=== PATIENT | male | born 1970 | race Caucasian/White ===

== ENCOUNTER 2023-07-06 17:24 | Inpatient (IN) | payer OTHER ==
[2023-07-06] MEDS ORDERED: Zofran 4 MG/2 ML VIAL IV ONE (18:36)
[2023-07-06] MEDS ORDERED: MORPHINE SULFATE 4 MG INJ IV ONE (18:36)
[2023-07-06] MEDS ORDERED: MORPHINE SULFATE 4 MG INJ ONE (18:43)
[2023-07-06] MEDS ORDERED: Zofran 4 MG/2 ML VIAL ONE (18:43)
--- NOTE | 2023-07-06 18:44 | ERPHSYRPT ---
- History of Present Illness Time Seen by Provider: 07/06/23 17:28 Source: patient Exam Limitations: no limitations Patient Subjective Stated Complaint: Left lower leg pain Triage Nursing Assessment: Patient brought into ED per EMS and transferred to bed with assist of 3. Patient A+O X 3. Patient's skin pink, warm and dry. Patient complains of left lower leg pain 06/29. Patient's left lower leg noted to be red, swollen and warm. Patient states his left lower leg started getting red and he saw Dr. Corbin on Monday and prescribed Levaquin 5000mg PO. Patient states his left lower leg with worse today and he is unable to stand. Physician History: 52 years old male with history of type 1 diabetes mellitus, hypertension, bilateral lower extremity chronic swelling presented in the ER with increasing swelling and pain with redness left lower extremity. Patient reported he slid few days ago and hit his left knee and next day he was seen at primary care office, was given shot of antibiotic and placed on Levaquin. Since then pain and swelling is progressively worsening moderate to severe sharp and hurts to ambulate. No knee swelling. Denies any fever or chills. Reports having similar symptoms few years back. Timing/Duration: day(s) (3), constant, gradual onset, worse Quality: painful Severity: moderate Location: extremities Associated Symptoms: rash, swelling/mass/lumps Allergies/Adverse Reactions: No Known Drug Allergies Allergy (Verified 07/06/23 17:25) Home Medications: Aspirin 325 mg PO DAILY 07/16/14 [History] Furosemide [Lasix] 40 mg PO DAILY 07/16/14 [History] Insulin Glargine [Lantus Insulin] 36 BID 07/16/14 [History] Insulin Lispro [Humalog] 26 TID 07/16/14 [History] lisinopriL [Lisinopril] 20 mg PO DAILY 07/16/14 [History] Hx Tetanus, Diphtheria Vaccination/Date Given: Yes Hx Influenza Vaccination/Date Given: No Hx Pneumococcal Vaccination/Date Given: No Immunizations Up to Date: Yes Travel Risk - International Travel Have you traveled outside of the country in past 3 weeks: No - Coronavirus Screening Are you exhibiting any of the following symptoms?: No Close contact with a COVID-19 positive Pt in past 14-21 Days: No - Vaccine Status Have you recieved a Covid-19 vaccination: Yes Veneer Marker: Unknown - Vaccination Dates Date of 2cond Vaccination (if applicable): na Dates if Unknown: na - Review of Systems Constitutional: No Symptoms Eyes: No Symptoms Ears, Nose, & Throat: No Symptoms Respiratory: No Symptoms Cardiac: No Symptoms Abdominal/Gastrointestinal: No Symptoms Genitourinary Symptoms: No Symptoms Musculoskeletal: Fall, Injury Skin: Cellulitis, Skin Lesions Neurological: No Symptoms Endocrine: No Symptoms Hematologic/Lymphatic: No Symptoms Immunological/Allergic: No Symptoms - Past Medical History Pertinent Past Medical History: Yes Neurological History: No Pertinent History ENT History: No Pertinent History Cardiac History: Coronary Artery Disease Respiratory History: No Pertinent History Endocrine Medical History: Diabetes Type II Musculoskeletal History: Other History: No Pertinent History Psycho-Social History: No Pertinent History Male Reproductive Disorders: No Pertinent History Other Medical History: PT HAS VASCULAR INSUFFICENCY BILAT LOWER LEGS AND HAS BEEN REFERRED TO [facility] FOR SURGERY - Past Surgical History Past Surgical History: Yes Other Surgical History: R EYE - Social History Smoking Status: Never smoker Exposure to second hand smoke: No Drug Use: none Patient Lives Alone: Yes - Nursing Vital Signs Nursing Vital Signs: Initial Vital Signs Temperature 98.2 F 07/06/23 17:26 Pulse Rate 102 H 07/06/23 17:26 Respiratory Rate 18 07/06/23 17:26 Blood Pressure 118/59 07/06/23 17:26 O2 Sat by Pulse Oximetry 95 07/06/23 17:26 Pain Scale Pain Intensity 9 - Physical Exam General Appearance: no apparent distress, alert Ears, Nose, Throat Exam: normal ENT inspection Neck Exam: normal inspection, full range of motion Respiratory Exam: normal breath sounds, lungs clear Cardiovascular Exam: regular rate/rhythm, normal heart sounds Gastrointestinal/Abdomen Exam: soft, normal bowel sounds, No tenderness Back Exam: normal inspection, normal range of motion Extremity Exam: ravi's sign, inflammation (Left lower extremity swellin g/redness, warm tender to touch.), swelling, tenderness Neurologic Exam: alert, oriented x 3, cooperative, 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 nml as tested Skin Exam: normal color SpO2 Interpretation: normal SpO2: 97 O2 Delivery: Room Air Ordered Tests: Active Orders 24 hr Category Date Time Status VENOUS UNILAT/LIMITED EXTREMIT [US] Stat Exams 07/06/23 19:12 Taken BLOOD CULTURE Stat Lab 07/06/23 19:20 Received CBC W DIFF Stat Lab 07/06/23 18:36 Completed CMP Stat Lab 07/06/23 19:20 Completed Lactic Acid Stat Lab 07/06/23 19:22 Completed PROCALCITONIN Stat Lab 07/06/23 19:20 Completed Medication Summary Generic Name Dose Route Start Last Admin Trade Name Meghna PRN Reason Stop Dose Admin Piperacillin Sod/Tazobactam 100 mls @ 200 mls/hr 07/06/23 20:18 Sod 3.375 gm/ Sodium Chloride IV 07/06/23 20:47 STAT ONE Vancomycin HCl 2 gm in 400 mls @ 133.333 mls/hr 07/06/23 20:19 Vancomycin 2 Gram/400 Ml Bag IV 07/06/23 23:18 STAT ONE Discontinued Medications Generic Name Dose Route Start Last Admin Trade Name Freq PRN Reason Stop Dose Admin Sodium Chloride Confirm 07/06/23 20:32 Sodium Chloride 100ml Mini-Bag Plus Administered 07/06/23 20:33 Dose 100 mls @ ud IV .STK-MED ONE Morphine Sulfate 4 mg 07/06/23 18:36 07/06/23 18:47 Morphine Sulfate 4 Mg/Ml Injection IV 07/06/23 18:37 4 mg STAT ONE Administration Morphine Sulfate Confirm 07/06/23 18:43 Morphine Sulfate 4 Mg/Ml Injection Administered 07/06/23 18:44 Dose 4 mg .ROUTE .STK-MED ONE Ondansetron HCl 4 mg 07/06/23 18:36 07/06/23 18:45 Ondansetron Hcl 4 Mg/2 Ml Vial IV 07/06/23 18:37 4 mg STAT ONE Administration Ondansetron HCl Confirm 07/06/23 18:43 Ondansetron Hcl 4 Mg/2 Ml Vial Administered 07/06/23 18:44 Dose 4 mg .ROUTE .STK-MED ONE Piperacillin Sod/Tazobactam Sod Confirm 07/06/23 20:32 Piperacillin/Tazobactam Sodium 3.375 Gm Vial Administered 07/06/23 20:33 Dose 3.375 gm IV .STK-MED ONE Lab/Rad Data: Laboratory Result Diagrams 07/06/23 18:36 07/06/23 19:20 Laboratory Results 07/06/23 07/06/23 07/06/23 Range/Units 19:22 19:20 19:20 WBC (4.0-10.5) x10^3/uL RBC (4.1-5.6) x10^6/uL Hgb (12.5-18.0) g/dL Hct (42-50) % MCV (78-100) fL MCH (26-32) pg MCHC (32-36) g/dL RDW (11.5-14.0) % Plt Count (150-450) x10^3/uL MPV (7.5-11.0) fL Gran % (36.0-66.0) % Immature Gran % (Auto) (0.00-0.4) % Nucleat RBC Rel Count (0.00-0.1) % Eos # (Auto) (0-0.5) x10^3/uL Immature Gran # (Auto) (0.00-0.03) x10^3u/L Absolute Lymphs (auto) (1.0-4.6) x10^3/uL Absolute Monos (auto) (0.0-1.3) x10^3/uL Absolute Nucleated RBC (0.00-0.01) x10^3u/L Lymphocytes % (24.0-44.0) % Monocytes % (0.0-12.0) % Eosinophils % (0.00-5.0) % Basophils % (0.0-0.4) % Absolute Granulocytes (1.4-6.9) x10^3/uL Basophils # (0-0.4) x10^3/uL Sodium 138 (137-145) mmol/L Potassium 4.2 (3.5-5.1) mmol/L Chloride 104 (98-107) mmol/L Carbon Dioxide 31 H (22-30) mmol/L Anion Gap 6.8 (5-15) MEQ/L BUN 17 (9-20) mg/dL Creatinine 1.07 (0.66-1.25) mg/dL Estimated GFR > 60.0 ML/MIN Glucose 121 H (74-106) mg/dL Lactic Acid 1.1 (0.4-2.0) Calcium 7.8 L (8.4-10.2) mg/dL Total Bilirubin 1.40 H (0.2-1.3) mg/dL AST 32 (17-59) U/L ALT 34 (0-50) U/L Alkaline Phosphatase 131 H (38-126) U/L Serum Total Protein 6.4 (6.3-8.2) g/dL Albumin 3.4 L (3.5-5.0) g/dL Procalcitonin 0.070 (0.030-0.080) ng/mL 07/06/23 Range/Units 18:36 WBC 9.0 (4.0-10.5) x10^3/uL RBC 4.86 (4.1-5.6) x10^6/uL Hgb 13.0 (12.5-18.0) g/dL Hct 42.0 (42-50) % MCV 86.4 (78-100) fL MCH 26.7 (26-32) pg MCHC 31.0 L (32-36) g/dL RDW 16.6 H (11.5-14.0) % Plt Count 234 (150-450) x10^3/uL MPV 9.9 (7.5-11.0) fL Gran % 72.0 H (36.0-66.0) % Immature Gran % (Auto) 0.2 (0.00-0.4) % Nucleat RBC Rel Count 0.0 (0.00-0.1) % Eos # (Auto) 0.09 (0-0.5) x10^3/uL Immature Gran # (Auto) 0.02 (0.00-0.03) x10^3u/L Absolute Lymphs (auto) 1.64 (1.0-4.6) x10^3/uL Absolute Monos (auto) 0.74 (0.0-1.3) x10^3/uL Absolute Nucleated RBC 0.00 (0.00-0.01) x10^3u/L Lymphocytes % 18.2 L (24.0-44.0) % Monocytes % 8.2 (0.0-12.0) % Eosinophils % 1.0 (0.00-5.0) % Basophils % 0.4 (0.0-0.4) % Absolute Granulocytes 6.47 (1.4-6.9) x10^3/uL Basophils # 0.04 (0-0.4) x10^3/uL Sodium (137-145) mmol/L Potassium (3.5-5.1) mmol/L Chloride (98-107) mmol/L Carbon Dioxide (22-30) mmol/L Anion Gap (5-15) MEQ/L BUN (9-20) mg/dL Creatinine (0.66-1.25) mg/dL Estimated GFR ML/MIN Glucose (74-106) mg/dL Lactic Acid (0.4-2.0) Calcium (8.4-10.2) mg/dL Total Bilirubin (0.2-1.3) mg/dL AST (17-59) U/L ALT (0-50) U/L Alkaline Phosphatase (38-126) U/L Serum Total Protein (6.3-8.2) g/dL Albumin (3.5-5.0) g/dL Procalcitonin (0.030-0.080) ng/mL - Progress Progress: improved, pain not gone completely, re-examined Progress Note: 07/06/23 18:44 52 years old male with history of type 1 diabetes mellitus, hypertension, bilateral lower extremity chronic swelling presented in the ER with increasing swelling and pain with redness left lower extremity. Patient reported he slid few days ago and hit his left knee and next day he was seen at primary care office, was given shot of antibiotic and placed on Levaquin. Since then pain and swelling is progressively worsening moderate to severe sharp and hurts to ambulate. No knee swelling. Denies any fever or chills. Reports having similar symptoms few years back. Patient has left lower leg swelling redness. Warm and tender to touch. Positive Homans' sign. Distal neurovascular intact. We will do symptomatic treatment for pain and will obtain culture, patient has outpatient treatment failure, will be started on broad-spectrum antibiotics and admission. 07/06/23 20:36 Patient has normal white count and lactate. Obtain ultrasound venous left lower extremity which is negative for occlusive DVT per preliminary read.. Official report is pending. Patient is started on broad-spectrum antibiotics Zosyn and vancomycin. Patient has outpatient treatment failure, would benefit with IV antibiotic and admission. I have discussed with Dr. Juarez, reviewed history, work-up and patient is accepted for admission. Discussed with : Other Will see patient in: hospital (observation) Counseled pt/family regarding: lab results, diagnosis, rad results Medical Desision Making - Discussion of managment Care discussed with:: hospitalist (Dr. Juarez 8:29 PM) Reviewed:: Test results Agreed on:: Treatment plan, place in obs Will see patient: in hospital - Diagnostic Testing Diagnostic test were ordered, analyzed, and reviewed by me: Yes Radiological Interpretation: Reviewed by me - Risk of complications The pt has a high risk of morbidity or mortality based on: Decision regarding hospitilization or escalation of hosp level of care - Departure Departure Disposition: Observation Clinical Impression: Cellulitis of left lower extremity Condition: Stable Critical Care Time: No Referrals: SHILPA CORBIN MD [Primary Care Provider] - Follow up/PCP as directed
[2023-07-06 19:38] LABS: Absolute Neutrophil Ct (ANC) 6.47 x10^3/uL (1.4-6.9); BASOPHIL % 0.4 % (0.0-0.4); Basophil (Absolute #) 0.04 x10^3/uL (0-0.4); Eosinophil (Absolute #) 0.09 x10^3/uL (0-0.5); IMMATURE GRAN # 0.02 x10^3u/L (0.00-0.03); IMMATURE GRAN % 0.2 % (0.00-0.4); Lymphocyte (Absolute #) 1.64 x10^3/uL (1.0-4.6); Lymphocytes % 18.2 % (24.0-44.0); Mean Cell Volume 86.4 fL (78-100); Mean Corpuscular Hemoglobin 26.7 pg (26-32); Mean Platelet Volume 9.9 fL (7.5-11.0); Monocyte (Absolute #) 0.74 x10^3/uL (0.0-1.3); Monocytes % 8.2 % (0.0-12.0); Platelet Count 234 x10^3/uL (150-450); Red Blood Count 4.86 x10^6/uL (4.1-5.6); Red Cell Distribution Width 16.6 % (11.5-14.0)
[2023-07-06 19:48] LABS: ALBUMIN 3.4 g/dL (3.5-5.0); ALKALINE PHOSPHATASE 131 U/L (38-126); ANION GAP 6.8 MEQ/L (5-15); BLOOD UREA NITROGEN 17 mg/dL (9-20); CHLORIDE 104 mmol/L (98-107); Calcium 7.8 mg/dL (8.4-10.2); Carbon Dioxide 31 mmol/L (22-30); Creatinine 1 1.07 mg/dL (0.66-1.25); EST GLOMERULAR FILTRATION RATE > 60.0 ML/MIN; Glucose 121 mg/dL (74-106); Potassium 4.2 mmol/L (3.5-5.1); SGOT/AST 32 U/L (17-59); SGPT/ALT 34 U/L (0-50); SODIUM 138 mmol/L (137-145); Total Protein 6.4 g/dL (6.3-8.2)
[2023-07-06] MEDS ORDERED: PIPERACILLIN/TAZOBACTAM 3.375 GM in Sodium Chloride 100ML MINI-BAG PLUS 100 ML IV ONE (20:18)
[2023-07-06] MEDS ORDERED: VANCOMYCIN 2 GRAM/400 ML BAG 2 GM/400 ML PIGGYBACK IV ONE ×2 (20:19→21:30)
[2023-07-06] MEDS ORDERED: PIPERACILLIN/TAZOBACTAM IV ONE (20:32)
[2023-07-06] MEDS ORDERED: Sodium Chloride 100ML MINI-BAG PLUS 100 ML IV ONE (20:32)
[2023-07-07] MEDS ORDERED: VANCOMYCIN 1 GRAM/200 ML BAG 1 GM/200 ML PIGGYBACK IV SCH (00:45)
--- NOTE | 2023-07-07 00:55 | PCM.HP ---
History of Present Illness - Chief Complaint Chief Complaint: Left lower extremity cellulitis Date: 07/07/23 History of Present Illness: Mr. Haddad is a 52 year-old male with DM1, HTN, and PVD who presents with cellulitis. He admits to hitting his left knee on some gravel while playing touch football 5 days ago, and due to subsequent pain, redness, and swelling he pursued medical care with his PCP - he was prescribed outpatient levaquin. He presents today with worsening pain, redness, and swelling to his left lower extremity, and upon arrival to [facility], his laboratory data and imaging were fairly unremarkable - doppler US was negative. On my examination, he is resting comfortably denying any current fevers, chills, nausea, vomiting, diarrhea, syncope, presyncope, visual changes, orthopnea, PND, odynophagia, dysphagia, chest pain, shortness of breath, belly pain, dysuria, hematuria, melena, hematochezia, or neurological changes. All other systems were reviewed and were negative. - Review of Systems Constitutional: Other ( PER HPI) Medications & Allergies Home Medications: Home Medication List Aspirin 325 mg PO DAILY 07/16/14 [History Confirmed 07/16/14] Furosemide [Lasix] 40 mg PO DAILY 07/16/14 [History Confirmed 07/16/14] Insulin Glargine [Lantus Insulin] 36 BID 07/16/14 [History Confirmed 07/16/14] Insulin Lispro [Humalog] 26 TID 07/16/14 [History Confirmed 07/16/14] lisinopriL [Lisinopril] 20 mg PO DAILY 07/16/14 [History Confirmed 07/16/14] Allergies/Adverse Reactions: Allergies Allergy/AdvReac Type Severity Reaction Status Date / Time No Known Drug Allergies Allergy Verified 07/06/23 17:25 - Past Medical History Past Medical History: Yes Neurological History: No Pertinent History ENT History: No Pertinent History Cardiac History: Coronary Artery Disease Respiratory History: No Pertinent History Endocrine Medical History: Diabetes Type I Musculoskelatal History: Other History: No Pertinent History Pyscho-Social History: No Pertinent History Male Reproductive Disorders: No Pertinent History Comment: PT HAS VASCULAR INSUFFICENCY BILAT LOWER LEGS AND HAS BEEN REFERRED TO [facility] FOR SURGERY - Past Surgical History Past Surgical History: Yes Neuro Surgical History: No Pertinent History Cardiac History: No Pertinent History Respiratory Surgery: No Pertinent History GI Surgical History: No Pertinent History Genitourinary Surgical Hx: No Pertinent History Musculskeletal Surgical Hx: No Pertinent History Male Surgical History: No Pertinent History Other Surgical History: artificial R EYE - Social History Smoking Status: Never smoker Exposure to second hand smoke: No Alcohol: None Drug Use: none - Physical Exam Vital Signs: Vital Signs - 24 hr Temp Pulse Resp BP BP Pulse Ox 07/06/23 22:19 98.2 F 90 22 118/59 90 L 07/06/23 21:30 90 22 104/69 99 07/06/23 21:00 88 17 127/74 92 L 07/06/23 20:40 97 07/06/23 20:30 85 22 124/90 98 07/06/23 20:00 85 17 108/65 98 07/06/23 19:30 85 22 111/53 97 07/06/23 19:00 91 H 20 127/83 95 07/06/23 18:37 93 H 19 106/59 96 07/06/23 18:30 95 H 14 119/75 97 07/06/23 18:00 94 H 17 119/69 95 07/06/23 17:30 94 H 13 118/59 92 L 07/06/23 17:26 98.2 F 102 H 18 118/59 95 General Appearance: no apparent distress, alert Neurologic Exam: alert, oriented x 3, cooperative, normal mood/affect, nml cerebellar function, nml station & gait, sensation nml, No motor deficits Eye Exam: PERRL/EOMI, eyes nml inspection Ears, Nose, Throat Exam: normal ENT inspection, TMs normal, pharynx normal, moist mucous membranes Neck Exam: normal inspection, non-tender, supple, full range of motion Respiratory Exam: normal breath sounds, lungs clear, No respiratory distress Cardiovascular Exam: regular rate/rhythm, normal heart sounds, normal peripheral pulses Gastrointestinal/Abdomen Exam: soft, normal bowel sounds, No tenderness, No mass Back Exam: normal inspection, normal range of motion, No CVA tenderness, No v ertebral tenderness Extremity Exam: swelling, tenderness Skin Exam: rash Lymphatic Exam: No adenopathy Results - Labs Lab/Micro Results: Lab Results-Last 24 Hours 08/17/23 08/17/23 08/17/23 Range/Units 18:36 19:20 19:20 WBC 9.0 (4.0-10.5) x10^3/uL RBC 4.86 (4.1-5.6) x10^6/uL Hgb 13.0 (12.5-18.0) g/dL Hct 42.0 (42-50) % MCV 86.4 (78-100) fL MCH 26.7 (26-32) pg MCHC 31.0 L (32-36) g/dL RDW 16.6 H (11.5-14.0) % Plt Count 234 (150-450) x10^3/uL MPV 9.9 (7.5-11.0) fL Gran % 72.0 H (36.0-66.0) % Immature Gran % (Auto) 0.2 (0.00-0.4) % Nucleat RBC Rel Count 0.0 (0.00-0.1) % Eos # (Auto) 0.09 (0-0.5) x10^3/uL Immature Gran # (Auto) 0.02 (0.00-0.03) x10^3u/L Absolute Lymphs (auto) 1.64 (1.0-4.6) x10^3/uL Absolute Monos (auto) 0.74 (0.0-1.3) x10^3/uL Absolute Nucleated RBC 0.00 (0.00-0.01) x10^3u/L Lymphocytes % 18.2 L (24.0-44.0) % Monocytes % 8.2 (0.0-12.0) % Eosinophils % 1.0 (0.00-5.0) % Basophils % 0.4 (0.0-0.4) % Absolute Granulocytes 6.47 (1.4-6.9) x10^3/uL Basophils # 0.04 (0-0.4) x10^3/uL Sodium 138 (137-145) mmol/L Potassium 4.2 (3.5-5.1) mmol/L Chloride 104 (98-107) mmol/L Carbon Dioxide 31 H (22-30) mmol/L Anion Gap 6.8 (5-15) MEQ/L BUN 17 (9-20) mg/dL Creatinine 1.07 (0.66-1.25) mg/dL Estimated GFR > 60.0 ML/MIN Glucose 121 H (74-106) mg/dL Lactic Acid (0.4-2.0) Calcium 7.8 L (8.4-10.2) mg/dL Total Bilirubin 1.40 H (0.2-1.3) mg/dL AST 32 (17-59) U/L ALT 34 (0-50) U/L Alkaline Phosphatase 131 H (38-126) U/L Serum Total Protein 6.4 (6.3-8.2) g/dL Albumin 3.4 L (3.5-5.0) g/dL Procalcitonin 0.070 (0.030-0.080) ng/mL 07/06/23 Range/Units 19:22 WBC (4.0-10.5) x10^3/uL RBC (4.1-5.6) x10^6/uL Hgb (12.5-18.0) g/dL Hct (42-50) % MCV (78-100) fL MCH (26-32) pg MCHC (32-36) g/dL RDW (11.5-14.0) % Plt Count (150-450) x10^3/uL MPV (7.5-11.0) fL Gran % (36.0-66.0) % Immature Gran % (Auto) (0.00-0.4) % Nucleat RBC Rel Count (0.00-0.1) % Eos # (Auto) (0-0.5) x10^3/uL Immature Gran # (Auto) (0.00-0.03) x10^3u/L Absolute Lymphs (auto) (1.0-4.6) x10^3/uL Absolute Monos (auto) (0.0-1.3) x10^3/uL Absolute Nucleated RBC (0.00-0.01) x10^3u/L Lymphocytes % (24.0-44.0) % Monocytes % (0.0-12.0) % Eosinophils % (0.00-5.0) % Basophils % (0.0-0.4) % Absolute Granulocytes (1.4-6.9) x10^3/uL Basophils # (0-0.4) x10^3/uL Sodium (137-145) mmol/L Potassium (3.5-5.1) mmol/L Chloride (98-107) mmol/L Carbon Dioxide (22-30) mmol/L Anion Gap (5-15) MEQ/L BUN (9-20) mg/dL Creatinine (0.66-1.25) mg/dL Estimated GFR ML/MIN Glucose (74-106) mg/dL Lactic Acid 1.1 (0.4-2.0) Calcium (8.4-10.2) mg/dL Total Bilirubin (0.2-1.3) mg/dL AST (17-59) U/L ALT (0-50) U/L Alkaline Phosphatase (38-126) U/L Serum Total Protein (6.3-8.2) g/dL Albumin (3.5-5.0) g/dL Procalcitonin (0.030-0.080) ng/mL - Radiology Impressions Radiology Exams & Impressions: Radiology Procedures Category Date Time Status VENOUS UNILAT/LIMITED EXTREMIT [US] Stat Exams 07/06/23 19:12 Taken Assessment/Plan (1) Cellulitis of left lower extremity Current Visit: Yes Status: Acute Assessment & Plan: ASSESSMENT 1. Cellulitis 2. Type I Diabetes Mellitus 3. Hypertension 4. Peripheral Vascular Disease 5. Obesity PLAN 1. Broad Abx x 48 hours; cultures pending 2. US doppler negative for DVT 3. Gentle fluids x 1 L - hold lasix 4. Pain control with tylenol and morphine 5. Elevation of leg 6. Wound Care Lovenox The entirety of this encounter was done via telemedicine Everton Juarez MD Pulmonary and Critical Care Medicine Code(s): L03.116 - CELLULITIS OF LEFT LOWER LIMB Telemedicine Encounter - Telemedicine Encounter Telemedicine Encounter: The entirety of this encounter was performed via Telemedicine"
[2023-07-07] MEDS: Lactated Ringers 1,000 ML IV SCH ×2 (01:23→13:28)
[2023-07-07] MEDS ORDERED: PIPERACILLIN/TAZOBACTAM IV ONE ×2 (04:50→05:49)
[2023-07-07] MEDS ORDERED: Sodium Chloride 100ML MINI-BAG PLUS 100 ML IV ONE ×2 (04:51→05:50)
[2023-07-07 05:14] LABS: Absolute Neutrophil Ct (ANC) 7.32 x10^3/uL (1.4-6.9); BASOPHIL % 0.6 % (0.0-0.4); Basophil (Absolute #) 0.06 x10^3/uL (0-0.4); Eosinophil % 1.2 % (0.00-5.0); Eosinophil (Absolute #) 0.12 x10^3/uL (0-0.5); Hematocrit 43.4 % (42-50); Hemoglobin 13.1 g/dL (12.5-18.0); IMMATURE GRAN # 0.04 x10^3u/L (0.00-0.03); IMMATURE GRAN % 0.4 % (0.00-0.4); Lymphocyte (Absolute #) 1.74 x10^3/uL (1.0-4.6); Lymphocytes % 17.2 % (24.0-44.0); Mean Cell Volume 88.6 fL (78-100); Mean Corpuscular Hemoglobin 26.7 pg (26-32); Mean Corpuscular Hgb Concent. 30.2 g/dL (32-36); Mean Platelet Volume 10.2 fL (7.5-11.0); Monocyte (Absolute #) 0.81 x10^3/uL (0.0-1.3); Neutrophil % 72.6 % (36.0-66.0); Platelet Count 230 x10^3/uL (150-450); Red Cell Distribution Width 16.9 % (11.5-14.0); White Blood Count 10.1 x10^3/uL (4.0-10.5)
[2023-07-07] MEDS: MORPHINE SULFATE 2 MG INJ IV PRN ×3 (05:27→21:55)
[2023-07-07 05:38] LABS: ALBUMIN 3.5 g/dL (3.5-5.0); ALKALINE PHOSPHATASE 136 U/L (38-126); ANION GAP 10.1 MEQ/L (5-15); BLOOD UREA NITROGEN 17 mg/dL (9-20); CHLORIDE 101 mmol/L (98-107); Calcium 7.9 mg/dL (8.4-10.2); Carbon Dioxide 29 mmol/L (22-30); Creatinine 1 1.16 mg/dL (0.66-1.25); EST GLOMERULAR FILTRATION RATE > 60.0 ML/MIN; Glucose 174 mg/dL (74-106); Potassium 4.1 mmol/L (3.5-5.1); SGOT/AST 32 U/L (17-59); SGPT/ALT 34 U/L (0-50); SODIUM 136 mmol/L (137-145); Total Protein 6.4 g/dL (6.3-8.2)
[2023-07-07] MEDS: PIPERACILLIN/TAZOBACTAM 4.5 GM in Sodium Chloride 100ML MINI-BAG PLUS 100 ML IV SCH ×3 (05:51→21:43)
[2023-07-07] MEDS ORDERED: Lantus Insulin SQ SCH ×2 (08:00→22:00)
[2023-07-07] MEDS ORDERED: HUMALOG SQ SCH ×3 (08:00→22:00)
--- NOTE | 2023-07-07 08:45 | XRAY ---
Indication: Left leg pain and swelling. Two-dimensional sonogram and color Doppler imaging of the major venous vessels of the left performed. Comparison: None Cycle Specialist notes limited exam due to patient body habitus. No obvious thrombus seen in the examined deep venous vessels of the left leg including greater saphenous vein. Veins demonstrate normal compressibility. Venous waveforms are normal with and without augmentation. Impression: Left leg grossly negative for DVT. Comment: Preliminary report was given.
[2023-07-07] MEDS ORDERED: NON-FORMULARY ITEM (Aspirin [Aspirin] 325 MG Tablet) PO SCH (10:00)
[2023-07-07] MEDS ORDERED: LASIX 20 MG PO PRN (10:09)
[2023-07-07] MEDS ORDERED: NON-FORMULARY ITEM (Insulin Lispro 100 UNIT/ML Ml) SQ SCH (11:30)
[2023-07-07] MEDS: Ecotrin 325 MG PO SCH (11:45)
[2023-07-07] MEDS: Zestril 20 MG PO SCH (11:45)
[2023-07-07] MEDS: ENOXAPARIN SODIUM SQ SCH (11:46)
[2023-07-07] MEDS: HUMALOG SQ SCH ×2 (12:21→17:25)
[2023-07-07] MEDS: ceLEXa 20 MG PO SCH (12:22)
[2023-07-07] MEDS: LASIX 20 MG PO SCH (12:22)
[2023-07-07] MEDS: TYLENOL 325 MG PO PRN (14:39)
[2023-07-07] MEDS: VANCOMYCIN 2 GRAM/400 ML BAG 2 GM/400 ML PIGGYBACK IV SCH (15:49)
[2023-07-07] MEDS: Lantus Insulin SQ SCH (21:52)
[2023-07-07] MEDS ORDERED: NON-FORMULARY ITEM (Insulin Glargine,Hum.Rec.Anlog [Basaglar Kwikpen U-100] 100 UNIT/ML In SQ SCH (22:00)
[2023-07-08] MEDS: VANCOMYCIN 2 GRAM/400 ML BAG 2 GM/400 ML PIGGYBACK IV SCH ×2 (01:39→13:46)
[2023-07-08] MEDS: Lactated Ringers 1,000 ML IV SCH ×2 (01:39→08:15)
[2023-07-08] MEDS: PIPERACILLIN/TAZOBACTAM 4.5 GM in Sodium Chloride 100ML MINI-BAG PLUS 100 ML IV SCH ×3 (05:15→21:30)
[2023-07-08 05:35] LABS: Absolute Neutrophil Ct (ANC) 6.52 x10^3/uL (1.4-6.9); BASOPHIL % 0.6 % (0.0-0.4); Basophil (Absolute #) 0.05 x10^3/uL (0-0.4); Eosinophil % 2.1 % (0.00-5.0); Eosinophil (Absolute #) 0.19 x10^3/uL (0-0.5); Hematocrit 42.6 % (42-50); Hemoglobin 12.9 g/dL (12.5-18.0); IMMATURE GRAN # 0.04 x10^3u/L (0.00-0.03); IMMATURE GRAN % 0.4 % (0.00-0.4); Lymphocytes % 14.3 % (24.0-44.0); Mean Cell Volume 88.2 fL (78-100); Mean Corpuscular Hemoglobin 26.7 pg (26-32); Mean Corpuscular Hgb Concent. 30.3 g/dL (32-36); Mean Platelet Volume 9.8 fL (7.5-11.0); Monocyte (Absolute #) 0.98 x10^3/uL (0.0-1.3); Monocytes % 10.8 % (0.0-12.0); Neutrophil % 71.8 % (36.0-66.0); Platelet Count 252 x10^3/uL (150-450); Red Blood Count 4.83 x10^6/uL (4.1-5.6); Red Cell Distribution Width 16.9 % (11.5-14.0); White Blood Count 9.1 x10^3/uL (4.0-10.5)
[2023-07-08 05:51] LABS: ALBUMIN 3.3 g/dL (3.5-5.0); ALKALINE PHOSPHATASE 127 U/L (38-126); ANION GAP 9.2 MEQ/L (5-15); BLOOD UREA NITROGEN 17 mg/dL (9-20); CHLORIDE 103 mmol/L (98-107); Calcium 8.1 mg/dL (8.4-10.2); Carbon Dioxide 30 mmol/L (22-30); Creatinine 1 1.24 mg/dL (0.66-1.25); EST GLOMERULAR FILTRATION RATE > 60.0 ML/MIN; Glucose 86 mg/dL (74-106); SGOT/AST 26 U/L (17-59); SGPT/ALT 30 U/L (0-50); SODIUM 138 mmol/L (137-145); Total Protein 6.4 g/dL (6.3-8.2)
--- NOTE | 2023-07-08 07:59 | PCM.NOTE ---
Date and Time: 07/08/23 0033 Subjective Assessment: Mr. Haddad is a 52 year-old male with DM1, HTN, and PVD who presents with cellulitis. He admits to hitting his left knee on some gravel while playing touch football 5 days ago, he has had subsequent pain, redness, and swelling of LLE and he pursued medical care with his PCP - he was prescribed outpatient levaquin. He presented 07/07/23 with worsening pain, redness, and swelling to his left lower extremity. Doppler US obtained and was negative. Today his left ankle is swollen and he is c/o increased pain and edema. Erythema has improved. Discussed with pt his home dose of Lasix for clarification. He reported he takes 1 tab jeramie day and 1 tab at bedtime on average. He sometimes takes 2 tabs at bedtime depending on how edematous his legs are. His lasix was put in on admit orders as PRN at HS. I will change to 40mg at bedtime since he has increased edema. I aslo gave an 40 MG for the daytime dose as well today. Will obtain and XR of the left ankle since pain has increased overnight. LR IV fluids were stopped. Overnight his oxygen dropped into the 90's and 2 LNC was placed on pt. When awake it is no longer needed. Discussed his possible risk for sleep apnea and that he should have an OP sleep study after D/C. He denies further c/o at this time. <KAMERON CARTAGENA - Last Filed: 07/08/23 11:37> Date and Time: 07/08/23 1317 <MICHAEL MANJARREZ - Last Filed: 07/08/23 13:18> - Review of Systems Constitutional: No Fever, No Chills Eyes: No Symptoms Ears, Nose, & Throat: No Symptoms Respiratory: No Cough, No Short Of Breath Cardiac: No Chest Pain, No Edema, No Syncope Abdominal/Gastrointestinal: No Abdominal Pain, No Nausea, No Vomiting, No Diarrhea Genitourinary Symptoms: No Dysuria Musculoskeletal: Joint Pain (left ankle), Joint Swelling (Left ankle), No Back Pain, No Neck Pain Skin: Cellulitis (LLE), Skin Lesions (lesion on left knee from fall playing football [employer]. ), No Rash Neurological: No Dizziness, No Focal Weakness, No Sensory Changes Psychological: No Symptoms Endocrine: No Symptoms Hematologic/Lymphatic: No Symptoms Immunological/Allergic: No Symptoms <KAMERON CARTAGENA - Last Filed: 07/08/23 11:37> Objective Exam General Appearance: no apparent distress, alert, obese Neurologic Exam: alert, oriented x 3, cooperative, normal mood/affect, nml cerebellar function, sensation nml, abnormal gait (due to edema of LLE), No mot or deficits Skin Exam: normal color, warm, dry, other (Erythema and edema of LLE, appears to be improving.) Eye Exam: PERRL, EOMI, eyes nml inspection Ears, Nose, Throat Exam: normal ENT inspection, pharynx normal, moist mucous membranes Neck Exam: normal inspection, non-tender, supple, full range of motion Respiratory Exam: normal breath sounds, lungs clear, No respiratory distress Cardiovascular Exam: regular rate/rhythm, normal heart sounds Gastrointestinal/Abdomen Exam: soft, No tenderness, No mass Extremity Exam: normal range of motion, limited range of motion (LLE), tenderness (LLE), other (Left ankle pain and edema) Back Exam: normal inspection, normal range of motion, No CVA tenderness, No vertebral tenderness Male Genitalia Exam: deferred Rectal Exam: deferred <KAMERON CARTAGENA - Last Filed: 07/08/23 11:37> OBJECTIVE DATA Vital Signs: Vital Signs - 24 hr Temp Pulse Resp BP Pulse Ox 07/08/23 07:24 97.3 F 95 H 18 137/70 90 L 07/08/23 03:35 97.9 F 85 19 119/86 95 07/08/23 00:00 98.7 F 89 20 137/63 95 07/07/23 20:00 98.6 F 95 H 20 119/55 94 L 07/07/23 16:00 96.7 F 95 H 19 123/73 98 07/07/23 11:32 96.6 F 97 H 16 136/72 94 L Pain Assessment - Last Documented Pain Intensity 8 Pain Scale Used 0-10 Pain Scale Intake and Output: Intake & Output 07/05/23 07/06/23 07/07/23 07/08/23 11:59 11:59 11:59 11:59 Intake Total 1706 5728 Output Total 1150 Balance 1707 1618 Weight 161.5 kg Lab Results: Lab Results-Last 24 Hours 07/07/23 07/07/23 07/07/23 Range/Units 11:17 14:41 16:30 WBC (4.0-10.5) x10^3/uL RBC (4.1-5.6) x10^6/uL Hgb (12.5-18.0) g/dL Hct (42-50) % MCV (78-100) fL MCH (26-32) pg MCHC (32-36) g/dL RDW (11.5-14.0) % Plt Count (150-450) x10^3/uL MPV (7.5-11.0) fL Gran % (36.0-66.0) % Immature Gran % (Auto) (0.00-0.4) % Nucleat RBC Rel Count (0.00-0.1) % Eos # (Auto) (0-0.5) x10^3/uL Immature Gran # (Auto) (0.00-0.03) x10^3u/L Absolute Lymphs (auto) (1.0-4.6) x10^3/uL Absolute Monos (auto) (0.0-1.3) x10^3/uL Absolute Nucleated RBC (0.00-0.01) x10^3u/L Lymphocytes % (24.0-44.0) % Monocytes % (0.0-12.0) % Eosinophils % (0.00-5.0) % Basophils % (0.0-0.4) % Absolute Granulocytes (1.4-6.9) x10^3/uL Basophils # (0-0.4) x10^3/uL Sodium (137-145) mmol/L Potassium (3.5-5.1) mmol/L Chloride (98-107) mmol/L Carbon Dioxide (22-30) mmol/L Anion Gap (5-15) MEQ/L BUN (9-20) mg/dL Creatinine (0.66-1.25) mg/dL Estimated GFR ML/MIN Glucose (74-106) mg/dL POC Glucometer 188 H 264 H (74 to 106) mg/dL Hemoglobin A1c 8.33 H (4.5-6.0) % Calcium (8.4-10.2) mg/dL Magnesium (1.6-2.3) mg/dL Total Bilirubin (0.2-1.3) mg/dL AST (17-59) U/L ALT (0-50) U/L Alkaline Phosphatase (38-126) U/L Serum Total Protein (6.3-8.2) g/dL Albumin (3.5-5.0) g/dL 07/07/23 07/08/23 07/08/23 Range/Units 20:50 05:25 05:25 WBC 9.1 (4.0-10.5) x10^3/uL RBC 4.83 (4.1-5.6) x10^6/uL Hgb 12.9 (12.5-18.0) g/dL Hct 42.6 (42-50) % MCV 88.2 (78-100) fL MCH 26.7 (26-32) pg MCHC 30.3 L (32-36) g/dL RDW 16.9 H (11.5-14.0) % Plt Count 252 (150-450) x10^3/uL MPV 9.8 (7.5-11.0) fL Gran % 71.8 H (36.0-66.0) % Immature Gran % (Auto) 0.4 (0.00-0.4) % Nucleat RBC Rel Count 0.0 (0.00-0.1) % Eos # (Auto) 0.19 (0-0.5) x10^3/uL Immature Gran # (Auto) 0.04 H (0.00-0.03) x10^3u/L Absolute Lymphs (auto) 1.30 (1.0-4.6) x10^3/uL Absolute Monos (auto) 0.98 (0.0-1.3) x10^3/uL Absolute Nucleated RBC 0.00 (0.00-0.01) x10^3u/L Lymphocytes % 14.3 L (24.0-44.0) % Monocytes % 10.8 (0.0-12.0) % Eosinophils % 2.1 (0.00-5.0) % Basophils % 0.6 (0.0-0.4) % Absolute Granulocytes 6.52 (1.4-6.9) x10^3/uL Basophils # 0.05 (0-0.4) x10^3/uL Sodium 138 (137-145) mmol/L Potassium 4.0 (3.5-5.1) mmol/L Chloride 103 (98-107) mmol/L Carbon Dioxide 30 (22-30) mmol/L Anion Gap 9.2 (5-15) MEQ/L BUN 17 (9-20) mg/dL Creatinine 1.24 (0.66-1.25) mg/dL Estimated GFR > 60.0 ML/MIN Glucose 86 (74-106) mg/dL POC Glucometer 215 H (74 to 106) mg/dL Hemoglobin A1c (4.5-6.0) % Calcium 8.1 L (8.4-10.2) mg/dL Magnesium (1.6-2.3) mg/dL Total Bilirubin 1.70 H (0.2-1.3) mg/dL AST 26 (17-59) U/L ALT 30 (0-50) U/L Alkaline Phosphatase 127 H (38-126) U/L Serum Total Protein 6.4 (6.3-8.2) g/dL Albumin 3.3 L (3.5-5.0) g/dL 07/08/23 07/08/23 Range/Units 05:25 06:57 WBC (4.0-10.5) x10^3/uL RBC (4.1-5.6) x10^6/uL Hgb (12.5-18.0) g/dL Hct (42-50) % MCV (78-100) fL MCH (26-32) pg MCHC (32-36) g/dL RDW (11.5-14.0) % Plt Count (150-450) x10^3/uL MPV (7.5-11.0) fL Gran % (36.0-66.0) % Immature Gran % (Auto) (0.00-0.4) % Nucleat RBC Rel Count (0.00-0.1) % Eos # (Auto) (0-0.5) x10^3/uL Immature Gran # (Auto) (0.00-0.03) x10^3u/L Absolute Lymphs (auto) (1.0-4.6) x10^3/uL Absolute Monos (auto) (0.0-1.3) x10^3/uL Absolute Nucleated RBC (0.00-0.01) x10^3u/L Lymphocytes % (24.0-44.0) % Monocytes % (0.0-12.0) % Eosinophils % (0.00-5.0) % Basophils % (0.0-0.4) % Absolute Granulocytes (1.4-6.9) x10^3/uL Basophils # (0-0.4) x10^3/uL Sodium (137-145) mmol/L Potassium (3.5-5.1) mmol/L Chloride (98-107) mmol/L Carbon Dioxide (22-30) mmol/L Anion Gap (5-15) MEQ/L BUN (9-20) mg/dL Creatinine (0.66-1.25) mg/dL Estimated GFR ML/MIN Glucose (74-106) mg/dL POC Glucometer 116 H (74 to 106) mg/dL Hemoglobin A1c (4.5-6.0) % Calcium (8.4-10.2) mg/dL Magnesium 2.2 (1.6-2.3) mg/dL Total Bilirubin (0.2-1.3) mg/dL AST (17-59) U/L ALT (0-50) U/L Alkaline Phosphatase (38-126) U/L Serum Total Protein (6.3-8.2) g/dL Albumin (3.5-5.0) g/dL Radiology Exams: Radiology Procedures Category Date Time Status VENOUS UNILAT/LIMITED EXTREMIT [US] Stat Exams 07/06/23 19:12 Completed <KAMERON CARTAGENA - Last Filed: 07/08/23 11:37> Vital Signs: Vital Signs - 24 hr Temp Pulse Resp BP Pulse Ox 07/08/23 11:54 96.9 F 97 H 17 119/65 94 L 07/08/23 10:02 91 L 07/08/23 07:24 97.3 F 95 H 18 137/70 90 L 07/08/23 03:35 97.9 F 85 19 119/86 95 07/08/23 00:00 98.7 F 89 20 137/63 95 07/07/23 20:00 98.6 F 95 H 20 119/55 94 L 07/07/23 16:00 96.7 F 95 H 19 123/73 98 Pain Assessment - Last Documented Pain Intensity 8 Pain Scale Used 0-10 Pain Scale Intake and Output: Intake & Output 07/06/23 07/07/23 07/08/23 07/09/23 11:59 11:59 11:59 11:59 Intake Total 1707 7458 Output Total 1150 Balance 1707 1618 Weight 161.5 kg Lab Results: Lab Results-Last 24 Hours 07/07/23 07/07/23 07/07/23 Range/Units 14:41 16:30 20:50 WBC (4.0-10.5) x10^3/uL RBC (4.1-5.6) x10^6/uL Hgb (12.5-18.0) g/dL Hct (42-50) % MCV (78-100) fL MCH (26-32) pg MCHC (32-36) g/dL RDW (11.5-14.0) % Plt Count (150-450) x10^3/uL MPV (7.5-11.0) fL Gran % (36.0-66.0) % Immature Gran % (Auto) (0.00-0.4) % Nucleat RBC Rel Count (0.00-0.1) % Eos # (Auto) (0-0.5) x10^3/uL Immature Gran # (Auto) (0.00-0.03) x10^3u/L Absolute Lymphs (auto) (1.0-4.6) x10^3/uL Absolute Monos (auto) (0.0-1.3) x10^3/uL Absolute Nucleated RBC (0.00-0.01) x10^3u/L Lymphocytes % (24.0-44.0) % Monocytes % (0.0-12.0) % Eosinophils % (0.00-5.0) % Basophils % (0.0-0.4) % Absolute Granulocytes (1.4-6.9) x10^3/uL Basophils # (0-0.4) x10^3/uL Sodium (137-145) mmol/L Potassium (3.5-5.1) mmol/L Chloride (98-107) mmol/L Carbon Dioxide (22-30) mmol/L Anion Gap (5-15) MEQ/L BUN (9-20) mg/dL Creatinine (0.66-1.25) mg/dL Estimated GFR ML/MIN Glucose (74-106) mg/dL POC Glucometer 264 H 215 H (74 to 106) mg/dL Hemoglobin A1c 8.33 H (4.5-6.0) % Calcium (8.4-10.2) mg/dL Magnesium (1.6-2.3) mg/dL Total Bilirubin (0.2-1.3) mg/dL AST (17-59) U/L ALT (0-50) U/L Alkaline Phosphatase (38-126) U/L Serum Total Protein (6.3-8.2) g/dL Albumin (3.5-5.0) g/dL 07/08/23 07/08/23 07/08/23 Range/Units 05:25 05:25 05:25 WBC 9.1 (4.0-10.5) x10^3/uL RBC 4.83 (4.1-5.6) x10^6/uL Hgb 12.9 (12.5-18.0) g/dL Hct 42.6 (42-50) % MCV 88.2 (78-100) fL MCH 26.7 (26-32) pg MCHC 30.3 L (32-36) g/dL RDW 16.9 H (11.5-14.0) % Plt Count 252 (150-450) x10^3/uL MPV 9.8 (7.5-11.0) fL Gran % 71.8 H (36.0-66.0) % Immature Gran % (Auto) 0.4 (0.00-0.4) % Nucleat RBC Rel Count 0.0 (0.00-0.1) % Eos # (Auto) 0.19 (0-0.5) x10^3/uL Immature Gran # (Auto) 0.04 H (0.00-0.03) x10^3u/L Absolute Lymphs (auto) 1.30 (1.0-4.6) x10^3/uL Absolute Monos (auto) 0.98 (0.0-1.3) x10^3/uL Absolute Nucleated RBC 0.00 (0.00-0.01) x10^3u/L Lymphocytes % 14.3 L (24.0-44.0) % Monocytes % 10.8 (0.0-12.0) % Eosinophils % 2.1 (0.00-5.0) % Basophils % 0.6 (0.0-0.4) % Absolute Granulocytes 6.52 (1.4-6.9) x10^3/uL Basophils # 0.05 (0-0.4) x10^3/uL Sodium 138 (137-145) mmol/L Potassium 4.0 (3.5-5.1) mmol/L Chloride 103 (98-107) mmol/L Carbon Dioxide 30 (22-30) mmol/L Anion Gap 9.2 (5-15) MEQ/L BUN 17 (9-20) mg/dL Creatinine 1.24 (0.66-1.25) mg/dL Estimated GFR > 60.0 ML/MIN Glucose 86 (74-106) mg/dL POC Glucometer (74 to 106) mg/dL Hemoglobin A1c (4.5-6.0) % Calcium 8.1 L (8.4-10.2) mg/dL Magnesium 2.2 (1.6-2.3) mg/dL Total Bilirubin 1.70 H (0.2-1.3) mg/dL AST 26 (17-59) U/L ALT 30 (0-50) U/L Alkaline Phosphatase 127 H (38-126) U/L Serum Total Protein 6.4 (6.3-8.2) g/dL Albumin 3.3 L (3.5-5.0) g/dL 07/08/23 07/08/23 Range/Units 06:57 11:20 WBC (4.0-10.5) x10^3/uL RBC (4.1-5.6) x10^6/uL Hgb (12.5-18.0) g/dL Hct (42-50) % MCV (78-100) fL MCH (26-32) pg MCHC (32-36) g/dL RDW (11.5-14.0) % Plt Count (150-450) x10^3/uL MPV (7.5-11.0) fL Gran % (36.0-66.0) % Immature Gran % (Auto) (0.00-0.4) % Nucleat RBC Rel Count (0.00-0.1) % Eos # (Auto) (0-0.5) x10^3/uL Immature Gran # (Auto) (0.00-0.03) x10^3u/L Absolute Lymphs (auto) (1.0-4.6) x10^3/uL Absolute Monos (auto) (0.0-1.3) x10^3/uL Absolute Nucleated RBC (0.00-0.01) x10^3u/L Lymphocytes % (24.0-44.0) % Monocytes % (0.0-12.0) % Eosinophils % (0.00-5.0) % Basophils % (0.0-0.4) % Absolute Granulocytes (1.4-6.9) x10^3/uL Basophils # (0-0.4) x10^3/uL Sodium (137-145) mmol/L Potassium (3.5-5.1) mmol/L Chloride (98-107) mmol/L Carbon Dioxide (22-30) mmol/L Anion Gap (5-15) MEQ/L BUN (9-20) mg/dL Creatinine (0.66-1.25) mg/dL Estimated GFR ML/MIN Glucose (74-106) mg/dL POC Glucometer 116 H 138 H (74 to 106) mg/dL Hemoglobin A1c (4.5-6.0) % Calcium (8.4-10.2) mg/dL Magnesium (1.6-2.3) mg/dL Total Bilirubin (0.2-1.3) mg/dL AST (17-59) U/L ALT (0-50) U/L Alkaline Phosphatase (38-126) U/L Serum Total Protein (6.3-8.2) g/dL Albumin (3.5-5.0) g/dL Radiology Exams: Radiology Procedures Category Date Time Status ANKLE (3 VIEWS) Routine Exams 07/08/23 11:38 Taken VENOUS UNILAT/LIMITED EXTREMIT [US] Stat Exams 07/06/23 19:12 Completed Multi-Disciplinary Progress Notes: Multi-Disciplinary Progress Notes 07/08/23 10:00 Respiratory Note by Makayla Matthew On morning rounds this RT found pt to be wearing 2L oxygen. Pt states he does not wear oxygen at home or wear bipap/cpap at night. Unsure why pt was placed on oxygen. Room air sat 91%. Initialized on 07/08/23 10:00 - END OF NOTE <MICHAEL MANJARREZ - Last Filed: 07/08/23 13:18> Assessment/Plan (1) Cellulitis of left lower extremity Current Visit: Yes Status: Acute Assessment & Plan: - Zosyn/ vancomycin - BC cultures negative X2 - US doppler negative for DVT - Lasix BID - IV fluids stopped - Pain control with tylenol and morphine - Elevation of leg - Wound Care - PT Code(s): L03.116 - CELLULITIS OF LEFT LOWER LIMB (2) Type I diabetes mellitus Current Visit: Yes Status: Acute Assessment & Plan: - A1C 8.33 - Lantus, Humalog - Controlled (3) Hypertension Current Visit: Yes Status: Acute Assessment & Plan: - Controlled - Continue Lisinopril Code(s): I10 - ESSENTIAL (PRIMARY) HYPERTENSION (4) Peripheral vascular disease Current Visit: Yes Status: Acute Assessment & Plan: - Chronic Code(s): I73.9 - PERIPHERAL VASCULAR DISEASE, UNSPECIFIED (5) Obesity Current Visit: Yes Status: Acute Assessment & Plan: - Discussed diet and exercise management Code(s): E66.9 - OBESITY, UNSPECIFIED (6) Left ankle pain Current Visit: Yes Status: Acute Qualifiers: Chronicity: acute Qualified Code(s): M25.572 - Pain in left ankle and joints of left foot Assessment & Plan: - XR left ankle- pending Code(s): M25.572 - PAIN IN LEFT ANKLE AND JOINTS OF LEFT FOOT (7) Oxygen desaturation during sleep Current Visit: Yes Status: Acute Assessment & Plan: -O2 dropped at night into 80's and 2LNC placed to keep O2 >92% - Baseline RA - Will need sleep study at d/c as may have sleep apnea Code(s): G47.34 - IDIO SLEEP RELATED NONOBSTRUCTIVE ALVEOLAR HYPOVENTILATION (8) Depression Current Visit: Yes Status: Acute Assessment & Plan: - continue Celexa D/C plan 1-2 days VTE: Lovenox Next of KIN: Joon Grace, Code(s): F32.A - DEPRESSION, UNSPECIFIED <KAMERON CARTAGENA - Last Filed: 07/08/23 11:37> HORTENCIA Encounter - HORTENCIA Encounter Attestation HORTENCIA Encounter Attestation: IhavepersonallyseenandexCarole,ARDEN MCKEE andhavediscussed pertinent aspects of their care with Kameron Cartagena,and agree with the history, physical exam (any modifications based on my personal exam will be noted below), assessment, and plan as outlined in original note. Please see immediately below for my summary of findings and additional assessment and plan along with any meaningful corrections/explanations to the Subjective/Objective portions of the HORTENCIA note will be noted. 52 y/o M, here with LLE cellulitis. Erythema starting to improve on empiric Vanc/Zosyn, but leg edema worse. Stopped IV fluids, and increased Lasix dosing. Worse L ankle pain, and unable to walk on foot; will obtain ankle X-ray to ensure no other damage. My portion of the encounter took place via telemedicine. <MICHAEL MANJARREZ - Last Filed: 07/08/23 13:18>
[2023-07-08] MEDS: HUMALOG SQ SCH ×3 (08:16→17:13)
[2023-07-08] MEDS: Lantus Insulin SQ SCH ×2 (08:17→21:30)
[2023-07-08] MEDS: Zestril 20 MG PO SCH (08:18)
[2023-07-08] MEDS: ceLEXa 20 MG PO SCH (08:18)
[2023-07-08] MEDS: LASIX 20 MG PO SCH (08:18)
[2023-07-08] MEDS: Ecotrin 325 MG PO SCH (08:18)
[2023-07-08] MEDS: ENOXAPARIN SODIUM SQ SCH (08:18)
[2023-07-08] MEDS: MORPHINE SULFATE 2 MG INJ IV PRN (08:19)
[2023-07-08] MEDS ORDERED: ceLEXa 20 MG PO SCH (10:00)
[2023-07-08] MEDS ORDERED: Zestril 20 MG PO SCH (10:00)
[2023-07-08] MEDS ORDERED: NON-FORMULARY ITEM (Insulin Glargine,Hum.Rec.Anlog [Basaglar Kwikpen U-100] 100 UNIT/ML In SQ SCH (10:00)
[2023-07-08] MEDS: TYLENOL 325 MG PO PRN ×2 (10:27→16:02)
[2023-07-08] MEDS ORDERED: LASIX 20 MG PO ONE (10:29)
--- NOTE | 2023-07-08 20:50 | XRAY ---
Indication: Swelling following fall. Comparison: None 3 view left ankle demonstrates diffuse soft tissue swelling/edema, moderate scattered vascular calcifications, and tiny lower leg subcutaneous calcifications. No other bony, articular, or soft tissue abnormalities.
[2023-07-08] MEDS: Lasix 40 MG PO SCH (21:30)
[2023-07-09] MEDS ORDERED: TROUGH DRUG LEVELS IJ ONE (01:30)
[2023-07-09 01:54] LABS: Absolute Neutrophil Ct (ANC) 6.83 x10^3/uL (1.4-6.9); BASOPHIL % 0.4 % (0.0-0.4); Basophil (Absolute #) 0.04 x10^3/uL (0-0.4); Eosinophil % 2.2 % (0.00-5.0); Hematocrit 41.6 % (42-50); Hemoglobin 12.7 g/dL (12.5-18.0); IMMATURE GRAN # 0.03 x10^3u/L (0.00-0.03); IMMATURE GRAN % 0.3 % (0.00-0.4); Lymphocyte (Absolute #) 1.08 x10^3/uL (1.0-4.6); Lymphocytes % 11.8 % (24.0-44.0); Mean Cell Volume 88.3 fL (78-100); Mean Corpuscular Hgb Concent. 30.5 g/dL (32-36); Mean Platelet Volume 9.7 fL (7.5-11.0); Monocyte (Absolute #) 0.94 x10^3/uL (0.0-1.3); Monocytes % 10.3 % (0.0-12.0); Platelet Count 255 x10^3/uL (150-450); Red Blood Count 4.71 x10^6/uL (4.1-5.6); Red Cell Distribution Width 16.8 % (11.5-14.0); White Blood Count 9.1 x10^3/uL (4.0-10.5)
[2023-07-09 02:09] LABS: ALBUMIN 3.3 g/dL (3.5-5.0); ALKALINE PHOSPHATASE 126 U/L (38-126); ANION GAP 7.8 MEQ/L (5-15); BLOOD UREA NITROGEN 17 mg/dL (9-20); CHLORIDE 104 mmol/L (98-107); Calcium 8.1 mg/dL (8.4-10.2); Carbon Dioxide 32 mmol/L (22-30); Creatinine 1 1.19 mg/dL (0.66-1.25); EST GLOMERULAR FILTRATION RATE > 60.0 ML/MIN; Glucose 84 mg/dL (74-106); Potassium 3.8 mmol/L (3.5-5.1); SGOT/AST 27 U/L (17-59); SGPT/ALT 28 U/L (0-50); SODIUM 140 mmol/L (137-145); Total Protein 6.4 g/dL (6.3-8.2)
[2023-07-09] MEDS: VANCOMYCIN 2 GRAM/400 ML BAG 2 GM/400 ML PIGGYBACK IV SCH ×2 (02:17→13:37)
[2023-07-09] MEDS: PIPERACILLIN/TAZOBACTAM 4.5 GM in Sodium Chloride 100ML MINI-BAG PLUS 100 ML IV SCH ×3 (05:22→21:20)
[2023-07-09] MEDS: ENOXAPARIN SODIUM SQ SCH (08:40)
[2023-07-09] MEDS: Ecotrin 325 MG PO SCH (08:40)
[2023-07-09] MEDS: HUMALOG SQ SCH ×3 (08:41→16:28)
[2023-07-09] MEDS: ceLEXa 20 MG PO SCH (08:41)
[2023-07-09] MEDS: Zestril 20 MG PO SCH (08:41)
[2023-07-09] MEDS: LASIX 20 MG PO SCH (08:41)
[2023-07-09] MEDS: Lantus Insulin SQ SCH ×2 (08:42→21:29)
[2023-07-09] MEDS ORDERED: LASIX 20 MG PO ONE (10:09)
--- NOTE | 2023-07-09 12:53 | PCM.NOTE ---
Date and Time: 07/09/23 1246 Subjective Assessment: Mr. Haddad is a 52 year-old male with DM1, HTN, and PVD who presented with cellulitis. 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 He presented 07/07/23 with worsening pain, redness, and swelling to his left lower extremity. Doppler US obtained and was negative. Yesterday his left ankle was swollen and XR ordered. XR was negative. He continues to c/o increased pain and reports unable to place weight or walk on affected leg. Erythema and edema have improved. He was able to get up and sit in a chair today with the assist of 2 staff. Per staff he cursed at them and was verbally abusive. Discussed this with pt and why this happned and asked that he not do this again. He apologized and explained she would apologize to the staff. He explained he had increased pain when getting up. Plan is for PT to work with pt tomorrow and assess needs. he may need a walker and ankle brace. He denies further c/o at this time. - Review of Systems Constitutional: No Fever, No Chills Eyes: No Symptoms Ears, Nose, & Throat: No Symptoms Respiratory: No Cough, No Short Of Breath Cardiac: No Chest Pain, No Edema, No Syncope Abdominal/Gastrointestinal: No Abdominal Pain, No Nausea, No Vomiting, No Diarrhea Genitourinary Symptoms: No Dysuria Musculoskeletal: No Back Pain, No Neck Pain Skin: Cellulitis (LLE), No Rash Neurological: No Dizziness, No Focal Weakness, No Sensory Changes Psychological: No Symptoms, Mood Changes, Other (irritable) Endocrine: No Symptoms Hematologic/Lymphatic: No Symptoms Immunological/Allergic: No Symptoms Objective Exam General Appearance: no apparent distress, alert Neurologic Exam: alert, oriented x 3, cooperative, normal mood/affect, nml cerebellar function, sensation nml, No motor deficits Skin Exam: warm, dry, other (erythema and edema + 3 pitting edema) Eye Exam: PERRL, EOMI, eyes nml inspection Ears, Nose, Throat Exam: normal ENT inspection, pharynx normal, moist mucous membranes Neck Exam: normal inspection, non-tender, supple, full range of motion Respiratory Exam: normal breath sounds, lungs clear, No respiratory distress Cardiovascular Exam: regular rate/rhythm, normal heart sounds Gastrointestinal/Abdomen Exam: soft, No tenderness, No mass Extremity Exam: normal inspection, normal range of motion, limited range of motion (LLE), tenderness (LLE) Back Exam: normal inspection, normal range of motion, No CVA tenderness, No vertebral tenderness Male Genitalia Exam: deferred Rectal Exam: deferred OBJECTIVE DATA Vital Signs: Vital Signs - 24 hr Temp Pulse Resp BP Pulse Ox 07/09/23 12:00 97.7 F 108 H 16 158/74 95 07/09/23 07:52 97 07/09/23 07:29 97.6 F 96 H 16 126/71 95 07/09/23 03:37 97.5 F 62 18 134/64 96 07/08/23 23:43 97.9 F 98 H 20 137/74 98 07/08/23 20:45 95 07/08/23 19:49 97.8 F 103 H 20 128/60 95 07/08/23 16:00 97.0 F 61 17 142/80 97 Pain Assessment - Last Documented Pain Intensity 8 Pain Scale Used 0-10 Pain Scale Intake and Output: Intake & Output 07/07/23 07/08/23 07/09/23 07/10/23 11:59 11:59 11:59 11:59 Intake Total 1707 2768 610 Output Total 1150 1700 Balance 1707 1618 -1090 Weight 161.5 kg Lab Results: Lab Results-Last 24 Hours 07/08/23 07/08/23 07/09/23 Range/Units 16:39 20:37 01:49 WBC (4.0-10.5) x10^3/uL RBC (4.1-5.6) x10^6/uL Hgb (12.5-18.0) g/dL Hct (42-50) % MCV (78-100) fL MCH (26-32) pg MCHC (32-36) g/dL RDW (11.5-14.0) % Plt Count (150-450) x10^3/uL MPV (7.5-11.0) fL Gran % (36.0-66.0) % Immature Gran % (Auto) (0.00-0.4) % Nucleat RBC Rel Count (0.00-0.1) % Eos # (Auto) (0-0.5) x10^3/uL Immature Gran # (Auto) (0.00-0.03) x10^3u/L Absolute Lymphs (auto) (1.0-4.6) x10^3/uL Absolute Monos (auto) (0.0-1.3) x10^3/uL Absolute Nucleated RBC (0.00-0.01) x10^3u/L Lymphocytes % (24.0-44.0) % Monocytes % (0.0-12.0) % Eosinophils % (0.00-5.0) % Basophils % (0.0-0.4) % Absolute Granulocytes (1.4-6.9) x10^3/uL Basophils # (0-0.4) x10^3/uL Sodium (137-145) mmol/L Potassium (3.5-5.1) mmol/L Chloride (98-107) mmol/L Carbon Dioxide (22-30) mmol/L Anion Gap (5-15) MEQ/L BUN (9-20) mg/dL Creatinine (0.66-1.25) mg/dL Estimated GFR ML/MIN Glucose (74-106) mg/dL POC Glucometer 212 H 189 H (74 to 106) mg/dL Calcium (8.4-10.2) mg/dL Magnesium (1.6-2.3) mg/dL Total Bilirubin (0.2-1.3) mg/dL AST (17-59) U/L ALT (0-50) U/L Alkaline Phosphatase (38-126) U/L Serum Total Protein (6.3-8.2) g/dL Albumin (3.5-5.0) g/dL Vancomycin Trough 13.73 (10-20) ug/mL 07/09/23 07/09/23 07/09/23 Range/Units 01:51 01:51 01:51 WBC 9.1 (4.0-10.5) x10^3/uL RBC 4.71 (4.1-5.6) x10^6/uL Hgb 12.7 (12.5-18.0) g/dL Hct 41.6 L (42-50) % MCV 88.3 (78-100) fL MCH 27.0 (26-32) pg MCHC 30.5 L (32-36) g/dL RDW 16.8 H (11.5-14.0) % Plt Count 255 (150-450) x10^3/uL MPV 9.7 (7.5-11.0) fL Gran % 75.0 H (36.0-66.0) % Immature Gran % (Auto) 0.3 (0.00-0.4) % Nucleat RBC Rel Count 0.0 (0.00-0.1) % Eos # (Auto) 0.20 (0-0.5) x10^3/uL Immature Gran # (Auto) 0.03 (0.00-0.03) x10^3u/L Absolute Lymphs (auto) 1.08 (1.0-4.6) x10^3/uL Absolute Monos (auto) 0.94 (0.0-1.3) x10^3/uL Absolute Nucleated RBC 0.00 (0.00-0.01) x10^3u/L Lymphocytes % 11.8 L (24.0-44.0) % Monocytes % 10.3 (0.0-12.0) % Eosinophils % 2.2 (0.00-5.0) % Basophils % 0.4 (0.0-0.4) % Absolute Granulocytes 6.83 (1.4-6.9) x10^3/uL Basophils # 0.04 (0-0.4) x10^3/uL Sodium 140 (137-145) mmol/L Potassium 3.8 (3.5-5.1) mmol/L Chloride 104 (98-107) mmol/L Carbon Dioxide 32 H (22-30) mmol/L Anion Gap 7.8 (5-15) MEQ/L BUN 17 (9-20) mg/dL Creatinine 1.19 (0.66-1.25) mg/dL Estimated GFR > 60.0 ML/MIN Glucose 84 (74-106) mg/dL POC Glucometer (74 to 106) mg/dL Calcium 8.1 L (8.4-10.2) mg/dL Magnesium 2.1 (1.6-2.3) mg/dL Total Bilirubin 1.50 H (0.2-1.3) mg/dL AST 27 (17-59) U/L ALT 28 (0-50) U/L Alkaline Phosphatase 126 (38-126) U/L Serum Total Protein 6.4 (6.3-8.2) g/dL Albumin 3.3 L (3.5-5.0) g/dL Vancomycin Trough (10-20) ug/mL 07/09/23 07/09/23 07/09/23 Range/Units 07:14 08:30 10:44 WBC (4.0-10.5) x10^3/uL RBC (4.1-5.6) x10^6/uL Hgb (12.5-18.0) g/dL Hct (42-50) % MCV (78-100) fL MCH (26-32) pg MCHC (32-36) g/dL RDW (11.5-14.0) % Plt Count (150-450) x10^3/uL MPV (7.5-11.0) fL Gran % (36.0-66.0) % Immature Gran % (Auto) (0.00-0.4) % Nucleat RBC Rel Count (0.00-0.1) % Eos # (Auto) (0-0.5) x10^3/uL Immature Gran # (Auto) (0.00-0.03) x10^3u/L Absolute Lymphs (auto) (1.0-4.6) x10^3/uL Absolute Monos (auto) (0.0-1.3) x10^3/uL Absolute Nucleated RBC (0.00-0.01) x10^3u/L Lymphocytes % (24.0-44.0) % Monocytes % (0.0-12.0) % Eosinophils % (0.00-5.0) % Basophils % (0.0-0.4) % Absolute Granulocytes (1.4-6.9) x10^3/uL Basophils # (0-0.4) x10^3/uL Sodium (137-145) mmol/L Potassium (3.5-5.1) mmol/L Chloride (98-107) mmol/L Carbon Dioxide (22-30) mmol/L Anion Gap (5-15) MEQ/L BUN (9-20) mg/dL Creatinine (0.66-1.25) mg/dL Estimated GFR ML/MIN Glucose (74-106) mg/dL POC Glucometer 57 L 96 179 H (74 to 106) mg/dL Calcium (8.4-10.2) mg/dL Magnesium (1.6-2.3) mg/dL Total Bilirubin (0.2-1.3) mg/dL AST (17-59) U/L ALT (0-50) U/L Alkaline Phosphatase (38-126) U/L Serum Total Protein (6.3-8.2) g/dL Albumin (3.5-5.0) g/dL Vancomycin Trough (10-20) ug/mL Radiology Exams: Radiology Procedures Category Date Time Status ANKLE (3 VIEWS) Routine Exams 07/08/23 11:38 Completed Assessment/Plan (1) Cellulitis of left lower extremity Current Visit: Yes Status: Acute Assessment & Plan: - Zosyn/ vancomycin - BC cultures negative X2 - US doppler negative for DVT - Lasix BID - IV fluids stopped - Pain control with tylenol and morphine - Elevation of leg - Wound Care - PT - May need home walker and ankle brace Code(s): L03.116 - CELLULITIS OF LEFT LOWER LIMB (2) Type I diabetes mellitus Current Visit: Yes Status: Acute Assessment & Plan: - A1C 8.33 - Lantus, Humalog - Controlled (3) Hypertension Current Visit: Yes Status: Acute Assessment & Plan: - Controlled - Continue Lisinopril Code(s): I10 - ESSENTIAL (PRIMARY) HYPERTENSION (4) Peripheral vascular disease Current Visit: Yes Status: Acute Assessment & Plan: - Chronic Code(s): I73.9 - PERIPHERAL VASCULAR DISEASE, UNSPECIFIED (5) Obesity Current Visit: Yes Status: Acute Assessment & Plan: Discussed diet and exercise management Code(s): E66.9 - OBESITY, UNSPECIFIED (6) Left ankle pain Current Visit: Yes Status: Acute Qualifiers: Chronicity: acute Qualified Code(s): M25.572 - Pain in left ankle and joints of left foot Assessment & Plan: - XR left ankle- 07/08 3 view left ankle demonstrates diffuse soft tissue swelling/edema, moderate scattered vascular calcifications, and tiny lower leg subcutaneous calcifications. No other bony, articular, or soft tissue abnormalities. Code(s): M25.572 - PAIN IN LEFT ANKLE AND JOINTS OF LEFT FOOT (7) Oxygen desaturation during sleep Current Visit: Yes Status: Acute Assessment & Plan: -O2 dropped at night into 80's and 2LNC placed to keep O2 >92% - Baseline RA - Will need sleep study at d/c as may have sleep apnea Code(s): G47.34 - IDIO SLEEP RELATED NONOBSTRUCTIVE ALVEOLAR HYPOVENTILATION (8) Depression Current Visit: Yes Status: Acute Assessment & Plan: - continue Celexa D/C plan 1-2 days VTE: Lovenox Next of KIN: Joon Grace, Code(s): F32.A - DEPRESSION, UNSPECIFIED
[2023-07-09] MEDS: Lasix 40 MG PO SCH (19:25)
[2023-07-10] MEDS: VANCOMYCIN 2 GRAM/400 ML BAG 2 GM/400 ML PIGGYBACK IV SCH ×2 (01:47→13:37)
[2023-07-10 04:44] LABS: Hematocrit 41.6 % (42-50); Hemoglobin 12.8 g/dL (12.5-18.0); Mean Cell Volume 86.7 fL (78-100); Mean Corpuscular Hemoglobin 26.7 pg (26-32); Mean Corpuscular Hgb Concent. 30.8 g/dL (32-36); Mean Platelet Volume 9.1 fL (7.5-11.0); Platelet Count 253 x10^3/uL (150-450); Red Cell Distribution Width 16.9 % (11.5-14.0); White Blood Count 9.2 x10^3/uL (4.0-10.5)
[2023-07-10] MEDS: PIPERACILLIN/TAZOBACTAM 4.5 GM in Sodium Chloride 100ML MINI-BAG PLUS 100 ML IV SCH ×3 (04:56→21:23)
[2023-07-10 05:14] LABS: ALBUMIN 3.3 g/dL (3.5-5.0); ALKALINE PHOSPHATASE 126 U/L (38-126); ANION GAP 7.4 MEQ/L (5-15); BLOOD UREA NITROGEN 16 mg/dL (9-20); CHLORIDE 103 mmol/L (98-107); Calcium 8.2 mg/dL (8.4-10.2); Carbon Dioxide 32 mmol/L (22-30); Creatinine 1 1.01 mg/dL (0.66-1.25); EST GLOMERULAR FILTRATION RATE > 60.0 ML/MIN; Glucose 113 mg/dL (74-106); Potassium 3.7 mmol/L (3.5-5.1); SGOT/AST 29 U/L (17-59); SGPT/ALT 27 U/L (0-50); SODIUM 138 mmol/L (137-145); Total Protein 6.4 g/dL (6.3-8.2)
[2023-07-10] MEDS: HUMALOG SQ SCH ×3 (08:42→16:51)
[2023-07-10] MEDS: Lantus Insulin SQ SCH ×2 (08:44→21:20)
[2023-07-10] MEDS: Klor Con PO SCH (08:46)
[2023-07-10] MEDS: Zestril 20 MG PO SCH (08:46)
[2023-07-10] MEDS: ENOXAPARIN SODIUM SQ SCH (08:46)
[2023-07-10] MEDS: ceLEXa 20 MG PO SCH (08:47)
[2023-07-10] MEDS: LASIX 20 MG PO SCH (08:47)
[2023-07-10] MEDS: Ecotrin 325 MG PO SCH (08:47)
[2023-07-10] MEDS: TYLENOL 325 MG PO PRN (08:52)
[2023-07-10] MEDS: NORCO 5/325 MG PO PRN (12:31)
[2023-07-10] MEDS: Acidophilus TABLET PO SCH (12:32)
--- NOTE | 2023-07-10 14:46 | PCM.NOTE ---
Date and Time: 07/10/23 1577 Subjective Assessment: Mr. Haddad is a 52 year-old male with DM1, HTN, and PVD who presented with cellulitis. 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 He presented 07/07/23 with worsening pain, redness, and swelling to his left lower extremity. Doppler US obtained and was negative. Yesterday his left ankle was swollen and XR ordered. XR was negative. He continues to c/o increased pain and reports unable to place weight or walk on affected leg. Erythema and edema have improved. Currently being treated with Vanc/Zosyn. Patient refusing PT due to pain, discussed importance of ambulation, patient agreeable to try to work with PT, CM working on SNF placement. Will start on oral Vantin/doxy combo with close follow up op with Dr. Campbell (ID). - Review of Systems Constitutional: No Symptoms Eyes: No Symptoms Ears, Nose, & Throat: No Symptoms Respiratory: No Symptoms Cardiac: Edema (BLE edema, LLE cellulitis (boders marked)) Abdominal/Gastrointestinal: No Symptoms Genitourinary Symptoms: No Symptoms Skin: Cellulitis Neurological: No Symptoms Psychological: No Symptoms Objective Exam General Appearance: no apparent distress Neurologic Exam: alert, oriented x 3, cooperative Skin Exam: other (BLE edema L>R) Eye Exam: PERRL Respiratory Exam: normal breath sounds Cardiovascular Exam: regular rate/rhythm Gastrointestinal/Abdomen Exam: soft OBJECTIVE DATA Vital Signs: Vital Signs - 24 hr Temp Pulse Resp BP Pulse Ox 07/10/23 11:34 97.5 F 106 H 20 138/82 95 07/10/23 07:33 94 L 07/10/23 07:09 97.1 F 104 H 20 131/84 94 L 07/10/23 04:00 97.3 F 102 H 20 138/86 94 L 07/10/23 00:00 97.9 F 102 H 20 132/75 94 L 07/09/23 19:46 99.2 F 112 H 19 133/75 97 07/09/23 19:15 97 07/09/23 16:00 97.6 F 105 H 16 125/71 93 L Pain Assessment - Last Documented Pain Intensity 10 Pain Scale Used 0-10 Pain Scale Intake and Output: Intake & Output 07/08/23 07/09/23 07/10/23 07/11/23 11:59 11:59 11:59 11:59 Intake Total 2768 610 240 360 Output Total 1150 1700 600 650 Balance 1618 -1090 -360 -290 Lab Results: Lab Results-Last 24 Hours 07/09/23 07/09/23 07/10/23 Range/Units 16:07 20:41 04:32 WBC (4.0-10.5) x10^3/uL RBC (4.1-5.6) x10^6/uL Hgb (12.5-18.0) g/dL Hct (42-50) % MCV (78-100) fL MCH (26-32) pg MCHC (32-36) g/dL RDW (11.5-14.0) % Plt Count (150-450) x10^3/uL MPV (7.5-11.0) fL Sodium 138 (137-145) mmol/L Potassium 3.7 (3.5-5.1) mmol/L Chloride 103 (98-107) mmol/L Carbon Dioxide 32 H (22-30) mmol/L Anion Gap 7.4 (5-15) MEQ/L BUN 16 (9-20) mg/dL Creatinine 1.01 (0.66-1.25) mg/dL Estimated GFR > 60.0 ML/MIN Glucose 113 H (74-106) mg/dL POC Glucometer 153 H 159 H (74 to 106) mg/dL Calcium 8.2 L (8.4-10.2) mg/dL Magnesium (1.6-2.3) mg/dL Total Bilirubin 2.30 H (0.2-1.3) mg/dL AST 29 (17-59) U/L ALT 27 (0-50) U/L Alkaline Phosphatase 126 (38-126) U/L Serum Total Protein 6.4 (6.3-8.2) g/dL Albumin 3.3 L (3.5-5.0) g/dL 07/10/23 07/10/23 07/10/23 Range/Units 04:32 04:32 06:27 WBC 9.2 (4.0-10.5) x10^3/uL RBC 4.80 (4.1-5.6) x10^6/uL Hgb 12.8 (12.5-18.0) g/dL Hct 41.6 L (42-50) % MCV 86.7 (78-100) fL MCH 26.7 (26-32) pg MCHC 30.8 L (32-36) g/dL RDW 16.9 H (11.5-14.0) % Plt Count 253 (150-450) x10^3/uL MPV 9.1 (7.5-11.0) fL Sodium (137-145) mmol/L Potassium (3.5-5.1) mmol/L Chloride (98-107) mmol/L Carbon Dioxide (22-30) mmol/L Anion Gap (5-15) MEQ/L BUN (9-20) mg/dL Creatinine (0.66-1.25) mg/dL Estimated GFR ML/MIN Glucose (74-106) mg/dL POC Glucometer 112 H (74 to 106) mg/dL Calcium (8.4-10.2) mg/dL Magnesium 2.1 (1.6-2.3) mg/dL Total Bilirubin (0.2-1.3) mg/dL AST (17-59) U/L ALT (0-50) U/L Alkaline Phosphatase (38-126) U/L Serum Total Protein (6.3-8.2) g/dL Albumin (3.5-5.0) g/dL 07/10/23 Range/Units 10:50 WBC (4.0-10.5) x10^3/uL RBC (4.1-5.6) x10^6/uL Hgb (12.5-18.0) g/dL Hct (42-50) % MCV (78-100) fL MCH (26-32) pg MCHC (32-36) g/dL RDW (11.5-14.0) % Plt Count (150-450) x10^3/uL MPV (7.5-11.0) fL Sodium (137-145) mmol/L Potassium (3.5-5.1) mmol/L Chloride (98-107) mmol/L Carbon Dioxide (22-30) mmol/L Anion Gap (5-15) MEQ/L BUN (9-20) mg/dL Creatinine (0.66-1.25) mg/dL Estimated GFR ML/MIN Glucose (74-106) mg/dL POC Glucometer 168 H (74 to 106) mg/dL Calcium (8.4-10.2) mg/dL Magnesium (1.6-2.3) mg/dL Total Bilirubin (0.2-1.3) mg/dL AST (17-59) U/L ALT (0-50) U/L Alkaline Phosphatase (38-126) U/L Serum Total Protein (6.3-8.2) g/dL Albumin (3.5-5.0) g/dL Radiology Exams: Radiology Procedures Category Date Time Status CHEST 1 VIEW (PORTABLE) Urgent Exams 07/10/23 14:05 Taken Multi-Disciplinary Progress Notes: Multi-Disciplinary Progress Notes 07/10/23 11:23 Physical Therapy Note by Marylu(Georgette#[id number])Heavenly ATTEMPTED P.T. EVAL THIS A.M. AND PT. NOT ABLE TO TRANSFER SUPINE TO SIT D/T C/O INCREASED L LL PN TO 8/10 W/ HANGING IN DEPENDENT POSITION. RN TO CHECK W/ DRKate ON DIFFERENT PN MED SO THAT PT. IS ABLE TO TOLERATE MOBILITY BETTER. WILL ATTEMPT AGAIN THIS AFTERNOON. Initialized on 07/10/23 11:23 - END OF NOTE Assessment/Plan (1) Cellulitis of left lower extremity Current Visit: Yes Status: Acute Assessment & Plan: - Zosyn/ vancomycin currently, will change to vantin/doxy for 7 days, spoke with Dr. Campbell, appt made for 7 days for follow up - BC cultures negative X2 - US doppler negative for DVT - Lasix BID - IV fluids stopped - Pain control with tylenol and morphine - Elevation of leg - Wound Care - PT/CM working on discharge to SNF - May need home walker and ankle brace Code(s): L03.116 - CELLULITIS OF LEFT LOWER LIMB (2) Depression Current Visit: Yes Status: Acute Assessment & Plan: - continue Celexa Code(s): F32.A - DEPRESSION, UNSPECIFIED (3) Hypertension Current Visit: Yes Status: Acute Assessment & Plan: - Controlled - Continue Lisinopril Code(s): I10 - ESSENTIAL (PRIMARY) HYPERTENSION (4) Left ankle pain Current Visit: Yes Status: Acute Qualifiers: Chronicity: acute Qualified Code(s): M25.572 - Pain in left ankle and joints of left foot Assessment & Plan: - XR left ankle- 07/08 3 view left ankle demonstrates diffuse soft tissue swelling/edema, moderate scattered vascular calcifications, and tiny lower leg subcutaneous calcifications. No other bony, articular, or soft tissue abnormalities. Code(s): M25.572 - PAIN IN LEFT ANKLE AND JOINTS OF LEFT FOOT (5) Obesity Current Visit: Yes Status: Acute Assessment & Plan: iscussed diet and exercise management Code(s): E66.9 - OBESITY, UNSPECIFIED (6) Oxygen desaturation during sleep Current Visit: Yes Status: Acute Assessment & Plan: -O2 dropped at night into 80's and 2LNC placed to keep O2 >92% - Baseline RA - Will need sleep study at d/c as may have sleep apnea Code(s): G47.34 - IDIO SLEEP RELATED NONOBSTRUCTIVE ALVEOLAR HYPOVENTILATION (7) Peripheral vascular disease Current Visit: Yes Status: Acute Assessment & Plan: - Chronic Code(s): I73.9 - PERIPHERAL VASCULAR DISEASE, UNSPECIFIED (8) Type I diabetes mellitus Current Visit: Yes Status: Acute Assessment & Plan: - A1C 8.33 - Lantus, Humalog - Controlled D/C plan 1-2 days to ?SNF VTE: Lovenox Next of KIN: Joon Grace,
--- NOTE | 2023-07-10 14:53 | XRAY ---
Indication: long-term placement. Comparison: February 10, 2012 Portable chest demonstrates new mild right infrahilar patchy airspace disease without large effusion. Remaining lungs clear. Heart now borderline enlarged. Bony thorax intact.
[2023-07-10] MEDS: Lasix 40 MG PO SCH (21:24)
[2023-07-11] MEDS ORDERED: TROUGH DRUG LEVELS IJ ONE (01:30)
[2023-07-11 02:11] LABS: Absolute Neutrophil Ct (ANC) 6.67 x10^3/uL (1.4-6.9); BASOPHIL % 0.6 % (0.0-0.4); Basophil (Absolute #) 0.06 x10^3/uL (0-0.4); Eosinophil % 4.6 % (0.00-5.0); Eosinophil (Absolute #) 0.43 x10^3/uL (0-0.5); Hematocrit 42.5 % (42-50); Hemoglobin 12.8 g/dL (12.5-18.0); IMMATURE GRAN # 0.03 x10^3u/L (0.00-0.03); IMMATURE GRAN % 0.3 % (0.00-0.4); Lymphocyte (Absolute #) 1.14 x10^3/uL (1.0-4.6); Lymphocytes % 12.3 % (24.0-44.0); Mean Cell Volume 87.3 fL (78-100); Mean Corpuscular Hemoglobin 26.3 pg (26-32); Mean Corpuscular Hgb Concent. 30.1 g/dL (32-36); Mean Platelet Volume 9.8 fL (7.5-11.0); Monocyte (Absolute #) 0.97 x10^3/uL (0.0-1.3); Monocytes % 10.4 % (0.0-12.0); Neutrophil % 71.8 % (36.0-66.0); Platelet Count 275 x10^3/uL (150-450); Red Blood Count 4.87 x10^6/uL (4.1-5.6); Red Cell Distribution Width 16.8 % (11.5-14.0); White Blood Count 9.3 x10^3/uL (4.0-10.5)
[2023-07-11] MEDS: VANCOMYCIN 2 GRAM/400 ML BAG 2 GM/400 ML PIGGYBACK IV SCH (02:19)
[2023-07-11 02:57] LABS: ALBUMIN 3.5 g/dL (3.5-5.0); ALKALINE PHOSPHATASE 145 U/L (38-126); ANION GAP 11.2 MEQ/L (5-15); BLOOD UREA NITROGEN 20 mg/dL (9-20); CHLORIDE 103 mmol/L (98-107); Calcium 8.5 mg/dL (8.4-10.2); Carbon Dioxide 29 mmol/L (22-30); Creatinine 1 1.06 mg/dL (0.66-1.25); EST GLOMERULAR FILTRATION RATE > 60.0 ML/MIN; Glucose 197 mg/dL (74-106); MAGNESIUM 2.1 mg/dL (1.6-2.3); Potassium 4.3 mmol/L (3.5-5.1); SGOT/AST 28 U/L (17-59); SGPT/ALT 28 U/L (0-50); SODIUM 138 mmol/L (137-145); Total Protein 6.8 g/dL (6.3-8.2)
[2023-07-11] MEDS: PIPERACILLIN/TAZOBACTAM 4.5 GM in Sodium Chloride 100ML MINI-BAG PLUS 100 ML IV SCH (05:15)
[2023-07-11] MEDS: ENOXAPARIN SODIUM SQ SCH (08:58)
[2023-07-11] MEDS: HUMALOG SQ SCH ×3 (08:59→17:01)
[2023-07-11] MEDS: Lantus Insulin SQ SCH ×2 (08:59→22:49)
[2023-07-11] MEDS: ceLEXa 20 MG PO SCH (08:59)
[2023-07-11] MEDS: Klor Con PO SCH (09:00)
[2023-07-11] MEDS: Acidophilus TABLET PO SCH (09:00)
[2023-07-11] MEDS: Zestril 20 MG PO SCH (09:00)
[2023-07-11] MEDS: Ecotrin 325 MG PO SCH (09:00)
[2023-07-11] MEDS: LASIX 20 MG PO SCH (09:01)
[2023-07-11] MEDS: NON-FORMULARY ITEM PO SCH ×2 (09:01→22:22)
[2023-07-11] MEDS: Vibramycin 100 MG PO SCH ×3 (09:01→22:21)
[2023-07-11] MEDS: NEURONTIN PO SCH ×2 (09:43→22:21)
[2023-07-11] MEDS ORDERED: NON-FORMULARY BULK ITEM PO SCH (10:00)
[2023-07-11] MEDS ORDERED: NEURONTIN PO SCH (10:00)
[2023-07-11] MEDS: TYLENOL 325 MG PO PRN (11:27)
--- NOTE | 2023-07-11 11:40 | PCM.NOTE ---
Date and Time: 07/11/23 6123 Subjective Assessment: Mr. Haddad is a 52 year-old male with DM1, HTN, and PVD who presented with cellulitis. He admits to hitting his left knee on some gravel while playing touch football [employer], he has had subsequent pain, redness, and swelling of LLE and he pursued medical care with his PCP - he was prescribed outpatient levaqui n. He presented 07/07/23 with worsening pain, redness, and swelling to his left lower extremity. Doppler US obtained and was negative. Yesterday his left ankle was swollen and XR ordered. XR was negative. He continues to c/o increased pain and reports unable to place weight or walk on affected leg. Erythema and edema have improved, receding from the marked borders. During hospital course, has rec eived Vanc/Zosyn, currently on oral Vantin/Doxy combo for the next 7 days. Patient pending SNF placement for rehab, will follow up OP with ID once abx complete. Endorses continued pain today with difficulty ambulating due to pain. States he is "at 60% of normal functioning" and would like rehab to get closer to baseline. - Review of Systems Constitutional: No Symptoms Eyes: No Symptoms Ears, Nose, & Throat: No Symptoms Respiratory: No Symptoms Cardiac: Edema (BLE 2+ ) Abdominal/Gastrointestinal: No Symptoms Genitourinary Symptoms: No Symptoms Musculoskeletal: No Symptoms Skin: Cellulitis Neurological: No Symptoms Psychological: No Symptoms Objective Exam General Appearance: no apparent distress Neurologic Exam: alert, oriented x 3, cooperative Skin Exam: other (BLE edema with venous stasis dermatitis with superimposed cellulitis to LLE, marked, recceded from original borders) Eye Exam: PERRL Respiratory Exam: normal breath sounds Cardiovascular Exam: regular rate/rhythm, normal heart sounds, edema Gastrointestinal/Abdomen Exam: soft, normal bowel sounds Extremity Exam: other (BLE edema with venous stasis dermatitis with superimposed cellulitis to LLE, marked, recceded from original borders) OBJECTIVE DATA Vital Signs: Vital Signs - 24 hr Temp Pulse Resp BP Pulse Ox 07/11/23 07:29 92 L 07/11/23 07:07 97.4 F 106 H 18 138/82 90 L 07/11/23 04:00 97.1 F 110 H 18 135/78 94 L 07/10/23 23:30 97.1 F 108 H 18 142/82 94 L 07/10/23 19:31 97.7 F 108 H 18 113/72 93 L 07/10/23 18:37 96 07/10/23 16:00 97.5 F 92 H 18 121/74 98 07/10/23 11:34 97.5 F 106 H 20 138/82 95 Pain Assessment - Last Documented Pain Intensity 7 Pain Scale Used 0-10 Pain Scale Intake and Output: Intake & Output 07/08/23 07/09/23 07/10/23 07/11/23 11:59 11:59 11:59 11:59 Intake Total 2768 352 959 6170 Output Total 1150 0105 230 0114 Balance 2578 1090 -161 197 Lab Results: Lab Results-Last 24 Hours 07/10/23 07/10/23 07/11/23 Range/Units 16:48 21:19 01:40 WBC (4.0-10.5) x10^3/uL RBC (4.1-5.6) x10^6/uL Hgb (12.5-18.0) g/dL Hct (42-50) % MCV (78-100) fL MCH (26-32) pg MCHC (32-36) g/dL RDW (11.5-14.0) % Plt Count (150-450) x10^3/uL MPV (7.5-11.0) fL Gran % (36.0-66.0) % Immature Gran % (Auto) (0.00-0.4) % Nucleat RBC Rel Count (0.00-0.1) % Eos # (Auto) (0-0.5) x10^3/uL Immature Gran # (Auto) (0.00-0.03) x10^3u/L Absolute Lymphs (auto) (1.0-4.6) x10^3/uL Absolute Monos (auto) (0.0-1.3) x10^3/uL Absolute Nucleated RBC (0.00-0.01) x10^3u/L Lymphocytes % (24.0-44.0) % Monocytes % (0.0-12.0) % Eosinophils % (0.00-5.0) % Basophils % (0.0-0.4) % Absolute Granulocytes (1.4-6.9) x10^3/uL Basophils # (0-0.4) x10^3/uL Sodium 138 (137-145) mmol/L Potassium 4.3 (3.5-5.1) mmol/L Chloride 103 (98-107) mmol/L Carbon Dioxide 29 (22-30) mmol/L Anion Gap 11.2 (5-15) MEQ/L BUN 20 (9-20) mg/dL Creatinine 1.06 (0.66-1.25) mg/dL Estimated GFR > 60.0 ML/MIN Glucose 197 H (74-106) mg/dL POC Glucometer 203 H 240 H (74 to 106) mg/dL Calcium 8.5 (8.4-10.2) mg/dL Magnesium 2.1 (1.6-2.3) mg/dL Total Bilirubin 1.80 H (0.2-1.3) mg/dL AST 28 (17-59) U/L ALT 28 (0-50) U/L Alkaline Phosphatase 145 H (38-126) U/L Serum Total Protein 6.8 (6.3-8.2) g/dL Albumin 3.5 (3.5-5.0) g/dL Vancomycin Trough (10-20) ug/mL 07/11/23 07/11/23 07/11/23 Range/Units 01:40 01:40 06:58 WBC 9.3 (4.0-10.5) x10^3/uL RBC 4.87 (4.1-5.6) x10^6/uL Hgb 12.8 (12.5-18.0) g/dL Hct 42.5 (42-50) % MCV 87.3 (78-100) fL MCH 26.3 (26-32) pg MCHC 30.1 L (32-36) g/dL RDW 16.8 H (11.5-14.0) % Plt Count 275 (150-450) x10^3/uL MPV 9.8 (7.5-11.0) fL Gran % 71.8 H (36.0-66.0) % Immature Gran % (Auto) 0.3 (0.00-0.4) % Nucleat RBC Rel Count 0.0 (0.00-0.1) % Eos # (Auto) 0.43 (0-0.5) x10^3/uL Immature Gran # (Auto) 0.03 (0.00-0.03) x10^3u/L Absolute Lymphs (auto) 1.14 (1.0-4.6) x10^3/uL Absolute Monos (auto) 0.97 (0.0-1.3) x10^3/uL Absolute Nucleated RBC 0.00 (0.00-0.01) x10^3u/L Lymphocytes % 12.3 L (24.0-44.0) % Monocytes % 10.4 (0.0-12.0) % Eosinophils % 4.6 (0.00-5.0) % Basophils % 0.6 (0.0-0.4) % Absolute Granulocytes 6.67 (1.4-6.9) x10^3/uL Basophils # 0.06 (0-0.4) x10^3/uL Sodium (137-145) mmol/L Potassium (3.5-5.1) mmol/L Chloride (98-107) mmol/L Carbon Dioxide (22-30) mmol/L Anion Gap (5-15) MEQ/L BUN (9-20) mg/dL Creatinine (0.66-1.25) mg/dL Estimated GFR ML/MIN Glucose (74-106) mg/dL POC Glucometer 236 H (74 to 106) mg/dL Calcium (8.4-10.2) mg/dL Magnesium (1.6-2.3) mg/dL Total Bilirubin (0.2-1.3) mg/dL AST (17-59) U/L ALT (0-50) U/L Alkaline Phosphatase (38-126) U/L Serum Total Protein (6.3-8.2) g/dL Albumin (3.5-5.0) g/dL Vancomycin Trough 13.35 (10-20) ug/mL 07/11/23 Range/Units 11:00 WBC (4.0-10.5) x10^3/uL RBC (4.1-5.6) x10^6/uL Hgb (12.5-18.0) g/dL Hct (42-50) % MCV (78-100) fL MCH (26-32) pg MCHC (32-36) g/dL RDW (11.5-14.0) % Plt Count (150-450) x10^3/uL MPV (7.5-11.0) fL Gran % (36.0-66.0) % Immature Gran % (Auto) (0.00-0.4) % Nucleat RBC Rel Count (0.00-0.1) % Eos # (Auto) (0-0.5) x10^3/uL Immature Gran # (Auto) (0.00-0.03) x10^3u/L Absolute Lymphs (auto) (1.0-4.6) x10^3/uL Absolute Monos (auto) (0.0-1.3) x10^3/uL Absolute Nucleated RBC (0.00-0.01) x10^3u/L Lymphocytes % (24.0-44.0) % Monocytes % (0.0-12.0) % Eosinophils % (0.00-5.0) % Basophils % (0.0-0.4) % Absolute Granulocytes (1.4-6.9) x10^3/uL Basophils # (0-0.4) x10^3/uL Sodium (137-145) mmol/L Potassium (3.5-5.1) mmol/L Chloride (98-107) mmol/L Carbon Dioxide (22-30) mmol/L Anion Gap (5-15) MEQ/L BUN (9-20) mg/dL Creatinine (0.66-1.25) mg/dL Estimated GFR ML/MIN Glucose (74-106) mg/dL POC Glucometer 241 H (74 to 106) mg/dL Calcium (8.4-10.2) mg/dL Magnesium (1.6-2.3) mg/dL Total Bilirubin (0.2-1.3) mg/dL AST (17-59) U/L ALT (0-50) U/L Alkaline Phosphatase (38-126) U/L Serum Total Protein (6.3-8.2) g/dL Albumin (3.5-5.0) g/dL Vancomycin Trough (10-20) ug/mL Radiology Exams: Radiology Procedures Category Date Time Status CHEST 1 VIEW (PORTABLE) Urgent Exams 07/10/23 14:05 Completed Multi-Disciplinary Progress Notes: Multi-Disciplinary Progress Notes 07/11/23 10:04 Case Management Note by Linda Darnell PATIENT UPDATED THAT [facility] HAS ACCEPTED AND ARE WAITING INSURANCE APPROVAL- HE CONTINUES TO BE AGREEABLE TO PLAN TO TRANSITION TO SNF AT TIME OF DC Initialized on 07/11/23 10:04 - END OF NOTE 07/11/23 08:50 Case Management Note by Linda Darnell HAS ACCEPTED PATIENT- INSURANCE PRECERT IS PENDING. PASRR PAPERWORK STILL PENDING AT THIS TIME Initialized on 07/11/23 08:50 - END OF NOTE 07/10/23 14:45 Case Management Note by Linda Darnell S/W PATIENT- PATIENT UNABLE TO AMBULATE AT THIS TIME D/T PAIN- PATIENT INTERESTED IN REHAB FACILITY. HE REPORTS HIS FIRST CHOICE IS [facility] FOLLOWS BY TEDDY Initialized on 07/10/23 14:45 - END OF NOTE 07/10/23 14:44 Case Management Note by Linda DarnellRR PAPERWORK STARTED AT THIS TIME- PENDING REVIEW FULL REFERRAL FAXED TO [facility] AT THIS TIME Initialized on 07/10/23 14:44 - END OF NOTE Assessment/Plan (1) Cellulitis of left lower extremity Current Visit: Yes Status: Acute Assessment & Plan: Zosyn/ vancomycin changed to vantin/doxy for 7 days, spoke with Dr. Campbell, appt made for 7 days for follow up - BC cultures negative X2 - US doppler negative for DVT - Lasix BID - IV fluids stopped - Pain control with tylenol and morphine - Elevation of leg - Wound Care - PT/CM working on discharge to SNF - May need home walker and ankle brace -add 1 x dose of lasix, Code(s): L03.116 - CELLULITIS OF LEFT LOWER LIMB (2) Depression Current Visit: Yes Status: Acute Assessment & Plan: - continue Celexa Code(s): F32.A - DEPRESSION, UNSPECIFIED (3) Hypertension Current Visit: Yes Status: Acute Assessment & Plan: - Controlled - Continue Lisinopril Code(s): I10 - ESSENTIAL (PRIMARY) HYPERTENSION (4) Left ankle pain Current Visit: Yes Status: Acute Qualifiers: Chronicity: acute Qualified Code(s): M25.572 - Pain in left ankle and joints of left foot Assessment & Plan: - XR left ankle- 07/08 3 view left ankle demonstrates diffuse soft tissue swelling/edema, moderate scattered vascular calcifications, and tiny lower leg subcutaneous calcifications. No other bony, articular, or soft tissue abnormalities. Code(s): M25.572 - PAIN IN LEFT ANKLE AND JOINTS OF LEFT FOOT (5) Obesity Current Visit: Yes Status: Acute Assessment & Plan: discussed diet and exercise management Code(s): E66.9 - OBESITY, UNSPECIFIED (6) Oxygen desaturation during sleep Current Visit: Yes Status: Acute Assessment & Plan: -O2 dropped at night into 80's and 2LNC placed to keep O2 >92% - Baseline RA - Will need sleep study at d/c as may have sleep apnea Code(s): G47.34 - IDIO SLEEP RELATED NONOBSTRUCTIVE ALVEOLAR HYPOVENTILATION (7) Peripheral vascular disease Current Visit: Yes Status: Acute Assessment & Plan: - Chronic Code(s): I73.9 - PERIPHERAL VASCULAR DISEASE, UNSPECIFIED (8) Type I diabetes mellitus Current Visit: Yes Status: Acute Assessment & Plan: - A1C 8.33 - Lantus, Humalog - Controlled D/C plan 1-2 days to ?SNF VTE: Lovenox Next of KIN: Joon Grace,
[2023-07-11] MEDS ORDERED: Zanaflex 4 MG PO PRN (15:38)
[2023-07-11] MEDS ORDERED: Lasix 40 MG/4 ML IV ONE (15:39)
[2023-07-11] MEDS: Lasix 40 MG PO SCH (22:21)
--- NOTE | 2023-07-12 05:19 | PCM.DS ---
Discharge Summary Date of Admission: 07/07/23 15:00 Date of Discharge: 07/12/23 Admitting Physician: SPEEDY CARLISLE MD Primary Care Provider: SHILPA CORBIN Allergies Allergies No Known Drug Allergies Allergy (Verified 07/06/23 17:25) Hospital Summary - Hospital Course Hospital Course: Mr. Haddad is a 52 year-old male with DM1, HTN, and PVD who presented with cellulitis. He admits to hitting his left knee on some gravel while playing touch football [employer], he has had subsequent pain, redness, and swelling of LLE and he pursued medical care with his PCP - he was prescribed outpatient levaquin. He presented 07/07/23 with worsening pain, redness, and swelling to his left lower extremity. Doppler US obtained and was negative. Yesterday his left ankle was swollen and XR ordered. XR was negative. He continues to c/o increased pain and reports unable to place weight or walk on affected leg. Erythema and edema have improved, receding from the marked borders. During hospital course, has received Vanc/Zosyn, currently on oral Vantin/Doxy combo for the next 7 days. Patient will discharge to SNF for further rehibilitation. Will follow up OP with ID once abx complete. (1) Cellulitis of left lower extremity Current Visit: Yes Status: Acute Assessment & Plan: Zosyn/ vancomycin changed to vantin/doxy for 7 days, spoke with Dr. Garcia, appt made for 7 days for follow up - BC cultures negative X2 - US doppler negative for DVT - Lasix BID - IV fluids stopped - Pain control with tylenol and morphine - Elevation of leg - Wound Care - PT/CM working on discharge to SNF - May need home walker and ankle brace -add 1 x dose of lasix, Code(s): L03.116 - CELLULITIS OF LEFT LOWER LIMB (2) Depression Current Visit: Yes Status: Acute Assessment & Plan: - continue Celexa Code(s): F32.A - DEPRESSION, UNSPECIFIED (3) Hypertension Current Visit: Yes Status: Acute Assessment & Plan: - Controlled - Continue Lisinopril Code(s): I10 - ESSENTIAL (PRIMARY) HYPERTENSION (4) Left ankle pain Current Visit: Yes Status: Acute Qualifiers: Chronicity: acute Qualified Code(s): M25.572 - Pain in left ankle and joints of left foot Assessment & Plan: - XR left ankle- 07/08 3 view left ankle demonstrates diffuse soft tissue swelling/edema, moderate scattered vascular calcifications, and tiny lower leg subcutaneous calcifications. No other bony, articular, or soft tissue abnormalities. Code(s): M25.572 - PAIN IN LEFT ANKLE AND JOINTS OF LEFT FOOT (5) Obesity Current Visit: Yes Status: Acute Assessment & Plan: discussed diet and exercise management Code(s): E66.9 - OBESITY, UNSPECIFIED (6) Oxygen desaturation during sleep Current Visit: Yes Status: Acute Assessment & Plan: -O2 dropped at night into 80's and 2LNC placed to keep O2 >92% - Baseline RA - Will need sleep study at d/c as may have sleep apnea Code(s): G47.34 - IDIO SLEEP RELATED NONOBSTRUCTIVE ALVEOLAR HYPOVENTILATION (7) Peripheral vascular disease Current Visit: Yes Status: Acute Assessment & Plan: - Chronic Code(s): I73.9 - PERIPHERAL VASCULAR DISEASE, UNSPECIFIED (8) Type I diabetes mellitus Current Visit: Yes Status: Acute Assessment & Plan: - A1C 8.33 - Lantus, Humalog - Controlled - Vitals & Intake/Output Vital Signs: Vital Signs Temperature 98.1 F 07/12/23 04:00 Pulse Rate 98 H 07/12/23 04:00 Respiratory Rate 20 07/12/23 04:00 Blood Pressure 122/80 07/12/23 04:00 O2 Sat by Pulse Oximetry 96 07/12/23 04:00 Intake & Output: Intake & Output 07/09/23 07/10/23 07/11/23 07/12/23 11:59 11:59 11:59 11:59 Intake Total 330 187 4650 1060 Output Total 4285 465 8454 450 Balance -1090 -360 174 610 Weight 161.5 kg - Lab Result Diagrams: 07/11/23 01:40 07/11/23 01:40 Lab Results-Last 24 Hrs: Lab Results-Last 24 Hours 07/11/23 07/11/23 07/11/23 Range/Units 06:58 11:00 16:30 POC Glucometer 236 H 241 H 149 H (74 to 106) mg/dL 07/11/23 Range/Units 21:07 POC Glucometer 179 H (74 to 106) mg/dL Micro Results-Entire Visit: Microbiology 07/06/23 19:20 Blood Culture - Final Blood 07/06/23 19:20 Blood Culture - Final Blood Accuchecks Date 07/11/23 Date 07/11/23 Date 07/11/23 Time 16:44 Time 11:30 Time 07:07 - Radiology Exams Ordered Rad Exams-Entire Visit: Radiology Procedures Category Date Time Status CHEST 1 VIEW (PORTABLE) Urgent Exams 07/10/23 14:05 Completed - Procedures and Test Procedures and Tests throughout Hospitalization: Therapy Orders & Screens 07/08/23 09:59 Oxygen Nasal Cannula 2 lpm Comment: Keep sat > 92%- for night use Diagnosis: Left lower extremity cellulitis 07/08/23 12:03 PT Eval & Treat (MD Order) ONCE Reason for Eval:: pt not walking well Diagnosis: Left lower extremity cellulitis 07/11/23 12:30 PT Eval & Treat (MD Order) ONCE Reason for Eval:: UNNA BOOTS Diagnosis: Left lower extremity cellulitis Final Diagnosis/Problem List - Final Discharge Diagnosis/Problem (1) Cellulitis of left lower extremity Current Visit: Yes Status: Acute Code(s): L03.116 - CELLULITIS OF LEFT LOWER LIMB (2) Depression Current Visit: Yes Status: Acute Code(s): F32.A - DEPRESSION, UNSPECIFIED (3) Hypertension Current Visit: Yes Status: Acute Code(s): I10 - ESSENTIAL (PRIMARY) HYP ERTENSION (4) Left ankle pain Current Visit: Yes Status: Acute Code(s): M25.572 - PAIN IN LEFT ANKLE AND JOINTS OF LEFT FOOT (5) Obesity Current Visit: Yes Status: Acute Code(s): E66.9 - OBESITY, UNSPECIFIED (6) Oxygen desaturation during sleep Current Visit: Yes Status: Acute Code(s): G47.34 - IDIO SLEEP RELATED NONOBSTRUCTIVE ALVEOLAR HYPOVENTILATION (7) Peripheral vascular disease Current Visit: Yes Status: Acute Code(s): I73.9 - PERIPHERAL VASCULAR DISEASE, UNSPECIFIED (8) Type I diabetes mellitus Current Visit: Yes Status: Acute - Discharge Disposition: Home, Self-Care Condition: Stable Prescriptions: No Action Aspirin 325 mg PO DAILY Insulin Lispro [Humalog] 20 units SQ TID Insulin Glargine,Hum.rec.anlog [Basaglar Kwikpen U-100] 50 unit SQ HS Insulin Glargine,Hum.rec.anlog [Basaglar Kwikpen U-100] 30 unit SQ QAM Lisinopril 20 mg [Zestril 20 MG] 20 mg PO DAILY Citalopram Hydrobromide 20 mg* [ceLEXa 20 MG] 20 mg PO DAILY Furosemide 20 mg [Lasix 20 mg] 20 mg PO DAILY Furosemide 20 mg [Lasix 20 mg] 20 mg PO HSPRN PRN PRN Reason: diuretic Instructions: Cellulitis (Skin Infection), Adult (DC) Follow up with: [facility] [NON-STAFF PHY W/O PRIVILEGES] - (need appointment set up within 7 days of discharge. ) SHILPA CORBIN MD [Primary Care Provider] - Call for Appointment Forms: Discharge Instructions, Patient Portal Information
[2023-07-12 06:19] LABS: Absolute Neutrophil Ct (ANC) 6.37 x10^3/uL (1.4-6.9); BASOPHIL % 0.5 % (0.0-0.4); Basophil (Absolute #) 0.04 x10^3/uL (0-0.4); Eosinophil % 2.4 % (0.00-5.0); Hematocrit 41.8 % (42-50); Hemoglobin 12.9 g/dL (12.5-18.0); IMMATURE GRAN # 0.03 x10^3u/L (0.00-0.03); IMMATURE GRAN % 0.4 % (0.00-0.4); Lymphocyte (Absolute #) 1.15 x10^3/uL (1.0-4.6); Lymphocytes % 13.5 % (24.0-44.0); Mean Cell Volume 87.1 fL (78-100); Mean Corpuscular Hemoglobin 26.9 pg (26-32); Mean Corpuscular Hgb Concent. 30.9 g/dL (32-36); Mean Platelet Volume 9.4 fL (7.5-11.0); Monocytes % 8.2 % (0.0-12.0); Platelet Count 269 x10^3/uL (150-450); Red Cell Distribution Width 16.9 % (11.5-14.0); White Blood Count 8.5 x10^3/uL (4.0-10.5)
[2023-07-12 06:27] LABS: ALBUMIN 3.6 g/dL (3.5-5.0); ALKALINE PHOSPHATASE 138 U/L (38-126); ANION GAP 10.8 MEQ/L (5-15); BLOOD UREA NITROGEN 20 mg/dL (9-20); CHLORIDE 103 mmol/L (98-107); Calcium 8.6 mg/dL (8.4-10.2); Carbon Dioxide 30 mmol/L (22-30); Creatinine 1 0.97 mg/dL (0.66-1.25); EST GLOMERULAR FILTRATION RATE > 60.0 ML/MIN; Glucose 118 mg/dL (74-106); Potassium 3.7 mmol/L (3.5-5.1); SGOT/AST 32 U/L (17-59); SGPT/ALT 28 U/L (0-50); SODIUM 140 mmol/L (137-145); Total Protein 6.9 g/dL (6.3-8.2)
[2023-07-12] MEDS: HUMALOG SQ SCH ×3 (08:15→17:21)
[2023-07-12] MEDS: Lantus Insulin SQ SCH ×2 (08:16→23:15)
[2023-07-12] MEDS: Vibramycin 100 MG PO SCH ×2 (09:29→23:06)
[2023-07-12] MEDS: ceLEXa 20 MG PO SCH (09:29)
[2023-07-12] MEDS: Zestril 20 MG PO SCH (09:29)
[2023-07-12] MEDS: Ecotrin 325 MG PO SCH (09:29)
[2023-07-12] MEDS: Klor Con PO SCH (09:29)
[2023-07-12] MEDS: LASIX 20 MG PO SCH (09:29)
[2023-07-12] MEDS: Acidophilus TABLET PO SCH (09:31)
[2023-07-12] MEDS: NEURONTIN PO SCH ×3 (09:31→23:06)
[2023-07-12] MEDS: ENOXAPARIN SODIUM SQ SCH (09:31)
[2023-07-12] MEDS: NON-FORMULARY ITEM PO SCH ×2 (09:36→23:06)
[2023-07-12] MEDS: NORCO 5/325 MG PO PRN (12:17)
--- NOTE | 2023-07-12 14:22 | PCM.NOTE ---
Date and Time: 07/12/231416 Subjective Assessment: Mr. Haddad is a 52 year-old male with DM1, HTN, and PVD who presented with cellulitis. He admits to hitting his left knee on some gravel while playing touch football [employer], he has had subsequent pain, redness, and swelling of LLE and he pursued medical care with his PCP - he was prescribed outpatient levaqu in. He presented 07/07/23 with worsening pain, redness, and swelling to his left lower extremity. Doppler US obtained and was negative. Yesterday his left ankle was swollen and XR ordered. XR was negative. He continues to c/o increased pain and reports unable to place weight or walk on affected leg. Erythema and edema have improved, receding from the marked borders. During hospital course, has re ceived Vanc/Zosyn, currently on oral Vantin/Doxy combo for the next 7 days. Patient will discharge to SNF for further rehibilitation, currently pending insurance authorization. Will follow up OP with ID once abx complete. Patient still with pain today, bilat legs wrapped which has improved pain some. Continues to require assistance with ambulation due to pain. - Review of Systems Constitutional: No Symptoms Eyes: No Symptoms Ears, Nose, & Throat: No Symptoms Respiratory: No Symptoms Cardiac: No Symptoms Abdominal/Gastrointestinal: No Symptoms Genitourinary Symptoms: No Symptoms Musculoskeletal: No Symptoms Skin: Cellulitis Neurological: No Symptoms Psychological: No Symptoms Objective Exam General Appearance: no apparent distress Neurologic Exam: alert, oriented x 3, cooperative Skin Exam: other (BLE with cellulitis to LLE, receeding marked boarders) Eye Exam: PERRL Neck Exam: normal inspection Respiratory Exam: normal breath sounds, lungs clear Cardiovascular Exam: regular rate/rhythm, normal heart sounds Gastrointestinal/Abdomen Exam: soft, normal bowel sounds OBJECTIVE DATA Vital Signs: Vital Signs - 24 hr Temp Pulse Resp BP Pulse Ox 07/12/23 11:57 97.1 F 104 H 18 144/85 93 L 07/12/23 07:40 98.4 F 106 H 18 150/84 91 L 07/12/23 04:00 98.1 F 98 H 20 122/80 96 07/11/23 23:31 96.9 F 99 H 20 147/83 95 07/11/23 20:00 98.1 F 104 H 20 124/71 95 07/11/23 15:48 97.7 F 99 H 16 115/74 93 L Pain Assessment - Last Documented Pain Intensity 3 Pain Scale Used 0-10 Pain Scale Intake and Output: Intake & Output 07/10/23 07/11/23 07/12/23 07/13/23 11:59 11:59 11:59 11:59 Intake Total 240 1714 1060 Output Total 600 1540 450 Balance -360 174 610 Weight 161.5 kg Lab Results: Lab Results-Last 24 Hours 07/11/23 07/11/23 07/12/23 Range/Units 16:30 21:07 05:58 WBC 8.5 (4.0-10.5) x10^3/uL RBC 4.80 (4.1-5.6) x10^6/uL Hgb 12.9 (12.5-18.0) g/dL Hct 41.8 L (42-50) % MCV 87.1 (78-100) fL MCH 26.9 (26-32) pg MCHC 30.9 L (32-36) g/dL RDW 16.9 H (11.5-14.0) % Plt Count 269 (150-450) x10^3/uL MPV 9.4 (7.5-11.0) fL Gran % 75.0 H (36.0-66.0) % Immature Gran % (Auto) 0.4 (0.00-0.4) % Nucleat RBC Rel Count 0.0 (0.00-0.1) % Eos # (Auto) 0.20 (0-0.5) x10^3/uL Immature Gran # (Auto) 0.03 (0.00-0.03) x10^3u/L Absolute Lymphs (auto) 1.15 (1.0-4.6) x10^3/uL Absolute Monos (auto) 0.70 (0.0-1.3) x10^3/uL Absolute Nucleated RBC 0.00 (0.00-0.01) x10^3u/L Lymphocytes % 13.5 L (24.0-44.0) % Monocytes % 8.2 (0.0-12.0) % Eosinophils % 2.4 (0.00-5.0) % Basophils % 0.5 (0.0-0.4) % Absolute Granulocytes 6.37 (1.4-6.9) x10^3/uL Basophils # 0.04 (0-0.4) x10^3/uL Sodium (137-145) mmol/L Potassium (3.5-5.1) mmol/L Chloride (98-107) mmol/L Carbon Dioxide (22-30) mmol/L Anion Gap (5-15) MEQ/L BUN (9-20) mg/dL Creatinine (0.66-1.25) mg/dL Estimated GFR ML/MIN Glucose (74-106) mg/dL POC Glucometer 149 H 179 H (74 to 106) mg/dL Calcium (8.4-10.2) mg/dL Total Bilirubin (0.2-1.3) mg/dL AST (17-59) U/L ALT (0-50) U/L Alkaline Phosphatase (38-126) U/L Serum Total Protein (6.3-8.2) g/dL Albumin (3.5-5.0) g/dL 07/12/23 07/12/23 07/12/23 Range/Units 05:58 07:31 11:48 WBC (4.0-10.5) x10^3/uL RBC (4.1-5.6) x10^6/uL Hgb (12.5-18.0) g/dL Hct (42-50) % MCV (78-100) fL MCH (26-32) pg MCHC (32-36) g/dL RDW (11.5-14.0) % Plt Count (150-450) x10^3/uL MPV (7.5-11.0) fL Gran % (36.0-66.0) % Immature Gran % (Auto) (0.00-0.4) % Nucleat RBC Rel Count (0.00-0.1) % Eos # (Auto) (0-0.5) x10^3/uL Immature Gran # (Auto) (0.00-0.03) x10^3u/L Absolute Lymphs (auto) (1.0-4.6) x10^3/uL Absolute Monos (auto) (0.0-1.3) x10^3/uL Absolute Nucleated RBC (0.00-0.01) x10^3u/L Lymphocytes % (24.0-44.0) % Monocytes % (0.0-12.0) % Eosinophils % (0.00-5.0) % Basophils % (0.0-0.4) % Absolute Granulocytes (1.4-6.9) x10^3/uL Basophils # (0-0.4) x10^3/uL Sodium 140 (137-145) mmol/L Potassium 3.7 (3.5-5.1) mmol/L Chloride 103 (98-107) mmol/L Carbon Dioxide 30 (22-30) mmol/L Anion Gap 10.8 (5-15) MEQ/L BUN 20 (9-20) mg/dL Creatinine 0.97 (0.66-1.25) mg/dL Estimated GFR > 60.0 ML/MIN Glucose 118 H (74-106) mg/dL POC Glucometer 146 H 284 H (74 to 106) mg/dL Calcium 8.6 (8.4-10.2) mg/dL Total Bilirubin 2.00 H (0.2-1.3) mg/dL AST 32 (17-59) U/L ALT 28 (0-50) U/L Alkaline Phosphatase 138 H (38-126) U/L Serum Total Protein 6.9 (6.3-8.2) g/dL Albumin 3.6 (3.5-5.0) g/dL Radiology Exams: Radiology Procedures Category Date Time Status CHEST 1 VIEW (PORTABLE) Urgent Exams 07/10/23 14:05 Completed Multi-Disciplinary Progress Notes: Multi-Disciplinary Progress Notes 07/12/23 11:01 Case Management Note by Linda Darnell FROM [facility] AUTH IS STILL PENDING ON PATIENT AT THIS TIME- THEY WILL UPDATE US WHEN THEY GET AUTH. PATIENT UPDATED ON STATUS AND VERIFIED UNDERSTANDING Initialized on 07/12/23 11:01 - END OF NOTE 07/11/23 15:32 Physical Therapy Note by Marylu(L#[id number]),[facility]. WAS SEEN BY P.T. THIS P.M. CONT. W/ L LL EDEMA AND ERYTHEMA. UNNA BOOT ORDERED. APPLIED BARRIER OINTMENT TO HYDRATE SKIN FOLLOWED BY [facility] AND [facility] W/ MOD COMPRESSION L LL. DONNED TUBIGRIP G TO R LL FOR COMPRESSION. PT. PERFOMRED SUPINE LE EX'S OF ANKLE PUMPS, QUAD SETS, AND HEEL SLIDES. PT. AGREEABLE TO WALK W/ P.T. PERFORMED SUPINE TO SIT W/ MOD-MAX ASSIST X 2; PT.. TENDS TO PUSH INTO / W/ TRUNK INSTEAD OF FLEXING TO ACHIEVE SITTING. PT. SAT ON SIDE OF BED X 2-3' TO ALLOW L LL DISCOMFORT TO SUBSIDE FROM BEING IN DEPENDENT POSITION. PT. PERFORMED SIT TO STAND W/ MIN-MOD ASSIST X2 W/ BARIATRIC RW IN FRONT OF HIM. AMBULATED TO BATHROOM W/ MIN ASSIST W/ RW. PERFORMED COMMODE TRANSFER W/ CGA. USED ELEVATED COMMODE W/ BEDSIDE COMMODE WHICH ALLOWED PT. TO TOLERATE L LE POSITION MORE COMFORTABLY FOR B.M. PT. ABLE TO STAND FROM COMMODE W/ CGA. AMBULATED ~ 40' IN ROOM W/ BARIATRIC RW AND MIN ASSIST. NOTED WIDE WAGNER, FLEXED TRUNK POSTURE, AND DECREASED KNEE FLEXION L LE W/ SWING PHASE OF GAIT. O2 SATS 96% AFTER WALKING BUT DID NOTE SOB W/ SUPINE TO SIT AND AFTER AMBULATION. PT. NOTED DECREASED L LL DISCOMFORT W/ WB W/ UNNA BOOT IN PLACE. WILL CONT. P.T. 5X/WK UNTIL D/C TO ADDRESS WEAKNESS AND FUNCTIONAL DEFICITS, AND LL EDEMA MG'T TO PREP FOR REHAB STAY. Initialized on 07/11/23 15:32 - END OF NOTE Assessment/Plan (1) Cellulitis of left lower extremity Current Visit: Yes Status: Acute Assessment & Plan: Zosyn/ vancomycin changed to vantin/doxy for 7 days, spoke with Dr. Campbell, appt made for 7 days for follow up - BC cultures negative X2 - US doppler negative for DVT - Lasix BID - IV fluids stopped - Pain control with tylenol and morphine - Elevation of leg - Wound Care - PT/CM working on discharge to SNF - May need home walker and ankle brace -add 1 x dose of lasix, 07/12: -Continue vantin/doxy for a total of 7 days -Continue IPPT -D/c to snf when approved Code(s): L03.116 - CELLULITIS OF LEFT LOWER LIMB (2) Depression Current Visit: Yes Status: Acute Assessment & Plan: - continue Celexa Code(s): F32.A - DEPRESSION, UNSPECIFIED (3) Hypertension Current Visit: Yes Status: Acute Assessment & Plan: - Controlled - Continue Lisinopril Code(s): I10 - ESSENTIAL (PRIMARY) HYPERTENSION (4) Left ankle pain Current Visit: Yes Status: Acute Qualifiers: Chronicity: acute Qualified Code(s): M25.572 - Pain in left ankle and joints of left foot Assessment & Plan: - XR left ankle- 07/08 3 view left ankle demonstrates diffuse soft tissue swelling/edema, moderate scattered vascular calcifications, and tiny lower leg subcutaneous calcifications. No other bony, articular, or soft tissue abnormalities. Code(s): M25.572 - PAIN IN LEFT ANKLE AND JOINTS OF LEFT FOOT (5) Obesity Current Visit: Yes Status: Acute Assessment & Plan: discussed diet and exercise management Code(s): E66.9 - OBESITY, UNSPECIFIED (6) Oxygen desaturation during sleep Current Visit: Yes Status: Acute Assessment & Plan: -O2 dropped at night into 80's and 2LNC placed to keep O2 >92% - Baseline RA - Will need sleep study at d/c as may have sleep apnea Code(s): G47.34 - IDIO SLEEP RELATED NONOBSTRUCTIVE ALVEOLAR HYPOVENTILATION (7) Peripheral vascular disease Current Visit: Yes Status: Acute Assessment & Plan: - Chronic Code(s): I73.9 - PERIPHERAL VASCULAR DISEASE, UNSPECIFIED (8) Type I diabetes mellitus Current Visit: Yes Status: Acute Assessment & Plan: - A1C 8.33 - Lantus, Humalog - Controlled
[2023-07-12] MEDS: Lasix 40 MG PO SCH (23:09)
[2023-07-13 00:32] VITALS: TEMP 96.9
[2023-07-13 06:01] LABS: ALBUMIN 3.7 g/dL (3.5-5.0); ALKALINE PHOSPHATASE 135 U/L (38-126); ANION GAP 13.9 MEQ/L (5-15); BLOOD UREA NITROGEN 23 mg/dL (9-20); CHLORIDE 101 mmol/L (98-107); Calcium 8.8 mg/dL (8.4-10.2); Carbon Dioxide 27 mmol/L (22-30); Creatinine 1 1.06 mg/dL (0.66-1.25); EST GLOMERULAR FILTRATION RATE > 60.0 ML/MIN; Glucose 103 mg/dL (74-106); Potassium 3.7 mmol/L (3.5-5.1); SGOT/AST 34 U/L (17-59); SGPT/ALT 30 U/L (0-50); SODIUM 138 mmol/L (137-145); Total Protein 7.1 g/dL (6.3-8.2)
[2023-07-13 06:17] LABS: Absolute Neutrophil Ct (ANC) 6.81 x10^3/uL (1.4-6.9); Basophil (Absolute #) 0.09 x10^3/uL (0-0.4); Eosinophil % 2.2 % (0.00-5.0); Eosinophil (Absolute #) 0.21 x10^3/uL (0-0.5); Hematocrit 42.4 % (42-50); Hemoglobin 13.2 g/dL (12.5-18.0); IMMATURE GRAN # 0.03 x10^3u/L (0.00-0.03); IMMATURE GRAN % 0.3 % (0.00-0.4); Lymphocytes % 15.8 % (24.0-44.0); Mean Cell Volume 85.7 fL (78-100); Mean Corpuscular Hemoglobin 26.7 pg (26-32); Mean Corpuscular Hgb Concent. 31.1 g/dL (32-36); Mean Platelet Volume 10.6 fL (7.5-11.0); Monocyte (Absolute #) 0.83 x10^3/uL (0.0-1.3); Monocytes % 8.8 % (0.0-12.0); Neutrophil % 71.9 % (36.0-66.0); Platelet Count 311 x10^3/uL (150-450); Red Blood Count 4.95 x10^6/uL (4.1-5.6); Red Cell Distribution Width 17.2 % (11.5-14.0); White Blood Count 9.5 x10^3/uL (4.0-10.5)
[2023-07-13 07:15] VITALS: RESP 18
[2023-07-13] MEDS: Lantus Insulin SQ SCH (08:31)
[2023-07-13] MEDS: HUMALOG SQ SCH ×2 (08:32→12:42)
[2023-07-13] MEDS: NORCO 5/325 MG PO PRN (08:36)
[2023-07-13] MEDS: Vibramycin 100 MG PO SCH (09:04)
[2023-07-13] MEDS: Acidophilus TABLET PO SCH (09:04)
[2023-07-13] MEDS: Klor Con PO SCH (09:04)
[2023-07-13] MEDS: Zestril 20 MG PO SCH (09:04)
[2023-07-13] MEDS: Ecotrin 325 MG PO SCH (09:04)
[2023-07-13] MEDS: ENOXAPARIN SODIUM SQ SCH (09:04)
[2023-07-13] MEDS: NEURONTIN PO SCH ×2 (09:04→14:56)
[2023-07-13] MEDS: ceLEXa 20 MG PO SCH (09:04)
[2023-07-13] MEDS: LASIX 20 MG PO SCH (09:04)
[2023-07-13] MEDS: NON-FORMULARY ITEM PO SCH (09:05)
--- NOTE | 2023-07-13 09:52 | PCM.DS ---
Discharge Summary Date of Admission: 07/07/23 15:00 Date of Discharge: 07/13/23 Admitting Physician: SPEEDY CARLISLE MD Consults: Dr. Garcia Sleep study Primary Care Provider: SHILPA CORBIN Allergies Allergies No Known Drug Allergies Allergy (Verified 07/06/23 17:25) Hospital Summary - Hospital Course Hospital Course: Mr. Haddad is a 52 year-old male with DM1, HTN, and PVD who presented with cellulitis. He admits to hitting his left knee on some gravel while playing touch football [employer], he has had subsequent pain, redness, and swelling of LLE and he pursued medical care with his PCP - he was prescribed outpatient levaq uin. He presented 07/07/23 with worsening pain, redness, and swelling to his left lower extremity. Doppler US obtained and was negative. Yesterday his left ankle was swollen and XR ordered. XR was negative. He continues to c/o increased pain and reports unable to place weight or walk on affected leg. Erythema and edema have improved, receding from the marked borders. During hospital course, has r eceived Vanc/Zosyn, currently on oral Vantin/Doxy combo for which he will continue until 07/17/23. Patient will discharge to SNF for further rehibilitation. Will follow up OP with ID once abx complete. Patient still with pain today, bilat legs wrapped which has improved pain some. Continues to requir e assistance with ambulation due to pain. Patient also set up for out patient sleep study Most recent Assessment Assessment & Plan: Zosyn/ vancomycin changed to vantin/doxy for 7 days, spoke with Dr. Garcia, appt made for 7 days for follow up - BC cultures negative X2 - US doppler negative for DVT - Lasix BID - IV fluids stopped - Pain control with tylenol and morphine - Elevation of leg - Wound Care - PT/CM working on discharge to SNF - May need home walker and ankle brace -add 1 x dose of lasix, 07/12: -Continue vantin/doxy for a total of 7 days -Continue IPPT -D/c to snf when approved Code(s): L03.116 - CELLULITIS OF LEFT LOWER LIMB (2) Depression Current Visit: Yes Status: Acute Assessment & Plan: - continue Celexa Code(s): F32.A - DEPRESSION, UNSPECIFIED (3) Hypertension Current Visit: Yes Status: Acute Assessment & Plan: - Controlled - Continue Lisinopril Code(s): I10 - ESSENTIAL (PRIMARY) HYPERTENSION (4) Left ankle pain Current Visit: Yes Status: Acute Qualifiers: Chronicity: acute Qualified Code(s): M25.572 - Pain in left ankle and joints of left foot Assessment & Plan: - XR left ankle- 07/08 3 view left ankle demonstrates diffuse soft tissue swelling/edema, moderate scattered vascular calcifications, and tiny lower leg subcutaneous calcifications. No other bony, articular, or soft tissue abnormalities. Code(s): M25.572 - PAIN IN LEFT ANKLE AND JOINTS OF LEFT FOOT (5) Obesity Current Visit: Yes Status: Acute Assessment & Plan: discussed diet and exercise management Code(s): E66.9 - OBESITY, UNSPECIFIED (6) Oxygen desaturation during sleep Current Visit: Yes Status: Acute Assessment & Plan: -O2 dropped at night into 80's and 2LNC placed to keep O2 >92% - Baseline RA - Will need sleep study at d/c as may have sleep apnea Code(s): G47.34 - IDIO SLEEP RELATED NONOBSTRUCTIVE ALVEOLAR HYPOVENTILATION (7) Peripheral vascular disease Current Visit: Yes Status: Acute Assessment & Plan: - Chronic Code(s): I73.9 - PERIPHERAL VASCULAR DISEASE, UNSPECIFIED (8) Type I diabetes mellitus Current Visit: Yes Status: Acute Assessment & Plan: - A1C 8.33 - Lantus, Humalog - Controlled New Meds: Vantin/Doxycycline Follow up: PCP/ID/sleep study Diso: SNF for rehab - Vitals & Intake/Output Vital Signs: Vital Signs Temperature 96.9 F 07/13/23 07:14 Pulse Rate 98 H 07/13/23 07:14 Respiratory Rate 18 07/13/23 07:14 Blood Pressure 154/91 07/13/23 07:14 O2 Sat by Pulse Oximetry 96 07/13/23 07:14 Intake & Output: Intake & Output 07/10/23 07/11/23 07/12/23 07/13/23 11:59 11:59 11:59 11:59 Intake Total 240 1714 1060 960 Output Total 600 1540 450 50 Balance -360 174 610 910 Weight 161.5 kg - Lab Result Diagrams: 07/13/23 05:04 07/13/23 05:04 Lab Results-Last 24 Hrs: Lab Results-Last 24 Hours 07/12/23 07/12/23 07/12/23 Range/Units 11:48 16:33 20:06 WBC (4.0-10.5) x10^3/uL RBC (4.1-5.6) x10^6/uL Hgb (12.5-18.0) g/dL Hct (42-50) % MCV (78-100) fL MCH (26-32) pg MCHC (32-36) g/dL RDW (11.5-14.0) % Plt Count (150-450) x10^3/uL MPV (7.5-11.0) fL Gran % (36.0-66.0) % Immature Gran % (Auto) (0.00-0.4) % Nucleat RBC Rel Count (0.00-0.1) % Eos # (Auto) (0-0.5) x10^3/uL Immature Gran # (Auto) (0.00-0.03) x10^3u/L Absolute Lymphs (auto) (1.0-4.6) x10^3/uL Absolute Monos (auto) (0.0-1.3) x10^3/uL Absolute Nucleated RBC (0.00-0.01) x10^3u/L Lymphocytes % (24.0-44.0) % Monocytes % (0.0-12.0) % Eosinophils % (0.00-5.0) % Basophils % (0.0-0.4) % Absolute Granulocytes (1.4-6.9) x10^3/uL Basophils # (0-0.4) x10^3/uL Sodium (137-145) mmol/L Potassium (3.5-5.1) mmol/L Chloride (98-107) mmol/L Carbon Dioxide (22-30) mmol/L Anion Gap (5-15) MEQ/L BUN (9-20) mg/dL Creatinine (0.66-1.25) mg/dL Estimated GFR ML/MIN Glucose (74-106) mg/dL POC Glucometer 284 H 102 50 L (74 to 106) mg/dL Calcium (8.4-10.2) mg/dL Total Bilirubin (0.2-1.3) mg/dL AST (17-59) U/L ALT (0-50) U/L Alkaline Phosphatase (38-126) U/L Serum Total Protein (6.3-8.2) g/dL Albumin (3.5-5.0) g/dL 07/12/23 07/12/23 07/13/23 Range/Units 21:17 22:47 01:25 WBC (4.0-10.5) x10^3/uL RBC (4.1-5.6) x10^6/uL Hgb (12.5-18.0) g/dL Hct (42-50) % MCV (78-100) fL MCH (26-32) pg MCHC (32-36) g/dL RDW (11.5-14.0) % Plt Count (150-450) x10^3/uL MPV (7.5-11.0) fL Gran % (36.0-66.0) % Immature Gran % (Auto) (0.00-0.4) % Nucleat RBC Rel Count (0.00-0.1) % Eos # (Auto) (0-0.5) x10^3/uL Immature Gran # (Auto) (0.00-0.03) x10^3u/L Absolute Lymphs (auto) (1.0-4.6) x10^3/uL Absolute Monos (auto) (0.0-1.3) x10^3/uL Absolute Nucleated RBC (0.00-0.01) x10^3u/L Lymphocytes % (24.0-44.0) % Monocytes % (0.0-12.0) % Eosinophils % (0.00-5.0) % Basophils % (0.0-0.4) % Absolute Granulocytes (1.4-6.9) x10^3/uL Basophils # (0-0.4) x10^3/uL Sodium (137-145) mmol/L Potassium (3.5-5.1) mmol/L Chloride (98-107) mmol/L Carbon Dioxide (22-30) mmol/L Anion Gap (5-15) MEQ/L BUN (9-20) mg/dL Creatinine (0.66-1.25) mg/dL Estimated GFR ML/MIN Glucose (74-106) mg/dL POC Glucometer 119 H 103 125 H (74 to 106) mg/dL Calcium (8.4-10.2) mg/dL Total Bilirubin (0.2-1.3) mg/dL AST (17-59) U/L ALT (0-50) U/L Alkaline Phosphatase (38-126) U/L Serum Total Protein (6.3-8.2) g/dL Albumin (3.5-5.0) g/dL 07/13/23 07/13/23 07/13/23 Range/Units 05:04 05:04 07:02 WBC 9.5 (4.0-10.5) x10^3/uL RBC 4.95 (4.1-5.6) x10^6/uL Hgb 13.2 (12.5-18.0) g/dL Hct 42.4 (42-50) % MCV 85.7 (78-100) fL MCH 26.7 (26-32) pg MCHC 31.1 L (32-36) g/dL RDW 17.2 H (11.5-14.0) % Plt Count 311 (150-450) x10^3/uL MPV 10.6 (7.5-11.0) fL Gran % 71.9 H (36.0-66.0) % Immature Gran % (Auto) 0.3 (0.00-0.4) % Nucleat RBC Rel Count 0.0 (0.00-0.1) % Eos # (Auto) 0.21 (0-0.5) x10^3/uL Immature Gran # (Auto) 0.03 (0.00-0.03) x10^3u/L Absolute Lymphs (auto) 1.50 (1.0-4.6) x10^3/uL Absolute Monos (auto) 0.83 (0.0-1.3) x10^3/uL Absolute Nucleated RBC 0.00 (0.00-0.01) x10^3u/L Lymphocytes % 15.8 L (24.0-44.0) % Monocytes % 8.8 (0.0-12.0) % Eosinophils % 2.2 (0.00-5.0) % Basophils % 1.0 (0.0-0.4) % Absolute Granulocytes 6.81 (1.4-6.9) x10^3/uL Basophils # 0.09 (0-0.4) x10^3/uL Sodium 138 (137-145) mmol/L Potassium 3.7 (3.5-5.1) mmol/L Chloride 101 (98-107) mmol/L Carbon Dioxide 27 (22-30) mmol/L Anion Gap 13.9 (5-15) MEQ/L BUN 23 H (9-20) mg/dL Creatinine 1.06 (0.66-1.25) mg/dL Estimated GFR > 60.0 ML/MIN Glucose 103 (74-106) mg/dL POC Glucometer 98 (74 to 106) mg/dL Calcium 8.8 (8.4-10.2) mg/dL Total Bilirubin 1.30 (0.2-1.3) mg/dL AST 34 (17-59) U/L ALT 30 (0-50) U/L Alkaline Phosphatase 135 H (38-126) U/L Serum Total Protein 7.1 (6.3-8.2) g/dL Albumin 3.7 (3.5-5.0) g/dL Micro Results-Entire Visit: Microbiology 07/06/23 19:20 Blood Culture - Final Blood 07/06/23 19:20 Blood Culture - Final Blood Accuchecks Date 07/13/23 Date 07/12/23 Date 07/12/23 Date 07/12/23 Date 07/12/23 Time 21:00 Time 20:15 - Procedures and Test Procedures and Tests throughout Hospitalization: Therapy Orders & Screens 07/08/23 09:59 Oxygen Nasal Cannula 2 lpm Comment: Keep sat > 92%- for night use Diagnosis: Left lower extremity cellulitis 07/08/23 12:03 PT Eval & Treat ( Order) ONCE Reason for Eval:: pt not walking well Diagnosis: Left lower extremity cellulitis 07/11/23 12:30 PT Eval & Treat (MD Order) ONCE Reason for Eval:: UNNA BOOTS Diagnosis: Left lower extremity cellulitis Discharge Exam General Appearance: no apparent distress Neurologic Exam: alert, oriented x 3 Eye Exam: PERRL Ears, Nose, Throat Exam: normal ENT inspection Neck Exam: normal inspection Respiratory Exam: normal breath sounds, lungs clear Cardiovascular Exam: regular rate/rhythm, normal heart sounds Gastrointestinal/Abdomen Exam: soft, normal bowel sounds Extremity Exam: swelling (BLE edema L> R, LLE with cellulitis receeding original marked borders, legs wraped bilaterally) Skin Exam: other (BLE edema L> R, LLE with cellulitis receeding original marked borders, legs wraped bilaterally) Final Diagnosis/Problem List - Final Discharge Diagnosis/Problem (1) Cellulitis of left lower extremity Current Visit: Yes Status: Acute Code(s): L03.116 - CELLULITIS OF LEFT LOWER LIMB (2) Depression Current Visit: Yes Status: Chronic Code(s): F32.A - DEPRESSION, UNSPECIFIED (3) Hypertension Current Visit: Yes Status: Chronic Code(s): I10 - ESSENTIAL (PRIMARY) HYPERTENSION (4) Left ankle pain Current Visit: Yes Status: Chronic Code(s): M25.572 - PAIN IN LEFT ANKLE AND JOINTS OF LEFT FOOT (5) Obesity Current Visit: Yes Status: Acute Code(s): E66.9 - OBESITY, UNSPECIFIED (6) Oxygen desaturation during sleep Current Visit: Yes Status: Chronic Code(s): G47.34 - IDIO SLEEP RELATED NONOBSTRUCTIVE ALVEOLAR HYPOVENTILATION (7) Peripheral vascular disease Current Visit: Yes Status: Chronic Code(s): I73.9 - PERIPHERAL VASCULAR DISEASE, UNSPECIFIED (8) Type I diabetes mellitus Current Visit: Yes Status: Chronic - Discharge Disposition: DC TO ANY "OTHER" [facility] Condition: Stable Prescriptions: New Lactobacillus Acidophilus [Acidophilus TABLET] 1 tab PO DAILY tablet Potassium Chloride Tab* [Klor Con] 20 meq PO DAILY tablet Gabapentin [Neurontin ] 300 mg PO TID cap Doxycycline Hyclate 100 mg [Vibramycin 100 MG] 100 mg PO BID tablet Tizanidine HCl 4 mg [Zanaflex 4 MG] 4 mg PO Q6HPRN PRN tablet PRN Reason: Muscle Spasms Lisinopril 20 mg [Zestril 20 MG] 20 mg PO DAILY tablet Continue Aspirin 325 mg PO DAILY Insulin Lispro [Humalog] 20 units SQ TID Insulin Glargine,Hum.rec.anlog [Basaglar Kwikpen U-100] 50 unit SQ HS Insulin Glargine,Hum.rec.anlog [Basaglar Kwikpen U-100] 30 unit SQ QAM Lisinopril 20 mg [Zestril 20 MG] 20 mg PO DAILY Citalopram Hydrobromide 20 mg* [ceLEXa 20 MG] 20 mg PO DAILY Furosemide 20 mg [Lasix 20 mg] 20 mg PO DAILY Furosemide 20 mg [Lasix 20 mg] 20 mg PO HSPRN PRN PRN Reason: diuretic Instructions: Cellulitis (Skin Infection), Adult (DC) Additional Instructions: [facility] ORDERS: ADMIT TO [facility] 1800[facility] ADA DIET ACHS ACCU CHECKS PROSTAT 64 - 30 MLS TID WITH MEALS PT/OT EVAL AND TREAT SEE ATTACHED MED LIST Follow up with: SHAR GARCIA [NON-STAFF PHY W/O PRIVILEGES] - (need appointment set up within 7 days of discharge. ) SHILPA CORBIN MD [Primary Care Provider] - Call for Appointment Forms: Discharge Instructions, Patient Portal Information
[2023-07-13 11:44] VITALS: BP 130/77; PULSE 94; O2SAT 92
== END 2023-07-13 15:35 | DRG 603 ==
LOC: ED 17:24 → MED SURG 21:57 → OBSVTOIN 07-07 15:00
PROVIDERS: ADMIT Internal Medicine Critical Care Medicine; ATTEND Internal Medicine Critical Care Medicine
DX: L03.116 Cellulitis of left lower limb (principal); E10.9 Type 1 diabetes mellitus without complications; I10 Essential (primary) hypertension; I73.9 Peripheral vascular disease, unspecified; W18.30XA Fall on same level, unspecified, initial encounter; R60.0 Localized edema; F32.A Depression, unspecified; M25.572 Pain in left ankle and joints of left foot; E66.9 Obesity, unspecified; G47.34 Idiopathic sleep related nonobstructive alveolar hypoventilation; I25.10 Atherosclerotic heart disease of native coronary artery without angina pectoris; Z79.899 Other long term (current) drug therapy; Z20.828 Contact with and (suspected) exposure to other viral communicable diseases
CPT/HCPCS: 36415; 71045; 73610; 80053; 80202; 82947; 83036; 83605; 83735; 84145; 84550; 85025; 85027; 87040; 93971; 94760; 96365; 96374; 96375; 99285; G0378; J1650; J1817; J1940; J2270; J2405; J2543; Q3014; 97110-GP; A9270-GY; J3370

== ENCOUNTER 2023-07-31 11:53 | Observation (INO) | payer OTHER ==
[2023-07-31] MEDS: Sodium Chloride 0.9% 1000 ML 1,000 ML IV SCH ×2 (12:21→23:07)
[2023-07-31 12:26] LABS: Absolute Neutrophil Ct (ANC) 4.53 x10^3/uL (1.4-6.9); BASOPHIL % 0.5 % (0.0-0.4); Basophil (Absolute #) 0.04 x10^3/uL (0-0.4); Eosinophil % 3.8 % (0.00-5.0); Eosinophil (Absolute #) 0.28 x10^3/uL (0-0.5); Hematocrit 42.5 % (42-50); Hemoglobin 12.9 g/dL (12.5-18.0); IMMATURE GRAN # 0.02 x10^3u/L (0.00-0.03); IMMATURE GRAN % 0.3 % (0.00-0.4); Lymphocyte (Absolute #) 1.86 x10^3/uL (1.0-4.6); Mean Cell Volume 86.7 fL (78-100); Mean Corpuscular Hemoglobin 26.3 pg (26-32); Mean Corpuscular Hgb Concent. 30.4 g/dL (32-36); Mean Platelet Volume 9.6 fL (7.5-11.0); Monocytes % 9.4 % (0.0-12.0); Platelet Count 294 x10^3/uL (150-450); Red Cell Distribution Width 16.6 % (11.5-14.0); White Blood Count 7.4 x10^3/uL (4.0-10.5)
[2023-07-31 12:42] LABS: ALBUMIN 3.4 g/dL (3.5-5.0); ALKALINE PHOSPHATASE 141 U/L (38-126); ANION GAP 6.7 MEQ/L (5-15); BLOOD UREA NITROGEN 17 mg/dL (9-20); CHLORIDE 102 mmol/L (98-107); Calcium 8.2 mg/dL (8.4-10.2); Carbon Dioxide 33 mmol/L (22-30); Creatinine 1 0.87 mg/dL (0.66-1.25); EST GLOMERULAR FILTRATION RATE > 60.0 ML/MIN; Glucose 156 mg/dL (74-106); Potassium 4.1 mmol/L (3.5-5.1); SGOT/AST 38 U/L (17-59); SGPT/ALT 27 U/L (0-50); SODIUM 138 mmol/L (137-145)
--- NOTE | 2023-07-31 13:21 | XRAY ---
Indication: Left lateral leg mass. Targeted soft tissue ultrasound lateral to left knee demonstrates subcutaneous fluid collection measuring 16 x 3.1 x 12.6 cm with low-level internal echoes and no abnormal color perfusion. Rule out hematoma. Doubt abscess since no hyperemic color flow to suggest inflammatory/infectious process. No other focal solid/cystic soft tissue mass.
--- NOTE | 2023-07-31 15:13 | ERPHSYRPT ---
- History of Present Illness Time Seen by Provider: 07/31/23 12:05 Source: patient, EMS Exam Limitations: no limitations Patient Subjective Stated Complaint: PT HERE FOR REDNESS,SWELLING TO LEFT LOWER LEG, HE HAS BEEN TREATING LEG WITH ANTIBOITCS UNTIL 4 DAYS AGO, HE IS IN THE HALFWAY FOR ANTIBOTICS, AND REHAB Triage Nursing Assessment: PT ALERT, ARRIVED PER AMBULANCE, PIVOTED FROM COT TO BED WITH ASSIST OF ONE, UNSTEADY ON FEET. HAS REDNESS AND SWELLING TO LEFT LOWER LEG Physician History: Patient is a 52-year-old white male who presents by ambulance from the skilled nursing where he has been treated for cellulitis. His antibiotic therapy consist of vancomycin and a cephalosporin. After the antibiotics were stopped 14 days ago they noted the development of a mass in the proximal left lateral leg and concern for recurrent cellulitis or abscess cause them to send him to the ER. Quality: throbbing Severity of Pain-Max: moderate Severity of Pain-Current: moderate Lower Extremities Pain: leg: left (Swollen area proximal left leg laterally) Allergies/Adverse Reactions: No Known Drug Allergies Allergy (Verified 07/31/23 11:55) Home Medications: Aspirin 325 mg PO DAILY 07/16/14 [History] Insulin Lispro [Humalog] 20 units SQ TID 07/16/14 [History] Citalopram Hydrobromide 20 mg* [ceLEXa 20 MG] 20 mg PO DAILY 07/07/23 [History] Furosemide 20 mg [Lasix 20 mg] 20 mg PO DAILY 07/07/23 [History] Furosemide 20 mg [Lasix 20 mg] 20 mg PO HS 07/07/23 [History] Insulin Glargine [Lantus Insulin] 30 units 07/31/23 [History] Insulin Glargine [Lantus Insulin] 50 unit SQ HS 07/31/23 [History] Miconazole Nitrate 25 gm MC BID 07/31/23 [History] Tizanidine HCl 4 mg [Zanaflex 4 MG] 4 mg PO Q4H PRN PRN 07/31/23 [History] Hx Tetanus, Diphtheria Vaccination/Date Given: Yes Hx Influenza Vaccination/Date Given: No Hx Pneumococcal Vaccination/Date Given: No Immunizations Up to Date: Yes Travel Risk - International Travel Have you traveled outside of the country in past 3 weeks: No - Coronavirus Screening Are you exhibiting any of the following symptoms?: No Close contact with a COVID-19 positive Pt in past 14-21 Days: No - Vaccine Status Have you recieved a Covid-19 vaccination: Yes 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 - Vaccination Dates Date of 2cond Vaccination (if applicable): na Dates if Unknown: na - Review of Systems Constitutional: No Fever, No Chills Eyes: No Symptoms Ears, Nose, & Throat: No Symptoms Respiratory: No Cough, No Dyspnea Cardiac: No Chest Pain, No Edema, No Syncope Abdominal/Gastrointestinal: No Abdominal Pain, No Nausea, No Vomiting, No Diarrhea Genitourinary Symptoms: No Dysuria Musculoskeletal: Other (Approximately 12 cm x 15 cm collection of fluid or pus lateral aspect of the lower left leg), No Back Pain, No Neck Pain Skin: Other (Possible abscess or fluid collection left leg), No Rash Neurological: No Dizziness, No Focal Weakness, No Sensory Changes Psychological: No Symptoms Endocrine: No Symptoms All Other Systems: Reviewed and Negative - Past Medical History Pertinent Past Medical History: Yes Neurological History: No Pertinent History ENT History: No Pertinent History Cardiac History: Coronary Artery Disease Respiratory History: No Pertinent History Endocrine Medical History: Diabetes Type I Musculoskeletal History: Other History: No Pertinent History Psycho-Social History: No Pertinent History Male Reproductive Disorders: No Pertinent History Other Medical History: PT HAS VASCULAR INSUFFICENCY BILAT LOWER LEGS AND HAS BEEN REFERRED TO [place] FOR SURGERY, UNSTEADY, CELLULITIS - Past Surgical History Past Surgical History: Yes Neuro Surgical History: No Pertinent History Cardiac: No Pertinent History Respiratory: No Pertinent History Gastrointestinal: No Pertinent History Genitourinary: No Pertinent History Musculoskeletal: No Pertinent History Male Surgical History: No Pertinent History Other Surgical History: artificial R EYE - Social History Smoking Status: Never smoker Exposure to second hand smoke: No Drug Use: none Patient Lives Alone: No - Nursing Vital Signs Nursing Vital Signs: Initial Vital Signs Temperature 97.0 F 07/31/23 11:56 Pulse Rate 98 H 07/31/23 11:56 Respiratory Rate 18 07/31/23 11:56 Blood Pressure 179/75 07/31/23 11:56 O2 Sat by Pulse Oximetry 97 07/31/23 11:56 Pain Scale Pain Intensity 2 - Physical Exam General Appearance: alert, obese Eyes, Ears, Nose, Throat Exam: moist mucous membranes Neck Exam: non-tender, supple Cardiovascular/Respiratory Exam: chest non-tender, normal breath sounds, regular rate/rhythm, no respiratory distress Gastrointestinal/Abdominal Exam: non-tender, guarding Back Exam: normal inspection, No vertebral tenderness Legs Exam: left leg: pain (Mass proximal left leg lateral just below the knee), soft tissue tenderness, swelling Neuro/Tendon Exam: normal sensation, normal motor functions Mental Status Exam: alert, oriented x 3, cooperative Skin Exam: normal color, warm, dry SpO2 Interpretation: normal SpO2: 98 O2 Delivery: Room Air - Course Nursing assessment & vital signs reviewed: Yes - CT Exams Lower Extremity CT Interpretation: Tele-radiologist Report - Radiology Ultrasound Exam Venous Lower Extremity Ultrasound: tele radiology report, Other (15 x 12 cm mass appears to be fluid or pus filled left lower leg) Ordered Tests: Active Orders 24 hr Category Date Time Status IV Insertion STAT Care 07/31/23 11:59 Active EXTREMITY NON VASCULAR [US] Stat Exams 07/31/23 12:06 Completed LOWER EXTREMITY WO CONTRAST [CT] Stat Exams 07/31/23 13:08 Taken BLOOD CULTURE Stat Lab 07/31/23 13:15 Received CBC W DIFF Stat Lab 07/31/23 12:00 Completed CMP Stat Lab 07/31/23 12:00 Completed CULTURE,WOUND Stat Lab 07/31/23 13:14 Received Lactic Acid Stat Lab 07/31/23 12:03 Completed UA W/RFX UR CULTURE Stat Lab 07/31/23 12:02 Ordered Urine Triage Profile Stat Lab 07/31/23 11:59 Ordered Medication Summary Generic Name Dose Route Start Last Admin Trade Name Freq PRN Reason Stop Dose Admin Sodium Chloride 1,000 mls @ 50 mls/hr 07/31/23 12:00 07/31/23 12:21 Sodium Chloride 0.9% 1000 Ml IV 08/30/23 11:59 50 mls/hr .Q20H SHARON Administration Lab/Rad Data: Laboratory Result Diagrams 07/31/23 12:00 07/31/23 12:00 Laboratory Results 07/31/23 07/31/23 07/31/23 Range/Units 12:03 12:00 12:00 WBC 7.4 (4.0-10.5) x10^3/uL RBC 4.90 (4.1-5.6) x10^6/uL Hgb 12.9 (12.5-18.0) g/dL Hct 42.5 (42-50) % MCV 86.7 (78-100) fL MCH 26.3 (26-32) pg MCHC 30.4 L (32-36) g/dL RDW 16.6 H (11.5-14.0) % Plt Count 294 (150-450) x10^3/uL MPV 9.6 (7.5-11.0) fL Gran % 61.0 (36.0-66.0) % Immature Gran % (Auto) 0.3 (0.00-0.4) % Nucleat RBC Rel Count 0.0 (0.00-0.1) % Eos # (Auto) 0.28 (0-0.5) x10^3/uL Immature Gran # (Auto) 0.02 (0.00-0.03) x10^3u/L Absolute Lymphs (auto) 1.86 (1.0-4.6) x10^3/uL Absolute Monos (auto) 0.70 (0.0-1.3) x10^3/uL Absolute Nucleated RBC 0.00 (0.00-0.01) x10^3u/L Lymphocytes % 25.0 (24.0-44.0) % Monocytes % 9.4 (0.0-12.0) % Eosinophils % 3.8 (0.00-5.0) % Basophils % 0.5 (0.0-0.4) % Absolute Granulocytes 4.53 (1.4-6.9) x10^3/uL Basophils # 0.04 (0-0.4) x10^3/uL Sodium 138 (137-145) mmol/L Potassium 4.1 (3.5-5.1) mmol/L Chloride 102 (98-107) mmol/L Carbon Dioxide 33 H (22-30) mmol/L Anion Gap 6.7 (5-15) MEQ/L BUN 17 (9-20) mg/dL Creatinine 0.87 (0.66-1.25) mg/dL Estimated GFR > 60.0 ML/MIN Glucose 156 H (74-106) mg/dL Lactic Acid 1.4 (0.4-2.0) Calcium 8.2 L (8.4-10.2) mg/dL Total Bilirubin 1.00 (0.2-1.3) mg/dL AST 38 (17-59) U/L ALT 27 (0-50) U/L Alkaline Phosphatase 141 H (38-126) U/L Serum Total Protein 7.0 (6.3-8.2) g/dL Albumin 3.4 L (3.5-5.0) g/dL - Progress Progress: unchanged Discussed with Dr.: Valentino, Other (Dr. Naidu) Will see patient in: hospital (observation) Medical Desision Making - Independent Historian Additional History obtained from: EMS - Discussion of managment Care discussed with:: specialist (Dr. John Paul Zayas) Agreed on:: Treatment plan, decision to admit Will see patient: in hospital - Diagnostic Testing Diagnostic test were ordered, analyzed, and reviewed by me: Yes Radiological Interpretation: Reviewed by me - Risk of complications The pt has a mod risk of morbidity or mortality based on: Need for minor surgical intervention in patient with know risk factors - Departure Departure Disposition: Observation Clinical Impression: Abscess of left lower extremity Condition: Stable Critical Care Time: No Referrals: SHILPA CORBIN MD [Primary Care Provider] - Follow up/PCP as directed
--- NOTE | 2023-07-31 15:33 | XRAY ---
CLINICAL HISTORY:Mass left leg COMPARISON:None. TECHNIQUE:Thin axial images of the left leg without IV contrast were obtained along with coronal and sagittal reconstructions. FINDINGS: Extensive edematous changes of the subcutaneous tissues all around the whole leg. A well-defined subcutaneous collection was seen on the anteromedial aspect of the upper leg, showing high-density turbid fluid content and measuring about 3 X 9 X 14 cm (AP x T x Ht). Normal scanned muscles and intermuscular fat planes. Intact neurovascular bundles. Atherosclerotic mural calcification of the leg arteries was noted. Multiple calcific densities are seen subcutaneously in the leg. Intact cortical outline and normal bone marrow density of the scanned bones. No evidence of osteomyelitis. IMPRESSION: Picture highly suggesting extensive cellulitis with possible abscess formation. Electronically Signed by: Chencho Mena MD. (07/31/2023 14:32:42 HUMAN RESOURCE CONSULTANT)
--- NOTE | 2023-07-31 16:22 | PCM.HP ---
History of Present Illness - Chief Complaint Chief Complaint: Abscess left lower leg Date: 07/31/23 History of Present Illness: is a 52 year old male with a hx of Type I DM, CAD, vascular insufficiency, and artificial right eye. He presented by ambulance from the skilled nursing where he has been treated for cellulitis. His antibiotic therapy consist of vancomycin and a cephalosporin. After the antibiotics were stopped 14 days ago they noted the development of a mass in the proximal left lateral leg and concern for recurrent cellulitis or abscess cause them to send him to the ER. He started noticing sxs 2 days ago. He reports swelling only, no pain, or redness. White count is normal. Plan is for surgery to do I&D this evening if needed. He denies any further concerns at this time. - Review of Systems Constitutional: No Fever, No Chills Eyes: No Symptoms Ears, Nose, & Throat: No Symptoms Respiratory: No Cough, No Short Of Breath Cardiac: No Chest Pain, No Edema, No Syncope Abdominal/Gastrointestinal: No Abdominal Pain, No Nausea, No Vomiting, No Diarrhea Genitourinary Symptoms: No Dysuria Musculoskeletal: No Back Pain, No Neck Pain Skin: Other (Left lower extremity edema near calf), No Rash Neurological: No Dizziness, No Focal Weakness, No Sensory Changes Psychological: No Symptoms Endocrine: No Symptoms Hematologic/Lymphatic: No Symptoms Immunological/Allergic: No Symptoms Medications & Allergies Home Medications: Home Medication List Aspirin 325 mg PO DAILY 07/16/14 [History Confirmed 07/31/23] Insulin Lispro [Humalog] 20 units SQ TID 07/16/14 [History Confirmed 07/31/23] Citalopram Hydrobromide 20 mg* [ceLEXa 20 MG] 20 mg PO DAILY 07/07/23 [History Confirmed 07/31/23] Furosemide 20 mg [Lasix 20 mg] 20 mg PO DAILY 07/07/23 [History Confirmed 07/31/23] Furosemide 20 mg [Lasix 20 mg] 40 mg PO HS 07/07/23 [History Confirmed 07/31/23] Gabapentin [Neurontin ] 300 mg PO TID cap 07/13/23 [Rx Confirmed 07/31/23] Lactobacillus Acidophilus [Acidophilus TABLET] 1 tab PO DAILY tablet 07/13/23 [Rx Confirmed 07/31/23] Lisinopril 20 mg [Zestril 20 MG] 20 mg PO DAILY tablet 07/13/23 [Rx Confirmed 07/31/23] Potassium Chloride Tab* [Klor Con] 20 meq PO DAILY tablet 07/13/23 [Rx Confirmed 07/31/23] Insulin Glargine [Lantus Insulin] 24 units SQ QAM 07/31/23 [History Confirmed 07/31/23] Insulin Glargine [Lantus Insulin] 40 unit SQ HS 07/31/23 [History Confirmed 07/31/23] Miconazole Nitrate 25 gm MC BID 07/31/23 [History Confirmed 07/31/23] Neomy Sulf/Bacitra/Polymyxin * [Neosporin Opth Oint 3.5 GM] 1 applic TOP Q6H PRN PRN 07/31/23 [History Confirmed 07/31/23] Tizanidine HCl 4 mg [Zanaflex 4 MG] 4 mg PO Q4H PRN PRN 07/31/23 [History Confirmed 07/31/23] Allergies/Adverse Reactions: Allergies Allergy/AdvReac Type Severity Reaction Status Date / Time No Known Drug Allergies Allergy Verified 07/31/23 11:55 - Past Medical History Past Medical History: Yes Neurological History: No Pertinent History ENT History: No Pertinent History Cardiac History: Coronary Artery Disease Respiratory History: No Pertinent History Endocrine Medical History: Diabetes Type I Musculoskelatal History: Other GI Medical History: No Pertinent History History: No Pertinent History Pyscho-Social History: No Pertinent History Male Reproductive Disorders: No Pertinent History Comment: PT HAS VASCULAR INSUFFICENCY BILAT LOWER LEGS AND HAS BEEN REFERRED TO [place] FOR SURGERY, UNSTEADY, CELLULITIS - Past Surgical History Past Surgical History: Yes Neuro Surgical History: No Pertinent History Cardiac History: No Pertinent History Respiratory Surgery: No Pertinent History GI Surgical History: No Pertinent History Genitourinary Surgical Hx: No Pertinent History Musculskeletal Surgical Hx: No Pertinent History Male Surgical History: No Pertinent History Other Surgical History: artificial R EYE - Social History Smoking Status: Never smoker Exposure to second hand smoke: No Alcohol: None Drug Use: none - Physical Exam Vital Signs: Vital Signs - 24 hr Temp Pulse Resp BP Pulse Ox 07/31/23 15:48 133/88 98 07/31/23 15:20 98 07/31/23 14:59 78 18 133/88 98 07/31/23 13:13 78 18 128/74 97 07/31/23 11:56 97.0 F 98 H 18 179/75 97 General Appearance: no apparent distress, alert, obese Neurologic Exam: alert, oriented x 3, cooperative, normal mood/affect, nml cerebellar function, nml station & gait, sensation nml, No motor deficits Eye Exam: PERRL/EOMI, eyes nml inspection Ears, Nose, Throat Exam: normal ENT inspection, TMs normal, pharynx normal, moist mucous membranes Neck Exam: normal inspection, non-tender, supple, full range of motion Respiratory Exam: normal breath sounds, lungs clear, No respiratory distress Cardiovascular Exam: regular rate/rhythm, normal heart sounds, normal peripheral pulses Gastrointestinal/Abdomen Exam: soft, normal bowel sounds, No tenderness, No mass Back Exam: normal inspection, normal range of motion, No CVA tenderness, No vertebral tenderness Extremity Exam: normal inspection, normal range of motion, pelvis stable Skin Exam: normal color, warm, dry, other (LLE edema- non-pitting, no erythema, pain with palpation), No rash Lymphatic Exam: No adenopathy Results - Labs Lab/Micro Results: Lab Results-Last 24 Hours 07/31/23 07/31/23 07/31/23 Range/Units 12:00 12:00 12:03 WBC 7.4 (4.0-10.5) x10^3/uL RBC 4.90 (4.1-5.6) x10^6/uL Hgb 12.9 (12.5-18.0) g/dL Hct 42.5 (42-50) % MCV 86.7 (78-100) fL MCH 26.3 (26-32) pg MCHC 30.4 L (32-36) g/dL RDW 16.6 H (11.5-14.0) % Plt Count 294 (150-450) x10^3/uL MPV 9.6 (7.5-11.0) fL Gran % 61.0 (36.0-66.0) % Immature Gran % (Auto) 0.3 (0.00-0.4) % Nucleat RBC Rel Count 0.0 (0.00-0.1) % Eos # (Auto) 0.28 (0-0.5) x10^3/uL Immature Gran # (Auto) 0.02 (0.00-0.03) x10^3u/L Absolute Lymphs (auto) 1.86 (1.0-4.6) x10^3/uL Absolute Monos (auto) 0.70 (0.0-1.3) x10^3/uL Absolute Nucleated RBC 0.00 (0.00-0.01) x10^3u/L Lymphocytes % 25.0 (24.0-44.0) % Monocytes % 9.4 (0.0-12.0) % Eosinophils % 3.8 (0.00-5.0) % Basophils % 0.5 (0.0-0.4) % Absolute Granulocytes 4.53 (1.4-6.9) x10^3/uL Basophils # 0.04 (0-0.4) x10^3/uL Sodium 138 (137-145) mmol/L Potassium 4.1 (3.5-5.1) mmol/L Chloride 102 (98-107) mmol/L Carbon Dioxide 33 H (22-30) mmol/L Anion Gap 6.7 (5-15) MEQ/L BUN 17 (9-20) mg/dL Creatinine 0.87 (0.66-1.25) mg/dL Estimated GFR > 60.0 ML/MIN Glucose 156 H (74-106) mg/dL Lactic Acid 1.4 (0.4-2.0) Calcium 8.2 L (8.4-10.2) mg/dL Total Bilirubin 1.00 (0.2-1.3) mg/dL AST 38 (17-59) U/L ALT 27 (0-50) U/L Alkaline Phosphatase 141 H (38-126) U/L Serum Total Protein 7.0 (6.3-8.2) g/dL Albumin 3.4 L (3.5-5.0) g/dL - Radiology Impressions Radiology Exams & Impressions: Radiology Procedures Category Date Time Status EXTREMITY NON VASCULAR [US] Stat Exams 07/31/23 12:06 Completed LOWER EXTREMITY WO CONTRAST [CT] Stat Exams 07/31/23 13:08 Completed Assessment/Plan (1) Abscess of left lower extremity Current Visit: Yes Status: Acute Assessment & Plan: - Start Ancef IV - LLE CT 07/31: IMPRESSION: Picture highly suggesting extensive cellulitis with possible abscess formation. - LLE US 07/31: Targeted soft tissue ultrasound lateral to left knee demonstrates subcutaneous fluid collection measuring 16 x 3.1 x 12.6 cm with low-level internal echoes and no abnormal color perfusion. Rule out hematoma. Doubt abscess since no hyperemic color flow to suggest inflammatory/infectious process. No other focal solid/cystic soft tissue mass. - surgery to evaluate for I&D if needed this evening Code(s): L02.416 - CUTANEOUS ABSCESS OF LEFT LOWER LIMB (2) Cellulitis of left lower extremity Current Visit: No Status: Acute Assessment & Plan: - recent hx with completed antibiotics - does not appear to cellulitis at this time Code(s): L03.116 - CELLULITIS OF LEFT LOWER LIMB (3) Obesity Current Visit: No Status: Acute Assessment & Plan: - advised diet control - Follow ADA diet plan Code(s): E66.9 - OBESITY, UNSPECIFIED (4) Hypertension Current Visit: No Status: Chronic Assessment & Plan: - controlled - continue home meds Code(s): I10 - ESSENTIAL (PRIMARY) HYPERTENSION (5) Peripheral vascular disease Current Visit: No Status: Chronic Assessment & Plan: - chronic Code(s): I73.9 - PERIPHERAL VASCULAR DISEASE, UNSPECIFIED (6) Type I diabetes mellitus Current Visit: No Status: Chronic Assessment & Plan: - uncontrolled - A1C 8.33 on 07/07. - Continue lantus, Humalog, start low dose S/S. Code status: Full D/C plan: 1-2 days
[2023-07-31] MEDS ORDERED: Zanaflex 4 MG PO PRN (17:09)
[2023-07-31] MEDS ORDERED: Decadron 4 MG INJ ONE (18:55)
[2023-07-31] MEDS ORDERED: TORAdol 30 mg Injection ONE (18:55)
[2023-07-31] MEDS ORDERED: Zofran 4 MG/2 ML VIAL ONE (18:55)
[2023-07-31] MEDS ORDERED: DIPRIVAN 200 MG/20 ML IV ONE ×2 (18:55→19:32)
[2023-07-31] MEDS ORDERED: Xylocaine-Mpf 2% 5 Ml Vial ONE (18:55)
[2023-07-31] MEDS ORDERED: Quelicin Fliptop 200 MG/10 ML ONE (18:56)
[2023-07-31] MEDS ORDERED: Sensorcaine 0.25% 10 ML ONE (18:59)
[2023-07-31] MEDS ORDERED: SUBLIMAZE 250 MCG/5 ML ONE (19:01)
[2023-07-31] MEDS ORDERED: KEFZOL 1 GM ONE (19:46)
[2023-07-31] MEDS ORDERED: Ephedrine Sulfate 50 MG/ML ONE (19:48)
[2023-07-31] MEDS ORDERED: DUONEB 0.5-3 MG/3 ml Neb IH ONE (21:20)
[2023-07-31] MEDS ORDERED: FEVERALL 650 MG PR PRN (21:54)
[2023-07-31] MEDS ORDERED: TYLENOL 325 MG PO PRN (21:54)
[2023-07-31] MEDS ORDERED: Zofran 4 MG/2 ML VIAL IV PRN (21:55)
[2023-07-31] MEDS ORDERED: Zofran 4 MG/2 ML VIAL IM PRN (21:55)
[2023-07-31] MEDS ORDERED: NON-FORMULARY ITEM (Insulin Lispro 100 UNIT/ML Ml) SQ SCH (22:00)
[2023-07-31] MEDS ORDERED: MICONAZOLE NITRATE MC SCH (22:00)
[2023-07-31] MEDS: LASIX 20 MG PO SCH (22:24)
[2023-07-31] MEDS: NYSTOP POWDER 15 GM TOP SCH (22:27)
[2023-07-31] MEDS: NEURONTIN PO SCH (22:27)
[2023-07-31] MEDS: Lantus Insulin SQ SCH (22:28)
[2023-07-31] MEDS: HUMALOG SQ PRN (22:29)
[2023-07-31] MEDS: KEFZOL 1 GM/50 ML PREMIX** 1 GM/50 ML IVPB IV SCH (23:03)
[2023-08-01] MEDS ORDERED: Tums EX 750 MG PO PRN (00:43)
[2023-08-01] MEDS: HUMALOG SQ PRN ×5 (02:24→22:44)
[2023-08-01 04:42] LABS: Hematocrit 46.7 % (42-50); Hemoglobin 13.9 g/dL (12.5-18.0); Mean Cell Volume 86.6 fL (78-100); Mean Corpuscular Hemoglobin 25.8 pg (26-32); Mean Corpuscular Hgb Concent. 29.8 g/dL (32-36); Mean Platelet Volume 9.6 fL (7.5-11.0); Platelet Count 302 x10^3/uL (150-450); Red Blood Count 5.39 x10^6/uL (4.1-5.6); White Blood Count 9.3 x10^3/uL (4.0-10.5)
[2023-08-01 05:32] LABS: ALBUMIN 3.8 g/dL (3.5-5.0); ALKALINE PHOSPHATASE 162 U/L (38-126); ANION GAP 17.1 MEQ/L (5-15); BLOOD UREA NITROGEN 24 mg/dL (9-20); CHLORIDE 99 mmol/L (98-107); Calcium 8.5 mg/dL (8.4-10.2); Carbon Dioxide 24 mmol/L (22-30); Creatinine 1 1.24 mg/dL (0.66-1.25); EST GLOMERULAR FILTRATION RATE > 60.0 ML/MIN; Glucose 370 mg/dL (74-106); Potassium 4.5 mmol/L (3.5-5.1); SGOT/AST 36 U/L (17-59); SGPT/ALT 30 U/L (0-50); SODIUM 135 mmol/L (137-145); Total Protein 7.4 g/dL (6.3-8.2)
[2023-08-01] MEDS: KEFZOL 1 GM/50 ML PREMIX** 1 GM/50 ML IVPB IV SCH ×3 (06:24→22:43)
[2023-08-01] MEDS: HUMALOG SQ SCH ×3 (06:56→17:05)
[2023-08-01] MEDS ORDERED: Zofran 4 MG/2 ML VIAL IVIM PRN (07:05)
[2023-08-01] MEDS ORDERED: NORCO 5/325 MG PO PRN (08:00)
[2023-08-01] MEDS: Lantus Insulin SQ SCH ×2 (09:07→22:44)
[2023-08-01] MEDS: Zestril 20 MG PO SCH (09:08)
[2023-08-01] MEDS: Acidophilus TABLET PO SCH (09:08)
[2023-08-01] MEDS: ENOXAPARIN SODIUM SQ SCH (09:08)
[2023-08-01] MEDS: LASIX 20 MG PO SCH ×2 (09:08→23:08)
[2023-08-01] MEDS: ceLEXa 20 MG PO SCH (09:08)
[2023-08-01] MEDS: NEURONTIN PO SCH ×3 (09:08→22:46)
[2023-08-01] MEDS: Klor Con PO SCH (09:08)
[2023-08-01] MEDS: NYSTOP POWDER 15 GM TOP SCH ×2 (09:43→22:46)
--- NOTE | 2023-08-01 09:51 | PCM.NOTE ---
Date and Time: 08/01/23930 Subjective Assessment: is a 52 year old male with a hx of Type I DM, CAD, vascular insufficiency, and artificial right eye. He presented by ambulance from the residential where he has been treated for cellulitis. His antibiotic therapy consist of vancomycin and a cephalosporin. After the antibiotics were stopped 14 days ago they noted the development of a mass in the proximal left lateral leg admitted for LLE abscess. S/P I&D PODS#1, patient with JOBY drain, doing well. Endorses mild pain and tightness at the left knee, but states this is improved since procedure. Plan is for finalization of cultures and discharge following to SNF for rehab. Denies fever, cough, sob, cp, abdominal pain, QUINTERO, dizziness, N/V/D. - Review of Systems Constitutional: No Symptoms Eyes: No Symptoms Ears, Nose, & Throat: No Symptoms Respiratory: No Symptoms Cardiac: Edema (BLE ) Abdominal/Gastrointestinal: No Symptoms Genitourinary Symptoms: No Symptoms Musculoskeletal: No Symptoms Skin: Other (h/o Cellulitis with recent treatment to LLE, improved. S/P I&D with LLE with JOBY drain sanguineous drainage) Neurological: No Symptoms Psychological: No Symptoms Objective Exam General Appearance: no apparent distress Neurologic Exam: alert, oriented x 3, cooperative Skin Exam: normal color Wound Assessment: Skin/Wound Assessment Wound/Incision Assessment Start: 07/31/23 15:48 Text: Status: Active Freq: Q4H Protocol: Document 08/01/23 07:41 CLIFF (Rec: 08/01/23 07:56 CLIFF [id number]) Wound/Incision Assessment Left Lower Other Wound Assessment Shift Assessment Wound Type Incision Wound Stage Unstageable Dressing Status Dry & Intact Drainage Amount Moderate Drainage Description Sanguineous Surrounding Tissue [place] Primary Dressing Gauze Pads Comment I&D incision with gauze pads and JOBY drain with small amount of red drainage. Left Upper Foot Drain Type JOBY drain Drainage Description Sanguineous Eye Exam: PERRL Neck Exam: normal inspection Respiratory Exam: normal breath sounds, lungs clear Cardiovascular Exam: regular rate/rhythm, normal heart sounds Gastrointestinal/Abdomen Exam: soft, normal bowel sounds Extremity Exam: other (h/o Cellulitis with recent treatment to LLE, improved. S/P I&D with LLE with JOBY drain sanguineous drainage) Back Exam: normal inspection Male Genitalia Exam: deferred Rectal Exam: deferred OBJECTIVE DATA Vital Signs: Vital Signs - 24 hr Temp Pulse Resp BP BP Pulse Ox 08/01/23 07:18 91 L 08/01/23 04:00 96.6 F 105 H 18 156/85 95 07/31/23 23:10 98 H 16 07/31/23 22:35 97.1 F 97 H 19 123/62 94 L 07/31/23 22:10 97 07/31/23 22:05 97.1 F 99 H 22 114/62 93 L 07/31/23 21:50 97.1 F 95 H 15 116/60 92 L 07/31/23 21:35 97.3 F 100 H 20 113/62 91 L 07/31/23 21:05 96 H 18 99 07/31/23 17:04 97.1 F 101 H 136/77 90 L 07/31/23 15:51 97.1 F 101 H 136/77 90 L 07/31/23 15:48 133/88 98 07/31/23 15:20 98 07/31/23 14:59 78 18 133/88 98 07/31/23 13:13 78 18 128/74 97 07/31/23 11:56 97.0 F 98 H 18 179/75 97 Pain Assessment - Last Documented Pain Intensity 0 Intake and Output: Intake & Output 07/29/23 07/30/23 07/31/23 08/01/23 11:59 11:59 11:59 11:59 Intake Total 600 Output Total 70 Balance 530 Weight 162 kg Lab Results: Lab Results-Last 24 Hours 07/31/23 07/31/23 07/31/23 Range/Units 12:00 12:00 12:03 WBC 7.4 (4.0-10.5) x10^3/uL RBC 4.90 (4.1-5.6) x10^6/uL Hgb 12.9 (12.5-18.0) g/dL Hct 42.5 (42-50) % MCV 86.7 (78-100) fL MCH 26.3 (26-32) pg MCHC 30.4 L (32-36) g/dL RDW 16.6 H (11.5-14.0) % Plt Count 294 (150-450) x10^3/uL MPV 9.6 (7.5-11.0) fL Gran % 61.0 (36.0-66.0) % Immature Gran % (Auto) 0.3 (0.00-0.4) % Nucleat RBC Rel Count 0.0 (0.00-0.1) % Eos # (Auto) 0.28 (0-0.5) x10^3/uL Immature Gran # (Auto) 0.02 (0.00-0.03) x10^3u/L Absolute Lymphs (auto) 1.86 (1.0-4.6) x10^3/uL Absolute Monos (auto) 0.70 (0.0-1.3) x10^3/uL Absolute Nucleated RBC 0.00 (0.00-0.01) x10^3u/L Lymphocytes % 25.0 (24.0-44.0) % Monocytes % 9.4 (0.0-12.0) % Eosinophils % 3.8 (0.00-5.0) % Basophils % 0.5 (0.0-0.4) % Absolute Granulocytes 4.53 (1.4-6.9) x10^3/uL Basophils # 0.04 (0-0.4) x10^3/uL Sodium 138 (137-145) mmol/L Potassium 4.1 (3.5-5.1) mmol/L Chloride 102 (98-107) mmol/L Carbon Dioxide 33 H (22-30) mmol/L Anion Gap 6.7 (5-15) MEQ/L BUN 17 (9-20) mg/dL Creatinine 0.87 (0.66-1.25) mg/dL Estimated GFR > 60.0 ML/MIN Glucose 156 H (74-106) mg/dL POC Glucometer (74 to 106) mg/dL Lactic Acid 1.4 (0.4-2.0) Calcium 8.2 L (8.4-10.2) mg/dL Total Bilirubin 1.00 (0.2-1.3) mg/dL AST 38 (17-59) U/L ALT 27 (0-50) U/L Alkaline Phosphatase 141 H (38-126) U/L Serum Total Protein 7.0 (6.3-8.2) g/dL Albumin 3.4 L (3.5-5.0) g/dL 07/31/23 07/31/23 07/31/23 Range/Units 16:41 20:56 22:00 WBC (4.0-10.5) x10^3/uL RBC (4.1-5.6) x10^6/uL Hgb (12.5-18.0) g/dL Hct (42-50) % MCV (78-100) fL MCH (26-32) pg MCHC (32-36) g/dL RDW (11.5-14.0) % Plt Count (150-450) x10^3/uL MPV (7.5-11.0) fL Gran % (36.0-66.0) % Immature Gran % (Auto) (0.00-0.4) % Nucleat RBC Rel Count (0.00-0.1) % Eos # (Auto) (0-0.5) x10^3/uL Immature Gran # (Auto) (0.00-0.03) x10^3u/L Absolute Lymphs (auto) (1.0-4.6) x10^3/uL Absolute Monos (auto) (0.0-1.3) x10^3/uL Absolute Nucleated RBC (0.00-0.01) x10^3u/L Lymphocytes % (24.0-44.0) % Monocytes % (0.0-12.0) % Eosinophils % (0.00-5.0) % Basophils % (0.0-0.4) % Absolute Granulocytes (1.4-6.9) x10^3/uL Basophils # (0-0.4) x10^3/uL Sodium (137-145) mmol/L Potassium (3.5-5.1) mmol/L Chloride (98-107) mmol/L Carbon Dioxide (22-30) mmol/L Anion Gap (5-15) MEQ/L BUN (9-20) mg/dL Creatinine (0.66-1.25) mg/dL Estimated GFR ML/MIN Glucose (74-106) mg/dL POC Glucometer 113 H 215 H 230 H (74 to 106) mg/dL Lactic Acid (0.4-2.0) Calcium (8.4-10.2) mg/dL Total Bilirubin (0.2-1.3) mg/dL AST (17-59) U/L ALT (0-50) U/L Alkaline Phosphatase (38-126) U/L Serum Total Protein (6.3-8.2) g/dL Albumin (3.5-5.0) g/dL 08/01/23 08/01/23 08/01/23 Range/Units 02:07 04:08 04:30 WBC 9.3 (4.0-10.5) x10^3/uL RBC 5.39 (4.1-5.6) x10^6/uL Hgb 13.9 (12.5-18.0) g/dL Hct 46.7 (42-50) % MCV 86.6 (78-100) fL MCH 25.8 L (26-32) pg MCHC 29.8 L (32-36) g/dL RDW 17.0 H (11.5-14.0) % Plt Count 302 (150-450) x10^3/uL MPV 9.6 (7.5-11.0) fL Gran % (36.0-66.0) % Immature Gran % (Auto) (0.00-0.4) % Nucleat RBC Rel Count (0.00-0.1) % Eos # (Auto) (0-0.5) x10^3/uL Immature Gran # (Auto) (0.00-0.03) x10^3u/L Absolute Lymphs (auto) (1.0-4.6) x10^3/uL Absolute Monos (auto) (0.0-1.3) x10^3/uL Absolute Nucleated RBC (0.00-0.01) x10^3u/L Lymphocytes % (24.0-44.0) % Monocytes % (0.0-12.0) % Eosinophils % (0.00-5.0) % Basophils % (0.0-0.4) % Absolute Granulocytes (1.4-6.9) x10^3/uL Basophils # (0-0.4) x10^3/uL Sodium (137-145) mmol/L Potassium (3.5-5.1) mmol/L Chloride (98-107) mmol/L Carbon Dioxide (22-30) mmol/L Anion Gap (5-15) MEQ/L BUN (9-20) mg/dL Creatinine (0.66-1.25) mg/dL Estimated GFR ML/MIN Glucose (74-106) mg/dL POC Glucometer 353 H 353 H (74 to 106) mg/dL Lactic Acid (0.4-2.0) Calcium (8.4-10.2) mg/dL Total Bilirubin (0.2-1.3) mg/dL AST (17-59) U/L ALT (0-50) U/L Alkaline Phosphatase (38-126) U/L Serum Total Protein (6.3-8.2) g/dL Albumin (3.5-5.0) g/dL 08/01/23 08/01/23 Range/Units 04:30 06:09 WBC (4.0-10.5) x10^3/uL RBC (4.1-5.6) x10^6/uL Hgb (12.5-18.0) g/dL Hct (42-50) % MCV (78-100) fL MCH (26-32) pg MCHC (32-36) g/dL RDW (11.5-14.0) % Plt Count (150-450) x10^3/uL MPV (7.5-11.0) fL Gran % (36.0-66.0) % Immature Gran % (Auto) (0.00-0.4) % Nucleat RBC Rel Count (0.00-0.1) % Eos # (Auto) (0-0.5) x10^3/uL Immature Gran # (Auto) (0.00-0.03) x10^3u/L Absolute Lymphs (auto) (1.0-4.6) x10^3/uL Absolute Monos (auto) (0.0-1.3) x10^3/uL Absolute Nucleated RBC (0.00-0.01) x10^3u/L Lymphocytes % (24.0-44.0) % Monocytes % (0.0-12.0) % Eosinophils % (0.00-5.0) % Basophils % (0.0-0.4) % Absolute Granulocytes (1.4-6.9) x10^3/uL Basophils # (0-0.4) x10^3/uL Sodium 135 L (137-145) mmol/L Potassium 4.5 (3.5-5.1) mmol/L Chloride 99 (98-107) mmol/L Carbon Dioxide 24 (22-30) mmol/L Anion Gap 17.1 H (5-15) MEQ/L BUN 24 H (9-20) mg/dL Creatinine 1.24 (0.66-1.25) mg/dL Estimated GFR > 60.0 ML/MIN Glucose 370 H (74-106) mg/dL POC Glucometer 316 H (74 to 106) mg/dL Lactic Acid (0.4-2.0) Calcium 8.5 (8.4-10.2) mg/dL Total Bilirubin 0.90 (0.2-1.3) mg/dL AST 36 (17-59) U/L ALT 30 (0-50) U/L Alkaline Phosphatase 162 H (38-126) U/L Serum Total Protein 7.4 (6.3-8.2) g/dL Albumin 3.8 (3.5-5.0) g/dL Radiology Exams: Radiology Procedures Category Date Time Status EXTREMITY NON VASCULAR [US] Stat Exams 07/31/23 12:06 Completed LOWER EXTREMITY WO CONTRAST [CT] Stat Exams 07/31/23 13:08 Completed Assessment/Plan (1) Abscess of left lower extremity Current Visit: Yes Status: Acute Assessment & Plan: - Start Ancef IV - LLE CT 07/31: IMPRESSION: Picture highly suggesting extensive cellulitis with possible abscess formation. - LLE US 07/31: Targeted soft tissue ultrasound lateral to left knee demonstrates subcutaneous fluid collection measuring 16 x 3.1 x 12.6 cm with low-level internal echoes and no abnormal color perfusion. Rule out hematoma. Doubt abscess since no hyperemic color flow to suggest inflammatory/infectious process. No other focal solid/cystic soft tissue mass. - surgery to evaluate for I&D if needed this evening 08/01: -S/P I&D 07/31/23, patient with JOBY drain, doing well post procedure -Cultures pending,continue cefazolin for now, follow cultures Code(s): L02.416 - CUTANEOUS ABSCESS OF LEFT LOWER LIMB (2) Cellulitis of left lower extremity Current Visit: No Status: Acute Assessment & Plan: - recent hx with completed antibiotics - does not appear to cellulitis at this time 08/01/23: -Will need f/u with ID on d/c Code(s): L03.116 - CELLULITIS OF LEFT LOWER LIMB (3) Hypertension Current Visit: No Status: Chronic Assessment & Plan: - controlled - continue home meds Code(s): I10 - ESSENTIAL (PRIMARY) HYPERTENSION (4) Peripheral vascular disease Current Visit: No Status: Chronic Assessment & Plan: - chronic Code(s): I73.9 - PERIPHERAL VASCULAR DISEASE, UNSPECIFIED (5) Type I diabetes mellitus Current Visit: No Status: Chronic Assessment & Plan: - uncontrolled - A1C 8.33 on 07/07. - Continue lantus, Humalog, start low dose S/S. (6) Obesity Current Visit: No Status: Acute Assessment & Plan: - advised diet control - Follow ADA diet plan Code(s): E66.9 - OBESITY, UNSPECIFIED
[2023-08-01] MEDS ORDERED: Ecotrin 325 MG PO SCH (10:00)
[2023-08-01] MEDS ORDERED: NON-FORMULARY ITEM (Aspirin [Aspirin] 325 MG Tablet) PO SCH (10:00)
[2023-08-01 12:21] LABS: Appearance Cloudy (Clear); Bacteria None Seen /HPF (None Seen); Bilirubin Negative (Negative); Blood Moderate (Negative); Epithelial Cells Few /HPF (None Seen); Glucose, Urine 500 mg/dL (Negative); Ketones Trace (Negative); Leukocyte Esterase Negative (Negative); Nitrite Negative (Negative); Ph 5.5 (4.6-8.0); Protein,Urine Dip 30 (Negative); RBC 21-50 /HPF (0-5); Specific Gravity >=1.030 (1.005-1.030); WBC 0-2 /HPF (0-5)
[2023-08-01 12:33] LABS: Amphetamine,Urine NEGATIVE (NEGATIVE); Barbiturate,Urine NEGATIVE (NEGATIVE); Benzodiazepine,Urine NEGATIVE (NEGATIVE); Cocaine,Urine NEGATIVE (NEGATIVE); Methadone,Urine NEGATIVE (NEGATIVE); Opiate,Urine NEGATIVE (NEGATIVE); PCP,Urine NEGATIVE (NEGATIVE); THC,Urine NEGATIVE (NEGATIVE)
[2023-08-01 12:41] LABS: ADD URINE CULTURE? YES (NO)
--- NOTE | 2023-08-01 14:52 | OP ---
SURGERY DATE/TIME: 07/31/20231916 PREOPERATIVE DIAGNOSIS: Abscess left lower extremity. POSTOPERATIVE DIAGNOSIS: Hematoma-abscess left lower extremity, large. PROCEDURE: I&D of large hematoma-abscess with culture left lower extremity. SURGEON: John Paul Zayas M.D. ANESTHESIA: General. COMPLICATIONS: None. ESTIMATED BLOOD LOSS: Nothing new. DRAINS: One. INDICATION: The patient has a large abscess on the left lower extremity that has been there a few days. It measured 12 x 8 cm. He was started on IV antibiotic. He was admitted. He had some cellulitis surrounding this. Intraoperative ultrasound reviewed and the lower edge of abscess was marked. DESCRIPTION OF PROCEDURE: General endotracheal tube anesthetic. Routine prep and drape. A transverse incision. A 16 gauge needle was placed and there was fluid, this had some pus in it and this was sent for culture. Incision was made and cautery was used. The clamp is placed. Suction was placed and a large circular like clot was evacuated. The flap retracted down against the residual tissue nicely. It was irrigated with normal saline solution. It was predominantly hematoma but there was some purulence and the purulence was passenger relations representative culture out of the original syringe. A drain was placed. It was secured with 2-0 PDS and rim extended at the top of edge and was totally dependent, looked excellent. Sterile dressing applied. The patient tolerated the procedure satisfactory.
[2023-08-01] MEDS: Triple Antibiotic Ointment TP PRN (22:45)
[2023-08-02] MEDS: KEFZOL 1 GM/50 ML PREMIX** 1 GM/50 ML IVPB IV SCH ×2 (06:19→14:22)
--- NOTE | 2023-08-02 07:13 | PCM.NOTE ---
Date and Time: 08/02/23 0709 Subjective Assessment: is a 52 year old male with a hx of Type I DM, CAD, vascular insufficiency, and artificial right eye. He presented by ambulance from the [facility] where he has been treated for cellulitis. His antibiotic therapy consist of vancomycin and a cephalosporin. After the antibiotics were stopped 14 days ago they noted the development of a mass in the proximal left lateral leg admitted for LLE abscess. S/P I&D PODS#2, patient with JOBY drain, doing well. Endorses mild pain and tightness at the left knee, but states this is improved since procedure. Drain with moderate drainage. Cultures NGTD. Plan for discharge to SNF for rehab. Denies fever, cough, sob, cp, abdominal pain, QUINTERO, dizziness, N/V/D. - Review of Systems Constitutional: No Symptoms Eyes: No Symptoms Ears, Nose, & Throat: No Symptoms Respiratory: No Symptoms Cardiac: No Symptoms Abdominal/Gastrointestinal: No Symptoms Genitourinary Symptoms: No Symptoms Musculoskeletal: No Symptoms Skin: Cellulitis, Other (BLE edema/ LLE with JOBY drain) Neurological: No Symptoms Psychological: No Symptoms Endocrine: No Symptoms Hematologic/Lymphatic: No Symptoms Objective Exam General Appearance: no apparent distress Neurologic Exam: alert, oriented x 3, cooperative Skin Exam: normal color Wound Assessment: Skin/Wound Assessment Wound/Incision Assessment Start: 07/31/23 15:48 Text: Status: Active Freq: Q4H Protocol: Document 08/02/23 04:00 RS (Rec: 08/02/23 04:21 [id number]) Wound/Incision Assessment Left Lower Other Wound Assessment Shift Assessment Wound Type Incision Wound Stage Unstageable Dressing Status Dry & Intact Drainage Amount Minimal Drainage Description Serosanguineous Drainage Odor None/Absent General Appearance Well Approximated Surrounding Tissue [place] Primary Dressing Gauze Pads Left Upper Foot Drain Type JOBY drain Comment Drain is midway between foot amd knee joint with small amount of red drainage. Eye Exam: PERRL Ears, Nose, Throat Exam: normal ENT inspection Neck Exam: normal inspection Respiratory Exam: normal breath sounds, lungs clear Cardiovascular Exam: regular rate/rhythm, normal heart sounds Gastrointestinal/Abdomen Exam: soft, normal bowel sounds Extremity Exam: other (BLE edema with LLE abscess/ JOBY drain in place) Back Exam: normal inspection Male Genitalia Exam: deferred Rectal Exam: deferred OBJECTIVE DATA Vital Signs: Vital Signs - 24 hr Temp Pulse Resp BP Pulse Ox 08/02/23 03:49 97.7 F 95 H 24 119/58 94 L 08/01/23 23:53 97.1 F 79 24 123/57 94 L 08/01/23 19:39 97 08/01/23 19:14 97.6 F 71 22 125/64 93 L 08/01/23 15:40 97.6 F 79 20 120/86 93 L 08/01/23 12:00 97.6 F 97 H 20 98/53 94 L 08/01/23 07:18 91 L Pain Assessment - Last Documented Pain Intensity 2 Intake and Output: Intake & Output 07/30/23 07/31/23 08/01/23 08/02/23 11:59 11:59 11:59 11:59 Intake Total 600 1550 Output Total 70 800 Balance 530 750 Weight 162 kg Lab Results: Lab Results-Last 24 Hours 08/01/23 08/01/23 08/01/23 Range/Units 11:47 12:02 12:02 POC Glucometer 300 H (74 to 106) mg/dL Urine Color Dark Yellow (Yellow) Urine Appearance Cloudy A (Clear) Urine pH 5.5 (4.6-8.0) Ur Specific [place] >=1.030 A (1.005-1.030) Urine Protein 30 (Negative) Urine Glucose (UA) 500 A (Negative) mg/dL Urine Ketones Trace A (Negative) Urine Blood Moderate A (Negative) Urine Nitrite Negative (Negative) Urine Bilirubin Negative (Negative) Urine Urobilinogen 1.0 A (0.2) mg/dL Ur Leukocyte Esterase Negative (Negative) U Hyaline Cast (Auto) 11-20 (0-2) /LPF Urine Microscopic RBC 21-50 A (0-5) /HPF Urine Microscopic WBC 0-2 (0-5) /HPF Ur Epithelial Cells Few (None Seen) /HPF Urine Bacteria None Seen (None Seen) /HPF Urine Culture Reflexed YES (NO) Urine Opiates Level NEGATIVE (NEGATIVE) Ur Methadone NEGATIVE (NEGATIVE) Urine Barbiturates NEGATIVE (NEGATIVE) Ur Phencyclidine (PCP) NEGATIVE (NEGATIVE) Urine Amphetamine NEGATIVE (NEGATIVE) U Benzodiazepine Level NEGATIVE (NEGATIVE) Urine Cocaine NEGATIVE (NEGATIVE) Urine Marijuana (THC) NEGATIVE (NEGATIVE) 08/01/23 08/01/23 08/02/23 Range/Units 15:51 21:03 07:02 POC Glucometer 445 H 243 H 100 (74 to 106) mg/dL Urine Color (Yellow) Urine Appearance (Clear) Urine pH (4.6-8.0) Ur Specific [place] (1.005-1.030) Urine Protein (Negative) Urine Glucose (UA) (Negative) mg/dL Urine Ketones (Negative) Urine Blood (Negative) Urine Nitrite (Negative) Urine Bilirubin (Negative) Urine Urobilinogen (0.2) mg/dL Ur Leukocyte Esterase (Negative) U Hyaline Cast (Auto) (0-2) /LPF Urine Microscopic RBC (0-5) /HPF Urine Microscopic WBC (0-5) /HPF Ur Epithelial Cells (None Seen) /HPF Urine Bacteria (None Seen) /HPF Urine Culture Reflexed (NO) Urine Opiates Level (NEGATIVE) Ur Methadone (NEGATIVE) Urine Barbiturates (NEGATIVE) Ur Phencyclidine (PCP) (NEGATIVE) Urine Amphetamine (NEGATIVE) U Benzodiazepine Level (NEGATIVE) Urine Cocaine (NEGATIVE) Urine Marijuana (THC) (NEGATIVE) Radiology Exams: Radiology Procedures Category Date Time Status EXTREMITY NON VASCULAR [US] Stat Exams 07/31/23 12:06 Completed LOWER EXTREMITY WO CONTRAST [CT] Stat Exams 07/31/23 13:08 Completed Multi-Disciplinary Progress Notes: Multi-Disciplinary Progress Notes 08/01/23 12:02 Case Management Note by Linda Darnell CLINICALS FAXED TO [facility] SO THEY CAN RESTART PRECERT PROCESS FOR PATIENT TO RETURN Initialized on 08/01/23 12:02 - END OF NOTE 08/01/23 10:09 Case Management Note by Linda Darnell PATIENT WILL NEED NEW PRECERT TO RETURN TO [facility] AT TIME OF DC. Initialized on 08/01/23 10:09 - END OF NOTE Assessment/Plan (1) Abscess of left lower extremity Current Visit: Yes Status: Acute Assessment & Plan: - Start Ancef IV - LLE CT 07/31: IMPRESSION: Picture highly suggesting extensive cellulitis with possible abscess formation. - LLE US 07/31: Targeted soft tissue ultrasound lateral to left knee demonstrates subcutaneous fluid collection measuring 16 x 3.1 x 12.6 cm with low-level internal echoes and no abnormal color perfusion. Rule out hematoma. Doubt abscess since no hyperemic color flow to suggest inflammatory/infectious process. No other focal solid/cystic soft tissue mass. - surgery to evaluate for I&D if needed this evening 08/01: -S/P I&D 07/31/23, patient with JOBY drain, doing well post procedure 08/02: -S/P I&D PODS#2, JOBY drain still in place, Blood and urine cultures NGTD, wound culture x 1 NGTD -PT eval, will need precert for SNF readmission -Continue IV abx until d/c, will d/c with cefdinir/ doxycycline Code(s): L02.416 - CUTANEOUS ABSCESS OF LEFT LOWER LIMB (2) Cellulitis of left lower extremity Current Visit: No Status: Acute Assessment & Plan: - recent hx with completed antibiotics - does not appear to cellulitis at this time 08/01/23: -Will need f/u with ID on d/c Code(s): L03.116 - CELLULITIS OF LEFT LOWER LIMB (3) Hypertension Current Visit: No Status: Chronic Assessment & Plan: - controlled - continue home meds Code(s): I10 - ESSENTIAL (PRIMARY) HYPERTENSION (4) Peripheral vascular disease Current Visit: No Status: Chronic Assessment & Plan: - chronic Code(s): I73.9 - PERIPHERAL VASCULAR DISEASE, UNSPECIFIED (5) Type I diabetes mellitus Current Visit: No Status: Chronic Assessment & Plan: - uncontrolled - A1C 8.33 on 07/07. - Continue lantus, Humalog, start low dose S/S. (6) Obesity Current Visit: No Status: Acute Assessment & Plan: - advised diet control - Follow ADA diet plan Code(s): E66.9 - OBESITY, UNSPECIFIED
[2023-08-02 07:33] LABS: Absolute Neutrophil Ct (ANC) 6.96 x10^3/uL (1.4-6.9); BASOPHIL % 0.5 % (0.0-0.4); Basophil (Absolute #) 0.05 x10^3/uL (0-0.4); Eosinophil % 0.5 % (0.00-5.0); Eosinophil (Absolute #) 0.05 x10^3/uL (0-0.5); Hematocrit 40.7 % (42-50); Hemoglobin 12.3 g/dL (12.5-18.0); IMMATURE GRAN # 0.04 x10^3u/L (0.00-0.03); IMMATURE GRAN % 0.4 % (0.00-0.4); Lymphocyte (Absolute #) 2.45 x10^3/uL (1.0-4.6); Lymphocytes % 23.7 % (24.0-44.0); Mean Corpuscular Hemoglobin 26.3 pg (26-32); Mean Corpuscular Hgb Concent. 30.2 g/dL (32-36); Mean Platelet Volume 9.5 fL (7.5-11.0); Monocyte (Absolute #) 0.77 x10^3/uL (0.0-1.3); Monocytes % 7.5 % (0.0-12.0); Neutrophil % 67.4 % (36.0-66.0); Platelet Count 296 x10^3/uL (150-450); Red Blood Count 4.68 x10^6/uL (4.1-5.6); Red Cell Distribution Width 16.7 % (11.5-14.0); White Blood Count 10.3 x10^3/uL (4.0-10.5)
[2023-08-02 07:46] LABS: ALBUMIN 3.3 g/dL (3.5-5.0); ALKALINE PHOSPHATASE 115 U/L (38-126); BLOOD UREA NITROGEN 27 mg/dL (9-20); CHLORIDE 102 mmol/L (98-107); Calcium 8.4 mg/dL (8.4-10.2); Carbon Dioxide 34 mmol/L (22-30); Creatinine 1 1.05 mg/dL (0.66-1.25); EST GLOMERULAR FILTRATION RATE > 60.0 ML/MIN; Glucose 90 mg/dL (74-106); SGOT/AST 35 U/L (17-59); SGPT/ALT 24 U/L (0-50); SODIUM 140 mmol/L (137-145); Total Protein 6.7 g/dL (6.3-8.2)
[2023-08-02] MEDS: Acidophilus TABLET PO SCH (09:16)
[2023-08-02] MEDS: ceLEXa 20 MG PO SCH (09:16)
[2023-08-02] MEDS: Klor Con PO SCH (09:16)
[2023-08-02] MEDS: NEURONTIN PO SCH ×2 (09:16→14:23)
[2023-08-02] MEDS: LASIX 20 MG PO SCH (09:17)
[2023-08-02] MEDS: HUMALOG SQ SCH ×2 (09:17→09:20)
[2023-08-02] MEDS: Zestril 20 MG PO SCH (09:17)
[2023-08-02] MEDS: ENOXAPARIN SODIUM SQ SCH (09:17)
[2023-08-02] MEDS: Lantus Insulin SQ SCH (09:17)
[2023-08-02] MEDS: NYSTOP POWDER 15 GM TOP SCH (11:03)
[2023-08-02] MEDS: Triple Antibiotic Ointment TP PRN (11:04)
--- NOTE | 2023-08-02 14:42 | PCM.DS ---
Discharge Summary Date of Admission: 07/31/23 15:42 Date of Discharge: 08/02/23 Admitting Physician: BRITTA SANTOS MD Primary Care Provider: SHILPA CORBIN Allergies Allergies No Known Drug Allergies Allergy (Verified 07/31/23 11:55) Hospital Summary - Hospital Course Hospital Course: is a 52 year old male with a hx of Type I DM, CAD, vascular insufficiency, and artificial right eye. He presented by ambulance 07/31/23 from the [place] [facility] where he has been treated for cellulitis. His antibiotic therapy consist of vancomycin and a cephalosporin. After the antibiotics were stopped 14 days ago they noted the development of a mass in the proximal left lateral leg admitted for LLE abscess. Surgery was consulted, I&D performed with JOBY drain placment. S/P I&D PODS#2, patient with JOBY drain, doing well. Endorses mild pain and tightness at the left knee, but states this is improved since procedure. Drain with moderate drainage. Cultures NGTD although this may be due to suppression from prior antibiotic therapy. Will continue patient on oral doxycycline/cefdinir x 10 days. Advised follow up with ID as patient missed his follow up appt. Plan for discharge to SNF for rehab, patient is medically stable and ready for discharge. New Diagnosis: Abscess of LLE New Medications: cefdinir/doxycycline Follow Up: pcp/ID (Dr. Garcia) Results pending: final culture will follow Latest Assessment & Plan I spent greater than 45 minutes [id number] with the patient on the day of discharge performing discharge exam, discussing hospital stay and discharge instructions with patient and caregivers, preparation of discharge records, prescriptions & referral forms and addressing any questions/concerns the patient had as documented above. (1) Abscess of left lower extremity Current Visit: Yes Status: Acute Assessment & Plan: - Start Ancef IV - LLE CT 07/31: IMPRESSION: Picture highly suggesting extensive cellulitis with possible abscess formation. - LLE US 07/31: Targeted soft tissue ultrasound lateral to left knee demonstrates subcutaneous fluid collection measuring 16 x 3.1 x 12.6 cm with low-level internal echoes and no abnormal color perfusion. Rule out hematoma. Doubt abscess since no hyperemic color flow to suggest inflammatory/infectious process. No other focal solid/cystic soft tissue mass. - surgery to evaluate for I&D if needed this evening 08/01: -S/P I&D 07/31/23, patient with JOBY drain, doing well post procedure 08/02: -S/P I&D PODS#2, JOBY drain still in place, Blood and urine cultures NGTD, wound culture x 1 NGTD -PT eval, will need precert for SNF readmission -Continue IV abx until d/c, will d/c with cefdinir/ doxycycline Code(s): L02.416 - CUTANEOUS ABSCESS OF LEFT LOWER LIMB (2) Cellulitis of left lower extremity Current Visit: No Status: Acute Assessment & Plan: - recent hx with completed antibiotics - does not appear to cellulitis at this time 08/01/23: -Will need f/u with ID on d/c Code(s): L03.116 - CELLULITIS OF LEFT LOWER LIMB (3) Hypertension Current Visit: No Status: Chronic Assessment & Plan: - controlled - continue home meds Code(s): I10 - ESSENTIAL (PRIMARY) HYPERTENSION (4) Peripheral vascular disease Current Visit: No Status: Chronic Assessment & Plan: - chronic Code(s): I73.9 - PERIPHERAL VASCULAR DISEASE, UNSPECIFIED (5) Type I diabetes mellitus Current Visit: No Status: Chronic Assessment & Plan: - uncontrolled - A1C 8.33 on 07/07. - Continue lantus, Humalog, start low dose S/S. (6) Obesity Current Visit: No Status: Acute Assessment & Plan: - advised diet control - Follow ADA diet plan Code(s): E66.9 - OBESITY, UNSPECIFIED Additional CC's: SHAR CORBIN - Vitals & Intake/Output Vital Signs: Vital Signs Temperature 96.3 F 08/02/23 07:12 Pulse Rate 90 08/02/23 07:12 Respiratory Rate 18 08/02/23 07:12 Blood Pressure 122/65 08/02/23 07:12 O2 Sat by Pulse Oximetry 99 08/02/23 08:02 Intake & Output: Intake & Output 07/31/23 08/01/23 08/02/23 08/03/23 11:59 11:59 11:59 11:59 Intake Total 600 1910 360 Output Total 70 800 Balance 530 1110 360 Weight 162 kg - Lab Result Diagrams: 08/02/23 07:30 08/02/23 07:30 Lab Results-Last 24 Hrs: Lab Results-Last 24 Hours 08/01/23 08/01/23 08/02/23 Range/Units 15:51 21:03 07:02 WBC (4.0-10.5) x10^3/uL RBC (4.1-5.6) x10^6/uL Hgb (12.5-18.0) g/dL Hct (42-50) % MCV (78-100) fL MCH (26-32) pg MCHC (32-36) g/dL RDW (11.5-14.0) % Plt Count (150-450) x10^3/uL MPV (7.5-11.0) fL Gran % (36.0-66.0) % Immature Gran % (Auto) (0.00-0.4) % Nucleat RBC Rel Count (0.00-0.1) % Eos # (Auto) (0-0.5) x10^3/uL Immature Gran # (Auto) (0.00-0.03) x10^3u/L Absolute Lymphs (auto) (1.0-4.6) x10^3/uL Absolute Monos (auto) (0.0-1.3) x10^3/uL Absolute Nucleated RBC (0.00-0.01) x10^3u/L Lymphocytes % (24.0-44.0) % Monocytes % (0.0-12.0) % Eosinophils % (0.00-5.0) % Basophils % (0.0-0.4) % Absolute Granulocytes (1.4-6.9) x10^3/uL Basophils # (0-0.4) x10^3/uL Sodium (137-145) mmol/L Potassium (3.5-5.1) mmol/L Chloride (98-107) mmol/L Carbon Dioxide (22-30) mmol/L Anion Gap (5-15) MEQ/L BUN (9-20) mg/dL Creatinine (0.66-1.25) mg/dL Estimated GFR ML/MIN Glucose (74-106) mg/dL POC Glucometer 445 H 243 H 100 (74 to 106) mg/dL Calcium (8.4-10.2) mg/dL Total Bilirubin (0.2-1.3) mg/dL AST (17-59) U/L ALT (0-50) U/L Alkaline Phosphatase (38-126) U/L Serum Total Protein (6.3-8.2) g/dL Albumin (3.5-5.0) g/dL 08/02/23 08/02/23 08/02/23 Range/Units 07:30 07:30 11:32 WBC 10.3 (4.0-10.5) x10^3/uL RBC 4.68 (4.1-5.6) x10^6/uL Hgb 12.3 L (12.5-18.0) g/dL Hct 40.7 L (42-50) % MCV 87.0 (78-100) fL MCH 26.3 (26-32) pg MCHC 30.2 L (32-36) g/dL RDW 16.7 H (11.5-14.0) % Plt Count 296 (150-450) x10^3/uL MPV 9.5 (7.5-11.0) fL Gran % 67.4 H (36.0-66.0) % Immature Gran % (Auto) 0.4 (0.00-0.4) % Nucleat RBC Rel Count 0.0 (0.00-0.1) % Eos # (Auto) 0.05 (0-0.5) x10^3/uL Immature Gran # (Auto) 0.04 H (0.00-0.03) x10^3u/L Absolute Lymphs (auto) 2.45 (1.0-4.6) x10^3/uL Absolute Monos (auto) 0.77 (0.0-1.3) x10^3/uL Absolute Nucleated RBC 0.00 (0.00-0.01) x10^3u/L Lymphocytes % 23.7 L (24.0-44.0) % Monocytes % 7.5 (0.0-12.0) % Eosinophils % 0.5 (0.00-5.0) % Basophils % 0.5 (0.0-0.4) % Absolute Granulocytes 6.96 H (1.4-6.9) x10^3/uL Basophils # 0.05 (0-0.4) x10^3/uL Sodium 140 (137-145) mmol/L Potassium 4.0 (3.5-5.1) mmol/L Chloride 102 (98-107) mmol/L Carbon Dioxide 34 H (22-30) mmol/L Anion Gap 8.0 (5-15) MEQ/L BUN 27 H (9-20) mg/dL Creatinine 1.05 (0.66-1.25) mg/dL Estimated GFR > 60.0 ML/MIN Glucose 90 (74-106) mg/dL POC Glucometer 53 L (74 to 106) mg/dL Calcium 8.4 (8.4-10.2) mg/dL Total Bilirubin 0.80 (0.2-1.3) mg/dL AST 35 (17-59) U/L ALT 24 (0-50) U/L Alkaline Phosphatase 115 (38-126) U/L Serum Total Protein 6.7 (6.3-8.2) g/dL Albumin 3.3 L (3.5-5.0) g/dL 08/02/23 08/02/23 Range/Units 12:18 12:56 WBC (4.0-10.5) x10^3/uL RBC (4.1-5.6) x10^6/uL Hgb (12.5-18.0) g/dL Hct (42-50) % MCV (78-100) fL MCH (26-32) pg MCHC (32-36) g/dL RDW (11.5-14.0) % Plt Count (150-450) x10^3/uL MPV (7.5-11.0) fL Gran % (36.0-66.0) % Immature Gran % (Auto) (0.00-0.4) % Nucleat RBC Rel Count (0.00-0.1) % Eos # (Auto) (0-0.5) x10^3/uL Immature Gran # (Auto) (0.00-0.03) x10^3u/L Absolute Lymphs (auto) (1.0-4.6) x10^3/uL Absolute Monos (auto) (0.0-1.3) x10^3/uL Absolute Nucleated RBC (0.00-0.01) x10^3u/L Lymphocytes % (24.0-44.0) % Monocytes % (0.0-12.0) % Eosinophils % (0.00-5.0) % Basophils % (0.0-0.4) % Absolute Granulocytes (1.4-6.9) x10^3/uL Basophils # (0-0.4) x10^3/uL Sodium (137-145) mmol/L Potassium (3.5-5.1) mmol/L Chloride (98-107) mmol/L Carbon Dioxide (22-30) mmol/L Anion Gap (5-15) MEQ/L BUN (9-20) mg/dL Creatinine (0.66-1.25) mg/dL Estimated GFR ML/MIN Glucose (74-106) mg/dL POC Glucometer 71 L 102 (74 to 106) mg/dL Calcium (8.4-10.2) mg/dL Total Bilirubin (0.2-1.3) mg/dL AST (17-59) U/L ALT (0-50) U/L Alkaline Phosphatase (38-126) U/L Serum Total Protein (6.3-8.2) g/dL Albumin (3.5-5.0) g/dL Micro Results-Entire Visit: Microbiology 07/31/23 20:00 Wound Culture - Preliminary Leg - Left Lower NO GROWTH TO DATE 07/31/23 13:10 Blood Culture - Preliminary Blood 07/31/23 13:15 Blood Culture - Preliminary Blood 07/31/23 13:14 Wound Culture - Preliminary Skin - Front NO GROWTH TO DATE Accuchecks Date 08/02/23 Date 08/02/23 Date 08/01/23 - Procedures and Test Procedures and Tests throughout Hospitalization: Therapy Orders & Screens 07/31/23 21:22 Respiratory Therapy Assessment DAILY Comment: Diagnosis: Abscess left lower leg 07/31/23 21:57 Oxygen Nasal Cannula 2 lpm Comment: Diagnosis: Abscess left lower leg 08/02/23 08:44 PT Eval & Treat ( Order) ONCE Reason for Eval:: [place] PLACEMENT Diagnosis: Abscess left lower leg Discharge Exam General Appearance: no apparent distress Neurologic Exam: alert, oriented x 3, cooperative Eye Exam: PERRL Ears, Nose, Throat Exam: normal ENT inspection Neck Exam: normal inspection Respiratory Exam: normal breath sounds, lungs clear Cardiovascular Exam: regular rate/rhythm, normal heart sounds Gastrointestinal/Abdomen Exam: soft, normal bowel sounds Male Genitalia Exam: deferred Rectal Exam: deferred Back Exam: normal inspection Extremity Exam: other (BLE edema with LLE surgical site with JOBY drain placement CDI) Skin Exam: other (BLE edema with LLE surgical site with JOBY drain placement CDI) Wound Assessment: Skin/Wound Assessment Wound/Incision Assessment Start: 07/31/23 15:48 Text: Status: Active Freq: Q4H Protocol: Document 08/02/23 12:00 CLIFF (Rec: 08/02/23 12:51 CLIFF [id number]) Wound/Incision Assessment Left Lower Other Wound Assessment Shift Assessment Wound Type Incision Wound Stage Unstageable Dressing Status Dry & Intact Drainage Amount Minimal Drainage Description Serosanguineous Drainage Odor None/Absent General Appearance Well Approximated,Clean/Dry Wound Bed Greatest Portion Red (Granulation) Surrounding Tissue [place] Topical Solution/Irrigant Saline Irrigant Primary Dressing Gauze Pads Left Upper Foot Drain Type JOBY drain Drainage Description Serosanguineous Drainage Amount (ml) 30 Wound Photo Photo Taken No Final Diagnosis/Problem List - Final Discharge Diagnosis/Problem (1) Abscess of left lower extremity Current Visit: Yes Status: Resolved Code(s): L02.416 - CUTANEOUS ABSCESS OF LEFT LOWER LIMB (2) Cellulitis of left lower extremity Current Visit: No Status: Resolved Code(s): L03.116 - CELLULITIS OF LEFT LOWER LIMB (3) Hypertension Current Visit: No Status: Chronic Code(s): I10 - ESSENTIAL (PRIMARY) HYPERTENSION (4) Peripheral vascular disease Current Visit: No Status: Chronic Code(s): I73.9 - PERIPHERAL VASCULAR DISEASE, UNSPECIFIED (5) Type I diabetes mellitus Current Visit: No Status: Chronic (6) Obesity Current Visit: No Status: Chronic Code(s): E66.9 - OBESITY, UNSPECIFIED - Discharge Disposition: DC TO ANY "OTHER" LONG-TERM Condition: Good Prescriptions: New Cefdinir 300 mg PO BID 10 Days #20 cap Neomy Sulf/Bacitra/Polymyxin * [Triple Antibiotic Ointment] 0 gm TP Q6H PRN PRN PRN Reason: Redness/Irritation Doxycycline Hyclate 100 mg [Vibramycin 100 MG] 100 mg PO BID 10 Days #20 tab Continue Aspirin 325 mg PO DAILY Insulin Lispro [Humalog] 20 units SQ TID Citalopram Hydrobromide 20 mg* [ceLEXa 20 MG] 20 mg PO DAILY Furosemide 20 mg [Lasix 20 mg] 20 mg PO DAILY Furosemide 20 mg [Lasix 20 mg] 40 mg PO HS Lactobacillus Acidophilus [Acidophilus TABLET] 1 tab PO DAILY tablet Potassium Chloride Tab* [Klor Con] 20 meq PO DAILY tablet Gabapentin [Neurontin ] 300 mg PO TID cap Lisinopril 20 mg [Zestril 20 MG] 20 mg PO DAILY tablet Miconazole Nitrate 25 gm MC BID Insulin Glargine [Lantus Insulin] 40 unit SQ HS Insulin Glargine [Lantus Insulin] 24 units SQ QAM Tizanidine HCl 4 mg [Zanaflex 4 MG] 4 mg PO Q4H PRN PRN PRN Reason: Muscle Spasms Neomy Sulf/Bacitra/Polymyxin * [Triple Antibiotic Ointment] 0 gm TP Q6H PRN PRN PRN Reason: ABRASION Follow up with: SHILPA CORBIN MD [Primary Care Provider] - JAIME SAMS [COURTESY STAFF] - 1 Week SHAR GARCIA [NON-STAFF PHY W/O PRIVILEGES] - 1 Week
[2023-08-02 15:40] VITALS: BP 133/84; PULSE 105; RESP 20; TEMP 97.3; O2SAT 100
== END 2023-08-02 16:35 ==
LOC: ED 11:53 → MED SURG 15:42
PROVIDERS: ADMIT Internal Medicine; ATTEND Internal Medicine
DX: L02.416 Cutaneous abscess of left lower limb (principal); L03.116 Cellulitis of left lower limb; I10 Essential (primary) hypertension; I73.9 Peripheral vascular disease, unspecified; E10.9 Type 1 diabetes mellitus without complications; I25.10 Atherosclerotic heart disease of native coronary artery without angina pectoris; E66.9 Obesity, unspecified; Z79.899 Other long term (current) drug therapy; Z20.828 Contact with and (suspected) exposure to other viral communicable diseases
CPT/HCPCS: 10060; 36000; 36415; 73700; 76881; 80053; 80307; 81001; 82947; 83605; 85025; 85027; 87040; 87070; 87086; 94640; 94760; 97161; 99285; Q3014; 93268; J0330; J0690; J1100; J1650; J1817; J1885; J2405; J2704; J3010; A9270-GY; G0378